=== PATIENT | female | born 1955 | race Caucasian/White ===

== ENCOUNTER → 2017-06-22 | Outpatient (CLI) | payer OTHER | END | disposition home or self-care (01) | LOC: LABPAT 15:42 | PROVIDERS: ATTEND Orthopaedic Surgery | DX: Z01.812 Encounter for preprocedural laboratory examination (principal) | CPT/HCPCS: 87070 ==

== ENCOUNTER 2017-09-09 18:27 | Emergency (ER) | payer OTHER ==
[2017-09-09 18:40] VITALS: BP 143/71; PULSE 84; RESP 18; TEMP 98
--- NOTE | 2017-09-09 19:00 | ED ---
General Adult HPI - General Chief complaint: Extremity Injury, Lower Stated complaint: post op pain and incision problem Time Seen by Provider: 09/09/17 18:44 Source: patient, RN notes reviewed Mode of arrival: wheelchair Limitations: no limitations - History of Present Illness Initial comments: 61-year-old female presents emergency 5 chief complaint of left knee and follow- up. Dr. Riley replace her left knee recently and today she just fell. She states she came down on the knee. She states she's having some pain to the knee. She is able to move the foot and the knee. She starts therapy on Sunday for the knee. They state they were concerned due to the fall. That they should be evaluated. There's been no other symptoms and the patient. She did not hit her head there is no loss of consciousness. Patient denies any recent fever, chills, shortness of breath, chest pain, back pain, abdominal pain , nausea vomiting, numbness or tingling, dysuria or hematuria, constipation or diarrhea, headaches or visual changes, or any other current symptoms. - Related Data Home Medications Medication Instructions Recorded Confirmed Amitriptyline HCl [Elavil] 25 mg PO HS 07/25/17 07/30/17 Benztropine Mesylate [Cogentin] 0.5 mg PO HS 07/25/17 07/30/17 Cholecalciferol [Vitamin D3] 1,000 units PO DAILY 07/25/17 07/30/17 Ibuprofen 800 mg PO TID PRN 07/25/17 07/30/17 Metoprolol Succinate (ER) [Toprol 50 mg PO QAM 07/25/17 07/30/17 XL] Minocycline HCl [Minocin] 100 mg PO DAILY 07/25/17 07/30/17 Multivitamins, Thera [Multivitamin 1 tab PO DAILY 07/25/17 07/30/17 (formulary)] Triazolam [Halcion] 0.5 mg PO HS 07/25/17 07/30/17 Vitamin C/Biotin [Hair, Skin and 1 tab PO DAILY 07/25/17 07/30/17 Nails] clonazePAM [Clonazepam] 2 mg PO BID 07/25/17 07/30/17 fluvoxaMINE MALEATE [Fluvoxamine 100 mg PO QAM 07/25/17 07/30/17 Maleate] fluvoxaMINE MALEATE [Fluvoxamine 200 mg PO HS 07/25/17 07/30/17 Maleate] risperiDONE [RisperDAL] 1 mg PO BID 07/25/17 07/30/17 Previous Rx's Medication Instructions Recorded Apixaban [Eliquis] 2.5 mg PO BID #30 tab 07/30/17 Sennosides-Docusate Sodium 2 each PO HS tab 08/01/17 [Senokot-S] Hydrocodone/Acetaminophen [Plush 1 each PO Q6HR PRN #40 tab 08/06/17 5-325] Allergies Allergy/AdvReac Type Severity Reaction Status Date / Time No Known Allergies Allergy Verified 09/09/17 18:39 Review of Systems ROS Statement: Those systems with pertinent positive or pertinent negative responses have been documented in the HPI. ROS Other: All systems not noted in ROS Statement are negative. Past Medical History Past Medical History: Hypertension, Osteoarthritis (OA) History of Any Multi-Drug Resistant Organisms: None Reported Past Surgical History: Joint Replacement Additional Past Surgical History / Comment(s): left knee replacement, ruptured ovarian cyst repair Past Anesthesia/Blood Transfusion Reactions: No Reported Reaction Additional Past Anesthesia/Blood Transfusion Reaction / Comment(s): no problems with prior blood transfusion Past Psychological History: Anxiety Smoking Status: Never smoker Past Alcohol Use History: None Reported Past Drug Use History: None Reported - Past Family History Mother Family Medical History: No Reported History Father Family Medical History: Cancer Additional Family Medical History / Comment(s): jaw and pancreatic CA General Exam - General Exam Comments Initial Comments: General: The patient is awake and alert, in no distress, and does not appear acutely ill. Neck: The neck is supple, there is no tenderness. Cardiovascular: There is a regular rate and rhythm. No murmur, rub or gallop is appreciated. Respiratory: Lungs are clear to auscultation, respirations are non-labored, breath sounds are equal. No wheezes, stridor, rales, or rhonchi. Musculoskeletal: Sensation intact with 2+ pulses of left lower extremity. Fund motion of left hip left knee and left ankle. Patient does appear to have a well -healed surgical incision site. She does have full range of motion. Some anterior tenderness. No swelling no deformity. Neurological: CN II-XII intact, There are no obvious motor or sensory deficits. Coordination appears grossly intact. Speech is normal. Skin: Skin is warm and dry and no rashes or lesions are noted. Psychiatric: Normal mood and affect. Limitations: no limitations Course Vital Signs 09/09/17 18:37 Temperature 98.0 F Pulse Rate 84 Respiratory 18 Rate Blood Pressure 143/71 O2 Sat by Pulse 100 Oximetry Medical Decision Making - Medical Decision Making 61-year-old female presents for left knee pain after fall. This time imaging was reviewed. We discussed results. We discussed when the knee brace. We discussed follow-up with her surgeon. We discussed return parameters all questions. Patient family stated the Jonny management this plan. All questions have been answered. They will be discharged. - Radiology Data Radiology results: report reviewed, image reviewed Disposition Clinical Impression: Contusion of left knee Disposition: HOME SELF-CARE Condition: Stable Instructions: Knee Pain (ED) Additional Instructions: Please use medication as discussed. Please follow up with family doctor if symptoms have not improved over the next two days. Please return to the emergency room if your symptoms increase or worsen or for any other concerns. Referrals: Lilly Martinez MD [Primary Care Provider] - 1-2 days Time of Disposition: 19:30
--- NOTE | 2017-09-09 19:28 | XR ---
EXAMINATION TYPE: XR knee complete LT DATE OF EXAM: 09/09/2017 CLINICAL HISTORY: Fall injury with pain. Knee replacement surgery 3 weeks ago. TECHNIQUE: Three views of the left knee are obtained. COMPARISON: Left knee x-ray August 03, 2017 FINDINGS: There is no acute fracture/dislocation evident in left knee. Metallic hardware from left k nee arthroplasty remain in satisfactory position. There is persistent mild diffuse subcutaneous edema anteriorly. IMPRESSION: There is no acute fracture or dislocation in the left knee.
== END 2017-09-09 19:46 | disposition home or self-care (01) ==
LOC: EC 18:27
DX: S80.02XA Contusion of left knee, initial encounter (principal); I10 Essential (primary) hypertension; F41.9 Anxiety disorder, unspecified; Z96.652 Presence of left artificial knee joint; Z79.899 Other long term (current) drug therapy; W19.XXXA Unspecified fall, initial encounter
CPT/HCPCS: 99283

== ENCOUNTER 2017-09-13 13:23 | Inpatient (IN) | payer OTHER ==
--- NOTE | 2017-09-12 16:39 | HP ---
HISTORY AND PHYSICAL REASON FOR ADMISSION: Surgery scheduled for 09/13/2017 Vicky Lucio is a 61-year-old patient who had previously undergone left total knee arthroplasty on 07/30/2017. She did have a subsequent fall and repair of a quadriceps tendon tear on 08/04/2017. She fell again at home on 09/05/2017 and was seen in the office and noted to have a clinical complete retinacular tear of the left knee. I recommended repair of the left knee retinaculum/capsule. The procedure, risks, complications, benefits, and recovery were discussed with both Vicky and her . They understood and were agreeable. Consent regarding the procedure was obtained. PAST MEDICAL HISTORY: Depression. PAST SURGICAL HISTORY: Bilateral total knee arthroplasty. MEDICATIONS: Amitriptyline, Clonazepam, fluoxetine, metoprolol. ALLERGIES: None. SOCIAL HISTORY: Patient denies current tobacco use. PHYSICAL EXAMINATION: Evaluation of the left knee she has a well-healed anterior incision. She is unable to extend her knee. There is obvious palpable defect medial retinaculum consistent with a complete tear. The patella is everted laterally. Her collateral ligaments are stable. Homans and Yevgeniy is negative. Distal neurovascular exam is intact. RADIOGRAPHS: Radiographs of the left knee revealed a stable appearing total knee arthroplasty. There was an obvious lateral displacement of the patella. IMPRESSION: 1. Left knee retinacular/capsular tear. 2. History of left total knee arthroplasty. PLAN: Repair left knee retinacular/capsular tear. Surgery scheduled for 09/13/2017. MMODL / IJN: [id number] /
[~2017-09-13 13:23] MED LIST: ACETAMINOPHEN TAB 500 MG TAB PO ONE; DEXAMETHASONE SOD PHOSPHATE 10 MG/ML 1 ML VIAL IV ONE; HYDROmorphone 0.5 MG/0.5 ML SYRINGE IVP PRN; LIDOCAINE 1% 20 ML VIAL (10MG/ML) FOR IV START INTRADERMA PRN; MELOXICAM 7.5 MG TAB PO ONE; MIDAZOLAM 2 MG/2 ML VIAL IV PRN; ONDANSETRON 4 MG/2 ML VIAL IVP ONE; SCOPOLAMINE 1.5MG/72HR PATCH TRANSDERM ONE; TRANEXAMIC ACID 1,000 MG in SODIUM CHLORIDE 0.9% 50 ML IVPB ONE; ceFAZolin IN SWFI 2 GM/20 ML SYRINGE IVP ONE
[2017-09-13] MEDS: LACTATED RINGERS 1,000 ML IV SCH (14:49)
[2017-09-13] MEDS ORDERED: TRANEXAMIC ACID 1,000 MG/10 ML VIAL ONE (16:45)
[2017-09-13] MEDS ORDERED: PROPOFOL 10 MG/ML 20 ML VIAL IV ONE (16:45)
[2017-09-13] MEDS ORDERED: HYDROmorphone (PF) 1 MG/ML ONE (16:45)
[2017-09-13] MEDS ORDERED: METOPROLOL TARTRATE 5 MG/5 ML VIAL IVP ONE (16:45)
[2017-09-13] MEDS ORDERED: SUCCINYLCHOLINE CHLORIDE 100 MG/5 ML SYR IV ONE (16:45)
[2017-09-13] MEDS ORDERED: fentaNYL (PF) 50 MCG/ML 2 ML AMP ONE (16:45)
[2017-09-13] MEDS ORDERED: SODIUM CHLORIDE 0.9% 100 ML BAG ONE (16:45)
[2017-09-13] MEDS ORDERED: MIDAZOLAM 2 MG/2 ML VIAL ONE (16:45)
[2017-09-13] MEDS ORDERED: LIDOCAINE 1% INJ 10MG/ML (20 ML MDV) ONE (16:45)
[2017-09-13] MEDS ORDERED: BUPIVACAINE (PF) 0.5% 30 ML VIAL SQ ONE ×2 (17:11)
[2017-09-13] MEDS ORDERED: ceFAZolin 1,000 MG in SODIUM CHLORIDE 0.9% 1,000 ML IRRIGATION ONE ×4 (17:30)
[2017-09-13] MEDS ORDERED: LACTATED RINGERS 1,000 ML IV ONE (18:11)
[2017-09-13] MEDS ORDERED: HYDROmorphone 2 MG/ML 1 ML SYRINGE IVP PRN ×2 (18:30)
[2017-09-13] MEDS ORDERED: ONDANSETRON 4 MG/2 ML VIAL IVP PRN (18:30)
[2017-09-13] MEDS ORDERED: NALOXONE 0.4 MG/ML 1 ML VIAL IV PRN (18:30)
[2017-09-13] MEDS ORDERED: MAGNESIUM HYDROXIDE 2,400 MG/10 ML CUP PO PRN (18:30)
--- NOTE | 2017-09-13 18:32 | P.OP ---
Date of Procedure: 09/13/17 Preoperative Diagnosis: Left knee quadriceps tendon tear and medial retinacular tear Postoperative Diagnosis: Left knee quadriceps tendon tear and medial retinacular tear Procedure(s) Performed: Left knee open quadriceps tendon repair and medial retinacular repair Anesthesia: SEBLE local Surgeon: Clay Cheney Hot Oiler #1: Contreras Mcadams Estimated Blood Loss (ml): 75 Pathology: none sent Condition: stable Disposition: PACU Indications for Procedure: 59-year-old patient seen with a probable left knee medial retinacular tear and quadriceps tendon tear after having undergone recent fall with history of total knee arthroplasty. I recommended open exploration and repair. I discussed the procedure, risks, complications and recovery in detail with both the patient and her . They were agreeable and consent regarding the procedure was obtained. Operative Findings: see description of procedure Description of Procedure: The patient was taken to the operative suite after having received preoperative IV antibiotics. The patient underwent a general anesthetic by the department of anesthesia. A well-padded tourniquet was placed on proximal left lower extremity. The left lower extremity was then prepped and draped in the normal sterile orthopedic fashion. The tourniquet was insufflated. I made an incision over the previous cicatrix sharply through skin. I merely encountered serosanguineous fluid upon entering the subcu cutaneous aspect. There was an obvious complete retinacular tear. Upon further dissection was also a mid substance lateral sided quadriceps tendon tear. The medial quadriceps tendon was intact. We had to carefully dissect this out to make certain we had good tissue. We also dissected out the medial retinaculum to have a good tissue to repair to. All the residual suture was now removed meticulously. We irrigated the wound out copiously with pulse lavage mechanical irrigation. I now repaired the quadriceps tendon tear utilizing #2 Ethibond. I repaired the medial retinaculum with #2 Ethibond. This is all done with simple interrupted sutures. I now oversew this with multiple interrupted #3 Vicryl sutures. This is meticulously repaired. We now took the knee through range of motion and was able to flex to 90 with a good solid repair noted. We irrigated the subcu soft tissues with pulse lavage mechanical irrigation. We now began closing the subcutaneous soft tissues in layers with 2-0 Vicryl. We now repaired the skin with skin sharyn. The subcu soft tissues were infiltrated with 20 mL half percent plain Marcaine. We applied sterile dressings. The tourniquet was released with immediate capillary refill the extremity noted. We now applied sterile web bone Luis Antonio bandage. The extremity is placed in a knee immobilizer in full extension. The patient was awakened, transferred to a bed and taken recovery stable condition. Kristopher AGUIRRE assisted with the procedure.
[2017-09-13] MEDS ORDERED: TRANEXAMIC ACID 1,000 MG/10 ML VIAL IVPB ONE (19:00)
[2017-09-13 20:02] LABS: Glucose,Whole Blood 146 mg/dL (75-99)
[2017-09-13] MEDS: traMADol 50 MG TAB PO SCH (22:32)
[2017-09-13] MEDS: SENNOSIDES-DOCUSATE SODIUM 1 EACH TAB PO SCH (23:42)
[2017-09-13] MEDS: ceFAZolin IN SWFI 2 GM/20 ML SYRINGE IVP SCH (23:45)
[2017-09-13] MEDS: HYDROcodone/APAP 7.5-325MG 1 EACH TAB PO PRN (23:55)
[2017-09-14] MEDS: ACETAMINOPHEN TAB 325 MG TAB PO PRN ×3 (03:11→22:43)
[2017-09-14 04:35] LABS: Appearance,Urine Clear (Clear); Bilirubin,Urine Negative (Negative); Blood,Urine Negative (Negative); Color,Urine Yellow; Glucose,Urine (UA) Negative (Negative); Ketones,Urine Negative (Negative); Leukocyte Esterase,Urine Negative (Negative); Nitrite,Urine Negative (Negative); Protein,Urine Negative (Negative); Specific Gravity,Urine 1.005 (1.001-1.035); Urobilinogen,Urine <2.0 mg/dL (<2.0)
[2017-09-14 05:13] VITALS: BMI 33.8
[2017-09-14] MEDS: LACTATED RINGERS 1,000 ML IV SCH ×2 (05:13→23:10)
[2017-09-14 07:22] LABS: Glucose,Whole Blood 150 mg/dL (75-99)
[2017-09-14 07:26] LABS: Basophils % (A) 0 %; Eosinophils % (A) 0 %; HCT 35.5 % (34.0-46.0); HGB 10.4 gm/dL (11.4-16.0); Hypochromasia Marked; Lymphocytes % (A) 11 %; MCH 22.7 pg (25.0-35.0); MCHC 29.3 g/dL (31.0-37.0); MCV 77.6 fL (80.0-100.0); Mean Platelet Volume 6.7; Monocytes # (A) 0.7 k/uL (0-1.0); Monocytes % (A) 8 %; Neutrophils # (A) 7.1 k/uL (1.3-7.7); Neutrophils % (A) 79 %; Platelet Count 276 k/uL (150-450); RBC 4.57 m/uL (3.80-5.40); RDW 14.6 % (11.5-15.5); WBC 8.9 k/uL (3.8-10.6)
[2017-09-14] MEDS: HYDROcodone/APAP 7.5-325MG 1 EACH TAB PO PRN ×2 (08:27→16:40)
[2017-09-14] MEDS: traMADol 50 MG TAB PO SCH ×4 (08:28→22:05)
[2017-09-14] MEDS: RIVAROXABAN 10 MG TAB PO SCH (08:28)
[2017-09-14] MEDS: ceFAZolin IN SWFI 2 GM/20 ML SYRINGE IVP SCH (08:29)
--- NOTE | 2017-09-14 12:35 | P.PN ---
Subjective Progress Note Date: 09/14/17 Principal diagnosis: Status post medial retinacular repair, quadriceps tendon repair left knee Patient is visualized today resting in her hospital bed. She appears comfortable. She does admit to discomfort in the knee. She is utilizing a knee immobilizer, postoperative bandage is intact. She denies any headaches, lightheadedness, chest pain or shortness of breath. Objective - Vital Signs Vital signs: Vital Signs Temp 98.7 F 09/14/17 07:00 Pulse 84 09/14/17 07:00 Resp 16 09/14/17 07:00 BP 146/54 09/14/17 07:00 Pulse Ox 93 L 09/14/17 07:00 Intake & Output 09/13/17 09/14/17 09/14/17 18:59 06:59 18:59 Intake Total 1102 950 200 Output Total 75 Balance 1027 950 200 Weight 101 kg Intake: IV 1102 400 Intake, IV Titration 550 Amount Lactated Ringers 1,000 ml 550 @ 50 mls/hr IV .Q20H DK Rx#:[id number] Oral 200 Output: Estimated Blood Loss 75 Other: Voiding Method Diaper - Exam Left lower extremity: Initial postoperative bandage is intact with Luis Antonio wrap. The immobilizer is in good position. Plantar flexion, dorsiflexion, EHL, FHL are intact. Sensory exam light touch is intact, dorsal pedis pulses 2+. - Labs CBC & Chem 7: 09/14/17 06:34 Labs: Abnormal Lab Results - Last 24 Hours (Table) 09/13/17 09/14/17 09/14/17 Range/Units 19:40 06:34 07:07 Hgb 10.4 L (11.4-16.0) gm/dL MCV 77.6 L (80.0-100.0) fL MCH 22.7 L (25.0-35.0) pg MCHC 29.3 L (31.0-37.0) g/dL POC Glucose (mg/dL) 146 H 150 H (75-99) mg/dL Assessment and Plan Plan: Assessment: 1. Postop day #1 status post left knee medial retinacular repair, quadriceps tendon repair Plan: 1. Pain control, continue use of oral medications, avoid IV narcotics if possible 2. Nonweightbearing left lower extremity 3. Utilize knee immobilizer 4. GI and DVT prophylaxis, continue Xarelto 10 mg 5. Ice and elevate 6. Medical recommendations 7. Discharge planning: Plan for patient to be discharged to rehab facility, we will await placement Time with Patient: Less than 30
--- NOTE | 2017-09-14 12:52 | XR ---
EXAMINATION TYPE: XR chest 1V portable DATE OF EXAM: 09/14/2017 COMPARISON: 08/02/2017 HISTORY: ECF placement TECHNIQUE: Single frontal view of the chest is obtained. FINDINGS: Calcified lymph nodes are noted. There is a calcified nodule in the left upper lobe. Near changes are most typical atelectasis. There is some limitation at the left lung base. Arthropathy of the shoulders. IMPRESSION: Subsegmental linear atelectasis noted with no diagnostic evidence of acute infiltrate. C orrelate for chronic granulomatous disease. 7 mm nodule left upper lobe also likely is related to gra nuloma and stable from the previous exam. This could be confirmed with CT scan.
[2017-09-14] MEDS ORDERED: HYDROmorphone 0.5 MG/0.5 ML SYRINGE IVP PRN ×2 (16:09)
[2017-09-14] MEDS ORDERED: clonazePAM 1 MG TAB PO STA (17:21)
[2017-09-14] MEDS: SENNOSIDES-DOCUSATE SODIUM 1 EACH TAB PO SCH (20:06)
[2017-09-14] MEDS: AMITRIPTYLINE HCL 25 MG TAB PO SCH (20:08)
[2017-09-14] MEDS: risperiDONE 1 MG TAB PO SCH (20:08)
[2017-09-14] MEDS: BENZTROPINE MESYLATE 0.5 MG TAB PO SCH (20:08)
[2017-09-14] MEDS: TEMAZEPAM 30 MG CAP PO SCH (20:11)
[2017-09-14] MEDS: clonazePAM 1 MG TAB PO SCH (20:33)
[2017-09-14] MEDS ORDERED: clonazePAM 1 MG TAB PO PRN (20:34)
[2017-09-14] MEDS ORDERED: SENNOSIDES-DOCUSATE SODIUM 1 EACH TAB PO SCH (21:00)
--- NOTE | 2017-09-14 22:02 | CONS ---
CONSULTATION DATE OF CONSULTATION: 09/14/2017 REASON FOR CONSULTATION: Medical management requested by Dr. Cheney. CONSULTATION: This is a 61-year-old patient whom I initially saw in consultation on her last admission on 07/30/2017, when the patient had undergone a left total knee arthroplasty. The patient had some delirium postoperatively, and on that admission patient suffered a hyperreflexic injury to the left knee and patient was taken back for repair of tendon. The patient this time had to be taken back into the OR for repair of the quadriceps, and left leg is in a brace. The patient's chronic stable medical conditions include essential hypertension, osteoarthritis, anxiety. Some pain is present in the operative site. REVIEW OF SYSTEMS: CONSTITUTIONAL: None. HEENT: None. RESPIRATORY: None. CARDIOVASCULAR: None. GASTROINTESTINAL: Chronic constipation. GENITOURINARY: None. MUSCULOSKELETAL: Arthritic pain in the joints, especially in the left knee. DERMATOLOGICAL: None. HEMATOLOGICAL: None. LYMPHATICS: None. PSYCHIATRY: Anxiety. NEUROLOGICAL: None. PAST MEDICAL HISTORY: 1. Hypertension. 2. Osteoarthritis. 3. Chronic constipation. 4. Anxiety. PAST SURGICAL HISTORY: 1. Ruptured ovarian cyst. 2. Left total knee arthroplasty and injury of tendons around the left knee joint. SOCIAL HISTORY: Does not smoke or drink alcohol. Lives with Ko. HOME MEDICATIONS: 1. Senokot-S 2 tablets p.o. at bedtime. 2. Toprol-XL 50 mg a day. 3. Risperdal 1 mg p.o. b.i.d. 4. Ibuprofen 800 mg t.i.d. p.r.n. 5. Aspirin 325 p.o. daily. 6. Fluvoxamine 100 mg p.o. daily and 200 mg at bedtime. 7. Clonazepam 2 mg p.o. b.i.d. 8. Hair/skin/nails 1 tablet p.o. daily. 9. Halcion 0.5 mg at bedtime. 10.Multivitamin. 11.Vitamin D3 1000 units p.o. daily. 12.Cogentin 0.5 mg at bedtime. 13.Elavil 25 mg p.o. at bedtime. ALLERGIES: NORCO. PHYSICAL EXAMINATION: Temperature 97.6, pulse 90, respiration 20, blood pressure 167/77, pulse ox 98% on room air earlier in the day. GENERAL APPEARANCE: Well built; BMI 33.9. Sitting up, slightly anxious. EYES: Pupils equal. Conjunctivae normal. HEENT: Oral cavity normal. NECK: JVD not raised. Mass not palpable. RESPIRATORY: Effort normal. Lungs are clear. CARDIOVASCULAR: First and second sounds normal. No edema. ABDOMEN: Soft, nontender. Liver and spleen not palpable. LYMPHATIC: No lymph node palpable in neck or axillae. PSYCHIATRY: Alert and oriented x3. Mood and affect anxious-appearing. NEUROLOGICAL: Pupils equal. Cranial nerves grossly intact. Power and sensation grossly intact. EXTREMITIES: Left leg is in a brace. INVESTIGATIONS: White count 8.9, hemoglobin 10.4, platelets 276. UA negative. ASSESSMENT: 1. Left knee quadriceps tendon repair and medial retinacular tear repair with her left leg in a brace. 2. Obesity; body mass index of 33.9. 3. Essential hypertension. 4. Primary osteoarthritis. 5. Anxiety not otherwise specified. 6. Chronic constipation, idiopathic. PLAN: Home medications will be resumed. Care was discussed with the patient. I did tell the nurse that once patient gets her evening dose of antipsychotics, patient should be allowed to rest and not be woken up except to keep a close eye on her. Thank you, Dr. Cheney. MMNHANL / IJN: [id number] /
[2017-09-15] MEDS: clonazePAM 1 MG TAB PO SCH ×2 (07:15→20:13)
[2017-09-15] MEDS: risperiDONE 1 MG TAB PO SCH ×2 (07:16→20:09)
[2017-09-15] MEDS: CHOLECALCIFEROL 1,000 UNIT TAB PO SCH (07:16)
[2017-09-15] MEDS: RIVAROXABAN 10 MG TAB PO SCH (07:16)
[2017-09-15] MEDS: MULTIVITAMINS, THERA 1 EACH TAB PO SCH (07:16)
[2017-09-15] MEDS: METOPROLOL SUCCINATE (ER) 50 MG TAB.ER.24H PO SCH (07:16)
[2017-09-15] MEDS: traMADol 50 MG TAB PO SCH ×3 (07:18→19:09)
[2017-09-15] MEDS: LACTATED RINGERS 1,000 ML IV SCH (07:21)
--- NOTE | 2017-09-15 11:23 | P.PN ---
Progress Note - Text Progress Note Date: 09/15/17 Patient seen lying in bed comfortably. She reports some pain along the anterior aspect of the knee. She has no other complaints. The dressing and bandage are removed. The incision is well approximated and healing well. There is no drainage. Homans and Yevgeniy negative. Distal neurovascular exam is intact. Impression: Status post left knee quadriceps tendon and medial retinacular repair History left total knee arthroplasty Plan: Medical management DVT prophylaxis Pain control Await rehab transfer
[2017-09-15] MEDS: IBUPROFEN 800 MG TAB PO PRN ×2 (12:05→19:09)
[2017-09-15] MEDS: CEPHALEXIN 500 MG CAP PO SCH ×3 (12:06→20:10)
[2017-09-15 14:11] VITALS: RESP 16
--- NOTE | 2017-09-15 19:39 | PN ---
PROGRESS NOTE DATE OF SERVICE: 09/15/2017 ATTENDING NOTE: The patient seen and examined by me. I discussed with my nurse practitioner, Ms. Dudley. The patient is status post left knee surgery, doing better. Tolerating a diet. Patient is calm. EXAMINATION: Afebrile, blood pressure 140/66. CARDIOVASCULAR: First and second sounds normal. PSYCH: AO x3. ASSESSMENT: 1. Left knee quadriceps tendon repair. 2. Anxiety and depression, not otherwise specified. PLAN: Continue current medication and treatment plan. Labs are noted. MMODL / IJN: [id number] /
[2017-09-15] MEDS: BENZTROPINE MESYLATE 0.5 MG TAB PO SCH (20:09)
[2017-09-15] MEDS: AMITRIPTYLINE HCL 25 MG TAB PO SCH (20:09)
[2017-09-15] MEDS: TEMAZEPAM 30 MG CAP PO SCH (20:13)
[2017-09-16] MEDS: traMADol 50 MG TAB PO SCH ×5 (04:50→22:59)
[2017-09-16 07:59] LABS: HCT 36.7 % (34.0-46.0); HGB 10.7 gm/dL (11.4-16.0); Hypochromasia Marked; MCH 23.2 pg (25.0-35.0); MCHC 29.1 g/dL (31.0-37.0); MCV 79.8 fL (80.0-100.0); Mean Platelet Volume 6.7; Platelet Count 257 k/uL (150-450); RDW 15.1 % (11.5-15.5); WBC 7.6 k/uL (3.8-10.6)
[2017-09-16] MEDS: clonazePAM 1 MG TAB PO SCH ×2 (08:47→19:58)
[2017-09-16] MEDS: CEPHALEXIN 500 MG CAP PO SCH ×4 (08:48→22:59)
[2017-09-16] MEDS: RIVAROXABAN 10 MG TAB PO SCH (08:48)
[2017-09-16] MEDS: MULTIVITAMINS, THERA 1 EACH TAB PO SCH (08:49)
[2017-09-16] MEDS: CHOLECALCIFEROL 1,000 UNIT TAB PO SCH (08:49)
[2017-09-16] MEDS: METOPROLOL SUCCINATE (ER) 50 MG TAB.ER.24H PO SCH (08:49)
[2017-09-16] MEDS: risperiDONE 1 MG TAB PO SCH ×2 (08:50→19:58)
[2017-09-16] MEDS: LACTATED RINGERS 1,000 ML IV SCH (08:50)
[2017-09-16] MEDS: IBUPROFEN 800 MG TAB PO PRN ×2 (09:09→16:23)
[2017-09-16 10:20] LABS: Eosinophils # (M) 0.15 k/uL (0-0.7); Lymphocytes # (M) 2.89 k/uL (1.0-4.8); Monocytes # (M) 0.91 k/uL (0-1.0); Neutrophils # (M) 3.65 k/uL (1.3-7.7); Neutrophils % (M) 48 %; Nucleated Red Blood Cells 0 /100 WBC (0-0); Poikilocytosis (M) Present; Total Cells Counted 100
--- NOTE | 2017-09-16 11:44 | P.PN ---
Progress Note - Text Progress Note Date: 09/16/17 Patient seen lying in bed. Patient appears comfortable and reports decreased pain today. She has no new complaints. Incision is well approximated. There is no drainage. Homans and Yevgeniy negative. Distal neurovascular exam is intact. Impression: Status post repair left knee quadriceps tendon and retinacular tear History left total knee arthroplasty Plan: Medical management DVT prophylaxis Anticipate transfer to rehab tomorrow
[2017-09-16] MEDS: BENZTROPINE MESYLATE 0.5 MG TAB PO SCH (19:55)
[2017-09-16] MEDS: AMITRIPTYLINE HCL 25 MG TAB PO SCH (19:55)
[2017-09-16] MEDS: TEMAZEPAM 30 MG CAP PO SCH (19:58)
[2017-09-16] MEDS: SENNOSIDES-DOCUSATE SODIUM 1 EACH TAB PO SCH (19:58)
--- NOTE | 2017-09-16 20:49 | PN ---
PROGRESS NOTE DATE OF SERVICE: September 16, 2017. ATTENDING NOTE: Patient seen and examined by me. I discussed with nurse practitioner, Ms. Dudley. The patient tolerating a diet. Pain is controlled. EXAM: Lungs are clear. Cardiovascular 1st and 2nd sounds normal. Psych AO x3. ASSESSMENT: Left knee surgical intervention. Other medical treatment currently stable. PLAN: Care was discussed with the patient. Continue treatment plan. MMODL / IJN: [id number] /
--- NOTE | 2017-09-16 21:52 | P.PN ---
Progress Note - Text Progress Note Date: 09/16/17 DATE OF SERVICE: 09/16/2017 PRESENTING COMPLAINT: Quadriceps repair of the left leg. Medical management HISTORY OF PRESENT ILLNESS: 61-year-old female who is status post left knee open quadriceps tendon repair and medial retinacular repair. . INTERVAL HISTORY: 09/16/2017: Patient lying in bed appears comfortable. Afebrile, vital signs stable, Complaining of gas and some abdominal cramping. Up with assistance tolerating her diet, last BM prior to admission. REVIEW OF SYSTEMS: Done for constitutional ,cardiovascular, GI, pulmonary with relevant findings as above. CURRENT MEDICATIONS Ibuprofen, lidocaine, milk of magnesia, Toprol-XL, Theragran, Zofran, Risperdal , Zofran, Xarelto, Senokot-S, Restoril, Ultram. PHYSICAL EXAM VITAL SIGNS: Temperature 97.4, pulse 91, respiratory rate 16, blood pressure 133/79, oxygen saturation 96% GENERAL APPEARANCE: Lying in bed, not in distress. HEENT: Normocephalic, Pupils equal. Conjunctiva normal. JVD not raised. Mass not palpable.: RESPIRATORY: Respiratory effort normal. Lungs clear to auscultation. CARDIOVASCULAR: First and second sounds normal. No edema. ABDOMEN: Soft. Liver and spleen not palpable. No tenderness. No mass palpable. PSYCHIATRY: Alert and oriented x3. Mood and affect normal. EXTREMITIES: Left leg is in a brace. INVESTIGATIONS: Hemoglobin 10.7, ASSESSMENT: -Left knee quadriceps tendon repair and medial retinacular tear repair with her left knee and leg in a brace. -Obesity body mass index of 33.9. -Essential hypertension. -Primary osteoarthritis. -Anxiety not otherwise specified. -Chronic constipation, idiopathic. PLAN: Continue current medication and treatment plan, mobilization per orthopedics. Plan of care discussed at the bedside with the patient she is in agreement. We will follow closely. 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 Noel
--- NOTE | 2017-09-16 21:55 | P.PN ---
Progress Note - Text Progress Note Date: 09/15/17 DATE OF SERVICE: 09/15/2017 PRESENTING COMPLAINT: Quadriceps repair of the left leg. Medical management HISTORY OF PRESENT ILLNESS: 61-year-old female who is status post left knee open quadriceps tendon repair and medial retinacular repair. . INTERVAL HISTORY: 09/16/2017: Patient lying in bed appears comfortable. Afebrile, vital signs stable, Complaining of gas and some abdominal cramping. Up with assistance tolerating her diet, last BM prior to admission. 09/15/2017: Lying in bed appears somewhat restless. Afebrile, vital signs stable. Has not yet had a bowel movement. Complains of some abdominal cramping. Up with assistance, tolerating her diet, last BM prior to admission. REVIEW OF SYSTEMS: Done for constitutional ,cardiovascular, GI, pulmonary with relevant findings as above. CURRENT MEDICATIONS Ibuprofen, lidocaine, milk of magnesia, Toprol-XL, Theragran, Zofran, Risperdal , Zofran, Xarelto, Senokot-S, Restoril, Ultram. PHYSICAL EXAM VITAL SIGNS: Temperature 97.0, pulse 87, respirations 16, blood pressure 142/66, oxygen saturation 94%. GENERAL APPEARANCE: Lying in bed, not in distress. HEENT: Normocephalic, Pupils equal. Conjunctiva normal. JVD not raised. Mass not palpable.: RESPIRATORY: Respiratory effort normal. Lungs clear to auscultation. CARDIOVASCULAR: First and second sounds normal. No edema. ABDOMEN: Soft. Liver and spleen not palpable. No tenderness. No mass palpable. PSYCHIATRY: Alert and oriented x3. Mood and affect normal. EXTREMITIES: Left leg is in a brace. INVESTIGATIONS: None new ASSESSMENT: -Left knee quadriceps tendon repair and medial retinacular tear repair with her left knee and leg in a brace. -Obesity body mass index of 33.9. -Essential hypertension. -Primary osteoarthritis. -Anxiety not otherwise specified. -Chronic constipation, idiopathic. PLAN: Continue current medication and treatment plan, mobilization per orthopedics. Plan of care discussed at the bedside with the patient she is in agreement. We will follow closely. 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 Noel
[2017-09-17 07:52] LABS: Anion Gap 7 mmol/L; Blood Urea Nitrogen 9 mg/dL (7-17); Calcium 9.1 mg/dL (8.4-10.2); Carbon Dioxide 31 mmol/L (22-30); Chloride 106 mmol/L (98-107); Glucose 92 mg/dL (74-99); Potassium 3.8 mmol/L (3.5-5.1); Sodium 144 mmol/L (137-145)
[2017-09-17] MEDS: clonazePAM 1 MG TAB PO SCH ×2 (08:55→20:49)
[2017-09-17] MEDS: POLYETHYLENE GLYCOL 3350 17 GM POWD.PACK PO SCH (08:55)
[2017-09-17] MEDS: risperiDONE 1 MG TAB PO SCH ×2 (08:56→20:49)
[2017-09-17] MEDS: CEPHALEXIN 500 MG CAP PO SCH ×4 (08:57→20:48)
[2017-09-17] MEDS: METOPROLOL SUCCINATE (ER) 50 MG TAB.ER.24H PO SCH (08:57)
[2017-09-17] MEDS: RIVAROXABAN 10 MG TAB PO SCH (08:58)
[2017-09-17] MEDS: traMADol 50 MG TAB PO SCH ×4 (09:01→20:48)
[2017-09-17] MEDS: MULTIVITAMINS, THERA 1 EACH TAB PO SCH (12:25)
[2017-09-17] MEDS: CHOLECALCIFEROL 1,000 UNIT TAB PO SCH (12:26)
--- NOTE | 2017-09-17 12:42 | P.PN ---
Subjective Progress Note Date: 09/17/17 Principal diagnosis: Status post medial retinacular repair, quadriceps tendon repair left knee Patient is visualized today resting in her hospital bed. She appears comfortable. She is utilizing a knee immobilizer brace. She denies any headaches, lightheadedness, chest pain or shortness of breath. Objective - Vital Signs Vital signs: Vital Signs Temp 98.4 F 09/17/17 07:00 Pulse 87 09/17/17 07:00 Resp 16 09/17/17 07:00 BP 126/78 09/17/17 07:00 Pulse Ox 96 09/17/17 07:00 Intake & Output 09/16/17 09/17/17 09/17/17 18:59 06:59 18:59 Intake Total 400 Balance 400 Intake: Intake, IV Titration 400 Amount Lactated Ringers 1,000 ml 400 @ 50 mls/hr IV .Q20H DK Rx#:[id number] Other: Voiding Method Bedside Commode Diaper # Voids 1 3 - Exam Left lower extremity: Incision is clean, dry and intact. The immobilizer is in good position. Plantar flexion, dorsiflexion, EHL, FHL are intact. Sensory exam light touch is intact, dorsal pedis pulses 2+. - Labs CBC & Chem 7: 09/16/17 07:03 09/17/17 07:00 Labs: Abnormal Lab Results - Last 24 Hours (Table) 09/17/17 Range/Units 07:00 Carbon Dioxide 31 H (22-30) mmol/L Assessment and Plan Plan: Assessment: 1. Postop day #2 status post left knee medial retinacular repair, quadriceps tendon repair Plan: 1. Pain control, continue use of oral medications, avoid IV narcotics if possible 2. Nonweightbearing left lower extremity 3. Utilize knee immobilizer 4. GI and DVT prophylaxis, continue Xarelto 10 mg 5. Ice and elevate 6. Medical recommendations 7. Discharge planning: plan to discharge to rehab today Time with Patient: Less than 30
--- NOTE | 2017-09-17 12:49 | P.DS ---
Providers Date of admission: 09/13/17 14:12 Expected date of discharge: 09/17/17 Attending physician: Clay Cheney Consults: 09/13/17 18:33 Consult Physician Routine Consulting Provider: Kennedy Noel Consult Reason/Comments: Medical Management Do you want consulting provider notified?: Yes Primary care physician: Lilly Martinez Hospital Course: Date of admission: 09/13/2017 Date of discharge: 09/17/2017 Admission diagnosis: status post left knee quadriceps tendon repair and medial retinacular repair Discharge diagnosis: same Attending physician: Dr. Cheney Surgical procedures: Left knee quadriceps tendon repair and medial retinacular repair Brief history: Patient is a 61-year-old female with a history of a previous left total knee arthroplasty. Patient had been doing fairly well with her rehab , she had a fall at home about a week and a half ago. It was determined there was damage to the medial retinacular and possible quadriceps tendon. She was scheduled for elective medial retinacular repair and possible quadriceps tendon repair involving the left knee on 09/13/2017. Hospital course: Details of patient's surgery can be found in operative report. Patient tolerated the procedure well and was subsequently transported to orthopedic floor. Patient's orthopeidc and medical care was provided daily. Patient had daily laboratory tests performed for evaluation of overall blood counts . Patient had daily physical therapy to include strengthening range of motion as well as education with walker ambulation. Patient was treated with Xarelto for their postoperative DVT prophylaxis during their inpatient stay. Patient was noted to have a relatively uneventful postoperative course. Patient reported satisfactory pain control with oral pain medications by postoperative day 0. Patient showed satisfactory progress with physical therapy. Patient moved steadily through the program and had no difficulty meeting the goals by postoperative day 4. Given patient's otherwise satisfactory course and having met physical therapy goals, plan is to discharge patient rehab on postoperative day 4. Discharge condition/disposition: Patient will be discharged to rehab in stable condition. Discharge medications: Instructions are given on resumption of patient's normal daily medications per primary care recommendation, in addition patient will be prescribed Williams 7.5 mg/325 mg, tramadol 50 mg, Xarelto 10 mg. Discharge instructions: 1. Wound care and infection precautions, keep incision dry and covered while showering, no lotions, creams, moisturizers. No soaking, tubs, pools, hottubs. Do not scrub over the incision. 2. Nonweightbearing left lower extremity 3. Ice and elevate when necessary. Do not exceed 20 minutes per hour with ice pack. 4. Utilize compression sleeve until seen at first follow up appointment. 5. Visiting nursing care. 6. Home physical therapy. 7. Pain meds and anticoagulants per prescription. 8. Pain medication has potential to cause constipation. Increase oral fluid and fiber intake. Contact primary care provider if you have not had a bowel movement within 48 hours after discharge 9. No anti-inflammatory medication until discussed at first post operative visit, this including Motrin, Aleve, Mobic, Diclofenac. 10. Follow up in office at 2 weeks postop with Kristopher Mcadams PA-C 11. Follow up with your primary care doctor 7-10 days after discharge. 12. Contact [facility] with any questions, . Procedures: Open quadriceps tendon repair and medial retinacular repair left knee, history of left total knee arthroplasty Patient Condition at Discharge: Good Plan - Discharge Summary Discharge Rx Participant: Yes New Discharge Prescriptions: New HYDROcodone/APAP 7.5-325MG [Williams 7.5] 1 each PO Q8HR PRN #40 tab PRN Reason: Pain Rivaroxaban [Xarelto] 10 mg PO DAILY #28 tab traMADol HCl [Ultram] 50 mg PO Q6H PRN #40 tab PRN Reason: Pain No Action Triazolam [Halcion] 0.5 mg PO HS Multivitamins, Thera [Multivitamin (formulary)] 1 tab PO DAILY fluvoxaMINE MALEATE [Fluvoxamine Maleate] 200 mg PO HS fluvoxaMINE MALEATE [Fluvoxamine Maleate] 100 mg PO QAM Benztropine Mesylate [Cogentin] 0.5 mg PO HS Metoprolol Succinate (ER) [Toprol XL] 50 mg PO QAM clonazePAM [Clonazepam] 2 mg PO BID Amitriptyline HCl [Elavil] 25 mg PO HS risperiDONE [RisperDAL] 1 mg PO BID Ibuprofen 800 mg PO TID PRN PRN Reason: Pain Vitamin C/Biotin [Hair, Skin and Nails] 1 tab PO DAILY Cholecalciferol [Vitamin D3] 1,000 units PO DAILY Aspirin 325 mg PO DAILY Sennosides-Docusate Sodium [Senokot-S] 2 tab PO HS Discharge Medication List Amitriptyline HCl [Elavil] 25 mg PO HS 07/25/17 [History] Benztropine Mesylate [Cogentin] 0.5 mg PO HS 07/25/17 [History] Cholecalciferol [Vitamin D3] 1,000 units PO DAILY 07/25/17 [History] Ibuprofen 800 mg PO TID PRN 07/25/17 [History] Metoprolol Succinate (ER) [Toprol XL] 50 mg PO QAM 07/25/17 [History] Multivitamins, Thera [Multivitamin (formulary)] 1 tab PO DAILY 07/25/17 [History ] Triazolam [Halcion] 0.5 mg PO HS 07/25/17 [History] Vitamin C/Biotin [Hair, Skin and Nails] 1 tab PO DAILY 07/25/17 [History] clonazePAM [Clonazepam] 2 mg PO BID 07/25/17 [History] fluvoxaMINE MALEATE [Fluvoxamine Maleate] 100 mg PO QAM 07/25/17 [History] fluvoxaMINE MALEATE [Fluvoxamine Maleate] 200 mg PO HS 07/25/17 [History] risperiDONE [RisperDAL] 1 mg PO BID 07/25/17 [History] Sennosides-Docusate Sodium [Senokot-S] 2 tab PO HS 09/13/17 [History] HYDROcodone/APAP 7.5-325MG [Williams 7.5] 1 each PO Q8HR PRN #40 tab 09/17/17 [Rx] Rivaroxaban [Xarelto] 10 mg PO DAILY #28 tab 09/17/17 [Rx] traMADol HCl [Ultram] 50 mg PO Q6H PRN #40 tab 09/17/17 [Rx] Follow up Appointment(s)/Referral(s): Delores Hester, [NON-STAFF] - As Needed Contreras Mcadams PAC [PHYSICIAN HEEL SHAPER] - 2 Weeks Activity/Diet/Wound Care/Special Instructions: Orthopedic Discharge Instructions: 1. Wound care and infection precautions, keep incision dry and covered while showering, no lotions, creams, moisturizers. No soaking, pools, hot tubs. Do not scrub over incision. 2. Nonweightbearing left lower extremity. 3. Ice and elevate when necessary. Do not exceed 20 minutes per hour with ice pack. 4. Utilize compression sleeve until seen at first follow up appointment. 5. Visiting nursing care. 6. Home physical therapy. 7. Pain meds and anticoagulants per prescription. 8. Pain medication has potential to cause constipation. Increase oral fluid and fiber intake. Contact primary care provider if you have not had a bowel movement within 48 hours after discharge. 9. No anti-inflammatory medication until discussed at first post operative visit, this including Motrin, Aleve, Mobic, Diclofenac. 10. Follow up in office at 2 weeks postop with Kristopher Mcadams PA-C 11. Follow up with your primary care doctor 7-10 days after discharge. 12. Contact [facility] with any questions, . NON WEIGHTBEARING LEFT LOWER EXTREMITY UTILIZE KNEE IMMOBILIZER AT ALL TIMES Discharge Disposition: TRANSFER TO SNF/ECF
[2017-09-17] MEDS: IBUPROFEN 800 MG TAB PO PRN (13:18)
--- NOTE | 2017-09-17 16:50 | PN ---
PROGRESS NOTE DATE OF SERVICE: 09/17/17 ATTENDING NOTE: Patient seen and examined by me. I discussed with nurse practitioner, Cintiacamelia. The patient in bed. Had some couple of loose stools, has getting laxatives. Otherwise, tolerating a diet. Pain is well controlled. EXAMINATION: Temp 98.4, pulse 87, respirations 16, blood pressure 122/78, pulse ox 96% on room air. Lying in bed comfortable. Lungs are clear. Cardiovascular 1st and second sounds normal. INVESTIGATIONS: White count 7.6, potassium 3.8. ASSESSMENT: 1. Surgery on the left leg. 2. Diarrhea from laxatives to be cut back. PLAN: Care was discussed with the patient. We will DC the Marcella INGRAM / ROBINSON: [id number] /
[2017-09-17] MEDS: ACETAMINOPHEN TAB 325 MG TAB PO PRN (17:09)
--- NOTE | 2017-09-17 20:11 | P.PN ---
Progress Note - Text Progress Note Date: 09/17/17 DATE OF SERVICE: 09/17/2017 PRESENTING COMPLAINT: Quadriceps repair of the left leg. Medical management HISTORY OF PRESENT ILLNESS: 61-year-old female who is status post left knee open quadriceps tendon repair and medial retinacular repair. . INTERVAL HISTORY: 09/17/2017: Patient lying in bed appears comfortable. No acute overnight events, continues to complain of some abdominal cramping and bloating. Asking for more laxatives. Up with assistance, tolerating her diet eating between 50 and 75% of her meals, continue nonweightbearing status of the left lower extremity and use the knee immobilizer. 09/16/2017: Patient lying in bed appears comfortable. Afebrile, vital signs stable, Complaining of gas and some abdominal cramping. Up with assistance tolerating her diet, last BM prior to admission. REVIEW OF SYSTEMS: Done for constitutional ,cardiovascular, GI, pulmonary with relevant findings as above. CURRENT MEDICATIONS Tylenol, [place], Elavil, Cogentin, Keflex, cholecalciferol, clonazepam, Luvox, Dilaudid, ibuprofen, milk of magnesia, Toprol-XL, Theragran vitamins, Narcan, Zofran, MiraLAX, Risperdal, Xarelto Agueda Ultram. PHYSICAL EXAM VITAL SIGNS: Temperature 98.4, pulse 87, respiratory rate 16, blood pressure 126/78, oxygen saturation 96% on room air. GENERAL APPEARANCE: Lying in bed, not in distress. HEENT: Normocephalic, Pupils equal. Conjunctiva normal. JVD not raised. Mass not palpable.: RESPIRATORY: Respiratory effort normal. Lungs clear to auscultation. CARDIOVASCULAR: First and second sounds normal. No edema. ABDOMEN: Soft. Liver and spleen not palpable. No tenderness. No mass palpable. PSYCHIATRY: Alert and oriented x3. Mood and affect normal. EXTREMITIES: Left leg is in a brace. INVESTIGATIONS: Hemoglobin 10.7, ASSESSMENT: -Left knee quadriceps tendon repair and medial retinacular tear repair with her left knee and leg in a brace. -Obesity body mass index of 33.9. -Essential hypertension. -Primary osteoarthritis. -Anxiety not otherwise specified. -Chronic constipation, idiopathic. PLAN: Continue discontinue Senokot S, mobilization per orthopedics. Plan of care discussed at the bedside with the patient she is in agreement. We will follow closely. 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 Noel
[2017-09-17] MEDS: TEMAZEPAM 30 MG CAP PO SCH (20:48)
[2017-09-17] MEDS: BENZTROPINE MESYLATE 0.5 MG TAB PO SCH (20:49)
[2017-09-17] MEDS: AMITRIPTYLINE HCL 25 MG TAB PO SCH (20:49)
[2017-09-18] MEDS: clonazePAM 1 MG TAB PO SCH (08:20)
[2017-09-18] MEDS: traMADol 50 MG TAB PO SCH (08:20)
[2017-09-18] MEDS: CHOLECALCIFEROL 1,000 UNIT TAB PO SCH (08:21)
[2017-09-18] MEDS: CEPHALEXIN 500 MG CAP PO SCH (08:21)
[2017-09-18] MEDS: RIVAROXABAN 10 MG TAB PO SCH (08:21)
[2017-09-18] MEDS: POLYETHYLENE GLYCOL 3350 17 GM POWD.PACK PO SCH (08:21)
[2017-09-18] MEDS: METOPROLOL SUCCINATE (ER) 50 MG TAB.ER.24H PO SCH (08:22)
[2017-09-18] MEDS: MULTIVITAMINS, THERA 1 EACH TAB PO SCH (08:22)
[2017-09-18] MEDS: risperiDONE 1 MG TAB PO SCH (08:22)
[2017-09-18 12:08] LABS: Glucose,Whole Blood 101 mg/dL (75-99)
[2017-09-18 15:24] VITALS: BP 158/80; PULSE 96; TEMP 97.6
--- NOTE | 2017-09-18 20:00 | PN ---
PROGRESS NOTE DATE OF SERVICE: 09/18/2017 ATTENDING NOTE: This patient was seen and examined by me. I discussed the case with the nurse practitioner Ms. Dudley. The patient is lying in bed, comfortable, tolerating a diet. No new issues. On examination, afebrile, pulse 95, respiration 16, blood pressure 158/80, pulse ox 97% on room air. Lungs are clear. CARDIOVASCULAR: First and second sounds normal. PSYCH: Awake. Answering questions. INVESTIGATIONS: No blood work from today. ASSESSMENT: Left knee quadriceps tendon repair. PLAN: Other medication and treatment plan noted, to continue. MMODL / IJN: [id number] /
--- NOTE | 2017-09-18 20:02 | P.PN ---
Progress Note - Text Progress Note Date: 09/18/17 DATE OF SERVICE: 09/18/2017 PRESENTING COMPLAINT: Quadriceps repair of the left leg. Medical management HISTORY OF PRESENT ILLNESS: 61-year-old female who is status post left knee open quadriceps tendon repair and medial retinacular repair. . INTERVAL HISTORY: 09/18/2017: In bed appears comfortable. No acute overnight events slept well. Mild complaints of abdominal cramping and bloating. Up with assistance, tolerating her diet eating between 50 and 75% of her meals, continue nonweightbearing status of the left lower extremity and using a knee immobilizer. 09/17/2017: Patient lying in bed appears comfortable. No acute overnight events, continues to complain of some abdominal cramping and bloating. Asking for more laxatives. Up with assistance, tolerating her diet eating between 50 and 75% of her meals, continue nonweightbearing status of the left lower extremity and use the knee immobilizer. 09/16/2017: Patient lying in bed appears comfortable. Afebrile, vital signs stable, Complaining of gas and some abdominal cramping. Up with assistance tolerating her diet, last BM prior to admission. REVIEW OF SYSTEMS: Done for constitutional ,cardiovascular, GI, pulmonary with relevant findings as above. CURRENT MEDICATIONS Tylenol, [place], Elavil, Cogentin, Keflex, cholecalciferol, clonazepam, Luvox, Dilaudid, ibuprofen, milk of magnesia, Toprol-XL, Theragran vitamins, Narcan, Zofran, MiraLAX, Risperdal, Xarelto Agueda Ultram. PHYSICAL EXAM VITAL SIGNS: Temperature 97.8, pulse 92, respirations 16, blood pressure 160/81, oxygen saturation 97% on room air GENERAL APPEARANCE: Lying in bed, not in distress. HEENT: Normocephalic, Pupils equal. Conjunctiva normal. JVD not raised. Mass not palpable.: RESPIRATORY: Respiratory effort normal. Lungs clear to auscultation. CARDIOVASCULAR: First and second sounds normal. No edema. ABDOMEN: Soft. Liver and spleen not palpable. No tenderness. No mass palpable. PSYCHIATRY: Alert and oriented x3. Mood and affect normal. EXTREMITIES: Left leg is in a brace. INVESTIGATIONS: Accu-Cheks noted ASSESSMENT: -Left knee quadriceps tendon repair and medial retinacular tear repair with her left knee and leg in a brace. -Obesity body mass index of 33.9. -Essential hypertension. -Primary osteoarthritis. -Anxiety not otherwise specified. -Chronic constipation, idiopathic. PLAN: Continue discontinue Senokot S, mobilization per orthopedics. Patient is medically stable for discharge to rehabilitation Center. 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 Noel
== END 2017-09-18 16:26 | DRG 502 ==
LOC: 2ORMAIN 14:12 → 3SUR 19:11
PROVIDERS: ADMIT Orthopaedic Surgery; ATTEND Orthopaedic Surgery
PROC: 0LQM0ZZ Repair Left Upper Leg Tendon, Open Approach (ICD-10-PCS; principal; 2017-09-13 16:45)
DX: S76.112A Strain of left quadriceps muscle, fascia and tendon, initial encounter (principal); E66.9 Obesity, unspecified; F32.9 Major depressive disorder, single episode, unspecified; F41.9 Anxiety disorder, unspecified; I10 Essential (primary) hypertension; K59.09 Other constipation; M19.91 Primary osteoarthritis, unspecified site; Z79.899 Other long term (current) drug therapy; Z96.653 Presence of artificial knee joint, bilateral; Z79.1 Long term (current) use of non-steroidal anti-inflammatories (NSAID); Z79.82 Long term (current) use of aspirin; Z88.5 Allergy status to narcotic agent; R19.7 Diarrhea, unspecified
CPT/HCPCS: 71045; 80048; 81003; 85025; 87086; 94760

== ENCOUNTER 2017-09-21 12:28 | Emergency (ER) | payer OTHER ==
[2017-09-21] MEDS ORDERED: SODIUM CHLORIDE 0.9% 500 ML IV STA (12:55)
[2017-09-21] MEDS ORDERED: SODIUM CHLORIDE 0.9% 1,000 ML IV STA (12:55)
--- NOTE | 2017-09-21 13:27 | ED ---
General Adult HPI - General Source: patient, EMS, RN notes reviewed, old records reviewed Mode of arrival: EMS Limitations: altered mental status <Brigido Quezada - Last Filed: 09/21/17 14:26> <Ar Lindquist - Last Filed: 09/21/17 23:54> <Brigido Dobbs - Last Filed: 09/22/17 06:22> - General Chief complaint: Altered Mental Status Stated complaint: Altered Mental Status Time Seen by Provider: 09/21/17 12:32 - History of Present Illness Initial comments: This is a 61-year-old female to the ER for evaluation regarding altered mental status. Patient is brought in by EMS for evaluation. Patient unable to give history, recent cares prolonged bizarre story about going to nightclub coming back with another man not her and being discharged. Got tired (Brigido Quezada) - Related Data Home Medications Medication Instructions Recorded Confirmed Amitriptyline HCl [Elavil] 25 mg PO HS 07/25/17 09/21/17 Benztropine Mesylate [Cogentin] 0.5 mg PO HS 07/25/17 09/21/17 Cholecalciferol [Vitamin D3] 1,000 units PO DAILY 07/25/17 09/21/17 Ibuprofen 800 mg PO Q8H PRN 07/25/17 09/21/17 Metoprolol Succinate (ER) [Toprol 50 mg PO QAM 07/25/17 09/21/17 XL] Multivitamins, Thera [Multivitamin 1 tab PO DAILY 07/25/17 09/21/17 (formulary)] Triazolam [Halcion] 0.5 mg PO HS 07/25/17 09/21/17 clonazePAM [Clonazepam] 2 mg PO BID 07/25/17 09/21/17 fluvoxaMINE MALEATE [Fluvoxamine 100 mg PO QAM 07/25/17 09/21/17 Maleate] fluvoxaMINE MALEATE [Fluvoxamine 200 mg PO HS 07/25/17 09/21/17 Maleate] risperiDONE [RisperDAL] 1 mg PO BID 07/25/17 09/21/17 Sennosides-Docusate Sodium 2 tab PO HS 09/13/17 09/21/17 [Senokot-S] Ascorbic Acid [Vitamin C] 500 mg PO DAILY 09/21/17 09/21/17 Previous Rx's Medication Instructions Recorded Rivaroxaban [Xarelto] 10 mg PO DAILY #28 tab 09/17/17 traMADol HCl [Ultram] 50 mg PO Q6H PRN #40 tab 09/17/17 Allergies Allergy/AdvReac Type Severity Reaction Status Date / Time acetaminophen [From [place]] Allergy Hallucinati Verified 09/21/17 13:26 ons hydrocodone [From [place]] Allergy Hallucinati Verified 09/21/17 13:26 ons Review of Systems ROS Other: All systems not noted in ROS Statement are negative. <Brigido Quezada - Last Filed: 09/21/17 14:26> ROS Other: All systems not noted in ROS Statement are negative. <Ar Lindquist - Last Filed: 09/21/17 23:54> ROS Other: All systems not noted in ROS Statement are negative. <Brigido Dobbs - Last Filed: 09/22/17 06:22> ROS Statement: Those systems with pertinent positive or pertinent negative responses have been documented in the HPI. Past Medical History Past Medical History: Hypertension, Osteoarthritis (OA) Additional Past Medical History / Comment(s): uses walker, left leg in knee immobilizer. Recent injury to left knee states "knee gave out", narrow esophagus History of Any Multi-Drug Resistant Organisms: None Reported Past Surgical History: Joint Replacement Additional Past Surgical History / Comment(s): left knee replacement, and repair , right knee replacement and revision, ruptured ovarian cyst repair Past Anesthesia/Blood Transfusion Reactions: No Reported Reaction Additional Past Anesthesia/Blood Transfusion Reaction / Comment(s): no problems with prior blood transfusion Past Psychological History: Anxiety Smoking Status: Never smoker Past Alcohol Use History: None Reported Past Drug Use History: None Reported - Past Family History Mother Family Medical History: No Reported History Father Family Medical History: Cancer Additional Family Medical History / Comment(s): jaw and pancreatic CA <Brigido Quezada - Last Filed: 09/21/17 14:26> General Exam Limitations: altered mental status General appearance: alert, in no apparent distress Head exam: Present: atraumatic, normocephalic, normal inspection Eye exam: Present: normal appearance, PERRL, EOMI. Absent: scleral icterus, conjunctival injection, periorbital swelling ENT exam: Present: normal exam, mucous membranes moist Neck exam: Present: normal inspection. Absent: tenderness, meningismus, lymphadenopathy Respiratory exam: Present: normal lung sounds bilaterally. Absent: respiratory distress, wheezes, rales, rhonchi, stridor Cardiovascular Exam: Present: regular rate, normal rhythm, normal heart sounds. Absent: systolic murmur, diastolic murmur, rubs, gallop, clicks GI/Abdominal exam: Present: soft, normal bowel sounds. Absent: distended, tenderness, guarding, rebound, rigid Extremities exam: Present: normal inspection, full ROM, normal capillary refill. Absent: tenderness, pedal edema, joint swelling, calf tenderness Back exam: Present: normal inspection Neurological exam: Present: alert, oriented X3, CN II-XII intact Psychiatric exam: Present: normal affect, normal mood Skin exam: Present: warm, dry, intact, normal color. Absent: rash <Brigido Quezada - Last Filed: 09/21/17 14:26> Course <Brigido Quezada - Last Filed: 09/21/17 14:26> <Ar Lindquist - Last Filed: 09/21/17 23:54> <Brigido Dobbs - Last Filed: 09/22/17 06:22> Vital Signs 09/21/17 09/21/17 09/21/17 12:31 13:44 17:45 Temperature 99.0 F 98.3 F Pulse Rate 104 H 89 81 Respiratory 19 20 20 Rate Blood Pressure 166/88 166/77 158/62 O2 Sat by Pulse 100 99 99 Oximetry 09/21/17 09/22/17 21:00 03:21 Temperature 98.6 F Pulse Rate 75 95 Respiratory 20 16 Rate Blood Pressure 159/86 163/82 O2 Sat by Pulse 99 98 Oximetry - Reevaluation(s) Reevaluation #1: 09/21/17 13:27 Patient unable to give accurate history secondary to delusional thinking ( Brigido Quezada) Reevaluation #2: 09/21/17 14:26 A sugar medically clear for psychiatric evaluation (Brigido Quezada) Reevaluation #3: 09/21/17 23:54 Patient reevaluated after sign out, she was medically cleared awaiting EPS evaluation. Patient is acutely psychotic and paranoid. She has been petitioned , I completed a cert. Currently awaiting final disposition. Patient's care will be signed out to Dr. Dobbs at shift change. (Ar Lindquist) EKG Findings - EKG Comments: EKG Findings:: EKG shows normal sinus rhythm rate of 95, TX 164, QRS 72, QTC 424 <Brigido Quezada - Last Filed: 09/21/17 14:26> Medical Decision Making - Lab Data Result diagrams: 09/21/17 13:31 09/21/17 13:31 <Brigido Quezada - Last Filed: 09/21/17 14:26> - Lab Data Result diagrams: 09/21/17 13:31 09/21/17 13:31 <Ar Lindquist - Last Filed: 09/21/17 23:54> - Lab Data Result diagrams: 09/21/17 13:31 09/21/17 13:31 <Brigido Dobbs - Last Filed: 09/22/17 06:22> - Lab Data Lab Results 09/21/17 09/21/17 09/21/17 Range/Units 13:31 13:31 13:31 WBC 11.5 H (3.8-10.6) k/uL RBC 5.03 (3.80-5.40) m/uL Hgb 11.4 (11.4-16.0) gm/dL Hct 38.6 (34.0-46.0) % MCV 76.9 L (80.0-100.0) fL MCH 22.7 L (25.0-35.0) pg MCHC 29.5 L (31.0-37.0) g/dL RDW 16.7 H (11.5-15.5) % Plt Count 314 (150-450) k/uL Neutrophils % 75 % Lymphocytes % 14 % Monocytes % 7 % Eosinophils % 1 % Basophils % 0 % Neutrophils # 8.6 H (1.3-7.7) k/uL Lymphocytes # 1.7 (1.0-4.8) k/uL Monocytes # 0.8 (0-1.0) k/uL Eosinophils # 0.1 (0-0.7) k/uL Basophils # 0.1 (0-0.2) k/uL Hypochromasia Marked Anisocytosis Slight Microcytosis Slight PT (9.0-12.0) sec INR (<1.2) APTT (22.0-30.0) sec Sodium 143 (137-145) mmol/L Potassium 4.1 (3.5-5.1) mmol/L Chloride 109 H (98-107) mmol/L Carbon Dioxide 24 (22-30) mmol/L Anion Gap 10 mmol/L BUN 4 L (7-17) mg/dL Creatinine 0.73 (0.52-1.04) mg/dL Est GFR (MDRD) Af Amer >60 (>60 ml/min/1.73 sqM) Est GFR (MDRD) Non-Af >60 (>60 ml/min/1.73 sqM) Glucose 99 (74-99) mg/dL Plasma Lactic Acid Eugene (0.7-2.0) mmol/L Calcium 9.7 (8.4-10.2) mg/dL Phosphorus 4.2 (2.5-4.5) mg/dL Magnesium 2.2 (1.6-2.3) mg/dL Total Bilirubin 0.5 (0.2-1.3) mg/dL AST 35 (14-36) U/L ALT 36 (9-52) U/L Alkaline Phosphatase 76 (38-126) U/L Total Creatine Kinase 70 (30-135) U/L CK-MB (CK-2) <0.2 (0.0-2.4) ng/mL CK-MB (CK-2) Rel Index Troponin I <0.012 (0.000-0.034) ng/mL Total Protein 6.7 (6.3-8.2) g/dL Albumin 3.7 (3.5-5.0) g/dL TSH 1.260 (0.465-4.680) mIU/L Urine Color Urine Appearance (Clear) Urine pH (5.0-8.0) Ur Specific [place] (1.001-1.035) Urine Protein (Negative) Urine Glucose (UA) (Negative) Urine Ketones (Negative) Urine Blood (Negative) Urine Nitrite (Negative) Urine Bilirubin (Negative) Urine Urobilinogen (<2.0) mg/dL Ur Leukocyte Esterase (Negative) Urine RBC (0-5) /hpf Urine WBC (0-5) /hpf Urine Mucus (None) /hpf Salicylates <1.0 mg/dL Urine Opiates Screen (NotDetected) Ur Oxycodone Screen (NotDetected) Urine Methadone Screen (NotDetected) Ur Propoxyphene Screen (NotDetected) Acetaminophen <10.0 ug/mL Ur Barbiturates Screen (NotDetected) U Tricyclic Antidepress (NotDetected) Ur Phencyclidine Scrn (NotDetected) Ur Amphetamines Screen (NotDetected) U Methamphetamines Scrn (NotDetected) U Benzodiazepines Scrn (NotDetected) Urine Cocaine Screen (NotDetected) U Marijuana (THC) Screen (NotDetected) Serum Alcohol <10 mg/dL 09/21/17 09/21/17 09/21/17 Range/Units 13:31 13:31 13:40 WBC (3.8-10.6) k/uL RBC (3.80-5.40) m/uL Hgb (11.4-16.0) gm/dL Hct (34.0-46.0) % MCV (80.0-100.0) fL MCH (25.0-35.0) pg MCHC (31.0-37.0) g/dL RDW (11.5-15.5) % Plt Count (150-450) k/uL Neutrophils % % Lymphocytes % % Monocytes % % Eosinophils % % Basophils % % Neutrophils # (1.3-7.7) k/uL Lymphocytes # (1.0-4.8) k/uL Monocytes # (0-1.0) k/uL Eosinophils # (0-0.7) k/uL Basophils # (0-0.2) k/uL Hypochromasia Anisocytosis Microcytosis PT 11.6 (9.0-12.0) sec INR 1.2 H (<1.2) APTT 23.9 (22.0-30.0) sec Sodium (137-145) mmol/L Potassium (3.5-5.1) mmol/L Chloride (98-107) mmol/L Carbon Dioxide (22-30) mmol/L Anion Gap mmol/L BUN (7-17) mg/dL Creatinine (0.52-1.04) mg/dL Est GFR (MDRD) Af Amer (>60 ml/min/1.73 sqM) Est GFR (MDRD) Non-Af (>60 ml/min/1.73 sqM) Glucose (74-99) mg/dL Plasma Lactic Acid Eugene 1.1 (0.7-2.0) mmol/L Calcium (8.4-10.2) mg/dL Phosphorus (2.5-4.5) mg/dL Magnesium (1.6-2.3) mg/dL Total Bilirubin (0.2-1.3) mg/dL AST (14-36) U/L ALT (9-52) U/L Alkaline Phosphatase (38-126) U/L Total Creatine Kinase (30-135) U/L CK-MB (CK-2) (0.0-2.4) ng/mL CK-MB (CK-2) Rel Index Troponin I (0.000-0.034) ng/mL Total Protein (6.3-8.2) g/dL Albumin (3.5-5.0) g/dL TSH (0.465-4.680) mIU/L Urine Color Yellow Urine Appearance Cloudy H (Clear) Urine pH 6.5 (5.0-8.0) Ur Specific [place] 1.013 (1.001-1.035) Urine Protein Trace H (Negative) Urine Glucose (UA) Negative (Negative) Urine Ketones 1+ H (Negative) Urine Blood Negative (Negative) Urine Nitrite Negative (Negative) Urine Bilirubin Negative (Negative) Urine Urobilinogen <2.0 (<2.0) mg/dL Ur Leukocyte Esterase Negative (Negative) Urine RBC 2 (0-5) /hpf Urine WBC 1 (0-5) /hpf Urine Mucus Many H (None) /hpf Salicylates mg/dL Urine Opiates Screen Not Detected (NotDetected) Ur Oxycodone Screen Not Detected (NotDetected) Urine Methadone Screen Not Detected (NotDetected) Ur Propoxyphene Screen Not Detected (NotDetected) Acetaminophen ug/mL Ur Barbiturates Screen Not Detected (NotDetected) U Tricyclic Antidepress Detected H (NotDetected) Ur Phencyclidine Scrn Not Detected (NotDetected) Ur Amphetamines Screen Not Detected (NotDetected) U Methamphetamines Scrn Not Detected (NotDetected) U Benzodiazepines Scrn Detected H (NotDetected) Urine Cocaine Screen Not Detected (NotDetected) U Marijuana (THC) Screen Not Detected (NotDetected) Serum Alcohol mg/dL Disposition <Brigido Queazda - Last Filed: 09/21/17 14:26> <Ar Lindquist - Last Filed: 09/21/17 23:54> Time of Disposition: 06:22 <Brigido Dobbs - Last Filed: 09/22/17 06:22> Clinical Impression: Acute psychosis Disposition: TRANSFER TO PSYCH HOSP/UNIT Referrals: Jose Enrique Ordaz MD [Primary Care Provider] - 1-2 days
[2017-09-21 13:51] LABS: Anisocytosis Slight; Basophils # (A) 0.1 k/uL (0-0.2); Basophils % (A) 0 %; Eosinophils # (A) 0.1 k/uL (0-0.7); Eosinophils % (A) 1 %; HCT 38.6 % (34.0-46.0); HGB 11.4 gm/dL (11.4-16.0); Hypochromasia Marked; Lymphocytes # (A) 1.7 k/uL (1.0-4.8); Lymphocytes % (A) 14 %; MCH 22.7 pg (25.0-35.0); MCHC 29.5 g/dL (31.0-37.0); MCV 76.9 fL (80.0-100.0); Mean Platelet Volume 7.4; Microcytosis Slight; Monocytes # (A) 0.8 k/uL (0-1.0); Monocytes % (A) 7 %; Neutrophils # (A) 8.6 k/uL (1.3-7.7); Neutrophils % (A) 75 %; Platelet Count 314 k/uL (150-450); RBC 5.03 m/uL (3.80-5.40); RDW 16.7 % (11.5-15.5); WBC 11.5 k/uL (3.8-10.6)
[2017-09-21 14:09] LABS: Appearance,Urine Cloudy (Clear); Bilirubin,Urine Negative (Negative); Blood,Urine Negative (Negative); Color,Urine Yellow; Glucose,Urine (UA) Negative (Negative); Ketones,Urine 1+ (Negative); Leukocyte Esterase,Urine Negative (Negative); Mucus,Urine Many /hpf; Nitrite,Urine Negative (Negative); PH, Urine 6.5 (5.0-8.0); Protein,Urine Trace (Negative); RBC,Urine 2 /hpf (0-5); Specific Gravity,Urine 1.013 (1.001-1.035); Urobilinogen,Urine <2.0 mg/dL (<2.0); WBC,Urine 1 /hpf (0-5)
[2017-09-21 14:10] LABS: INR 1.2 (<1.2); Partial Thromboplastin Time 23.9 sec (22.0-30.0); Prothrombin Time 11.6 sec (9.0-12.0)
[2017-09-21 14:13] LABS: ALT 36 U/L (9-52); AST 35 U/L (14-36); Acetaminophen <10.0 ug/mL; Albumin 3.7 g/dL (3.5-5.0); Alcohol <10 mg/dL; Alkaline Phosphatase 76 U/L (38-126); Anion Gap 10 mmol/L; Blood Urea Nitrogen 4 mg/dL (7-17); Calcium 9.7 mg/dL (8.4-10.2); Carbon Dioxide 24 mmol/L (22-30); Chloride 109 mmol/L (98-107); Glucose 99 mg/dL (74-99); Magnesium 2.2 mg/dL (1.6-2.3); Phosphorous 4.2 mg/dL (2.5-4.5); Potassium 4.1 mmol/L (3.5-5.1); Salicylate <1.0 mg/dL; Sodium 143 mmol/L (137-145); Total Bilirubin 0.5 mg/dL (0.2-1.3); Total Protein 6.7 g/dL (6.3-8.2)
--- NOTE | 2017-09-21 14:15 | CT ---
EXAMINATION TYPE: CT brain wo con DATE OF EXAM: 09/21/2017 COMPARISON: NONE HISTORY: 61-year-old female with weakness, confusion, altered mental status TECHNIQUE: Examination was done in axial plane without intravenous contrast. Coronal and sagittal r econstructions performed. CT DLP: 1090.4 mGycm Automated exposure control for dose reduction was used. FINDINGS: There is no evidence of acute intracranial hemorrhage, acute ischemic changes, mass, mass-effect, or extra-axial fluid collection. There is no effacement of cerebral sulci or basal subarachnoid cister ns. There is no hydrocephalus. There is no midline shift. Robles-white matter distinction is preserv ed. Mild generalized cerebral cortical atrophy. Minimal patchy deep white matter hypodensities suggest mi ld burden of chronic small vessel ischemic disease. There is frothy opacification of the left sphenoid sinus. Mastoid air cells well pneumatized. Orbits and globes are intact. IMPRESSION: 1. Mild cerebral atrophy. No acute intracranial abnormality seen. 2. Frothy opacification left sphenoid sinus can be seen with acute sinusitis. Clinically correlate.
[2017-09-21 14:20] LABS: Creatine Kinase 70 U/L (30-135)
[2017-09-21 14:27] LABS: Amphetamine Screen,Urine Not Detected (NotDetected); Barbiturate Screen,Urine Not Detected (NotDetected); Benzodiazepines Screen,Urine Detected (NotDetected); Cocaine Screen,Urine Not Detected (NotDetected); Methadone Screen, Urine Not Detected (NotDetected); Opiate Screen,Urine Not Detected (NotDetected); Oxycodone Screen, Urine Not Detected (NotDetected); Phencyclidine Screen,Urine Not Detected (NotDetected); Tricyclic Antidepressant,Urine Detected (NotDetected); Urn Cannabinoid Scrn Not Detected (NotDetected)
[2017-09-21 14:31] LABS: Creatine Kinase MB <0.2 ng/mL (0.0-2.4); Troponin I <0.012 ng/mL (0.000-0.034)
[2017-09-22 03:22] VITALS: TEMP 98.6
[2017-09-22 08:47] VITALS: BP 155/94; PULSE 112; RESP 18
== END 2017-09-22 09:14 ==
LOC: EC 12:28
DX: F23 Brief psychotic disorder (principal); I10 Essential (primary) hypertension; F41.9 Anxiety disorder, unspecified; Z88.6 Allergy status to analgesic agent; Z88.5 Allergy status to narcotic agent; Z79.899 Other long term (current) drug therapy
CPT/HCPCS: 36415; 70450; 80053; 80306; 80320; 81001; 82550; 82553; 83520; 83605; 83735; 84100; 84443; 84484; 85025; 85610; 85730; 87086; 93005; 96360; 99285

== ENCOUNTER 2017-10-22 13:11 | Inpatient (IN) | payer OTHER ==
[2017-10-19 11:24] VITALS: BMI 29.3
--- NOTE | 2017-10-21 13:01 | HP ---
HISTORY AND PHYSICAL REASON FOR ADMISSION: Surgery scheduled for 10/22/2017 Vicky Murray is a 61-year-old patient who had previously undergone a total knee arthroplasty on the left side in July 30, 2017. She subsequently had a retinacular tear that was repaired and re-tore that and was subsequently repaired again. She was seen in the office recently and was noted to have a re-rupture or re- tearing of the retinaculum/capsule of the left knee. I recommended repair of this recurrent tear. I discussed the procedure, risks, complications, and recovery in simple layman's terms with the patient including the possibility of encountering an irreparable tear. Given the multiple times that has occurred. She understands this and wished to proceed. Consent was obtained for the recommended proposed procedure. PAST MEDICAL HISTORY: Depression, hypertension. PAST SURGICAL HISTORY: Right total knee arthroplasty with revision, left total knee arthroplasty with retinacular capsular and quadriceps repair. MEDICATIONS: Amitriptyline, clonazepam, Benzamine, fluoxetine, Halcion, metoprolol, , tramadol. ALLERGIES: None reported. SOCIAL HISTORY: Patient denies current tobacco use. PHYSICAL EXAMINATION: Evaluation of left knee, there is evidence of well-healed anterior incision. Range of motion is -35 to 100. Significant quadriceps weakness. There is obvious defect with medial retinaculum extending all the way up into the area of the quadriceps tendon. The hamstrings are stable. The collateral ligaments appear stable. RADIOGRAPHS: Radiographs of the left knee revealed stable appearing total knee arthroplasty as well as a lateralization abnormally of the patellar area. IMPRESSION: 1. Left knee recurrent medial retinacular/capsular tear. 2. History of left total knee arthroplasty. 3. Depression. 4. Hypertension. PLAN: Left knee medial retinacular/capsular repair. Surgery scheduled for 10/22/17. MMODL / IJN: [id number] /
[~2017-10-22 13:11] MED LIST changes: -HYDROmorphone 0.5 MG/0.5 ML SYRINGE IVP PRN; -LIDOCAINE 1% 20 ML VIAL (10MG/ML) FOR IV START INTRADERMA PRN; +MORPHINE SULFATE 4 MG/ML SYRINGE IV PRN
[2017-10-22] MEDS: LACTATED RINGERS 1,000 ML IV SCH (13:42)
[2017-10-22] MEDS ORDERED: SUCCINYLCHOLINE CHLORIDE 100 MG/5 ML SYR IV ONE (15:24)
[2017-10-22] MEDS ORDERED: LIDOCAINE 1% INJ 10MG/ML (20 ML MDV) ONE (15:24)
[2017-10-22] MEDS ORDERED: PROPOFOL 10 MG/ML 20 ML VIAL IV ONE (15:24)
[2017-10-22] MEDS ORDERED: ePHEDrine SULFATE/0.9% NACL/PF 50 MG/5 ML SYRINGE IV ONE (15:24)
[2017-10-22] MEDS ORDERED: WATER FOR INJECTION, STERILE 10 ML VIAL IV ONE (15:24)
[2017-10-22] MEDS ORDERED: fentaNYL (PF) 50 MCG/ML 2 ML AMP ONE (15:24)
[2017-10-22] MEDS ORDERED: MIDAZOLAM 2 MG/2 ML VIAL ONE (15:24)
[2017-10-22] MEDS ORDERED: ceFAZolin 1,000 MG in SODIUM CHLORIDE 0.9% 1,000 ML IRRIGATION ONE (15:51)
[2017-10-22] MEDS ORDERED: LACTATED RINGERS 1,000 ML IV ONE (16:18)
[2017-10-22] MEDS ORDERED: BACITRACIN 500 UNIT/GM OINT 28.4 GM TUBE TOPICAL ONE (16:35)
[2017-10-22] MEDS ORDERED: NALOXONE 0.4 MG/ML 1 ML VIAL IV PRN (17:13)
[2017-10-22] MEDS ORDERED: ONDANSETRON 4 MG/2 ML VIAL IVP PRN (17:13)
--- NOTE | 2017-10-22 17:17 | P.OP ---
Date of Procedure: 10/22/17 Preoperative Diagnosis: Left knee medial retinacular/capsular tear Postoperative Diagnosis: Left knee medial retinacular/capsular tear Procedure(s) Performed: Left knee arthrotomy with repair medial capsular tear Implants: None Anesthesia: SEBLE Surgeon: Clay Cheney Ip Attorney #1: Contreras Mcadams Estimated Blood Loss (ml): 25 Pathology: none sent Condition: stable Disposition: PACU Indications for Procedure: 61-year-old patient who was seen with a recurrent left knee medial capsular tear with history of previous total knee arthroplasty history of previous repairs 2. I reviewed the complexly of the situation with her and her family. I recommended repair. I discussed the procedure, risks, complications and recovery. They were agreeable and consent was obtained. Operative Findings: see description of procedure Description of Procedure: The patient was taken to the operative suite. The patient underwent a general anesthetic by the primary anesthesia. She received preoperative IV antibiotics. A well-padded tourniquet was placed proximal left lower extremity. The left lower extremity was now prepped and draped in the normal sterile orthopedic fashion. The extremity was elevated and tourniquet insufflated to 350. I now made an incision over the previous cicatrix sharply through skin. Once I would dissected subcutaneously we immediately a tear of the medial capsule. We meticulously moved all residual sutures that were present. The wound was irrigated with pulse lavage mechanical irrigation. We debrided some nonviable tissue. The total knee arthroplasty appeared stable. There was evidence for any infective process clinically. We now meticulously began preparing that medial capsule utilizing combination of Ethibond and #3 Vicryl. Once that was completed I took the knee to about 90 of flexion with good stability of the repair site. No meticulously began repairing the subcutaneous tissues utilizing 2-0 Vicryl. I now repaired the skin with skin sharyn. We applied an about ointment and sterile dressings. Sterile web roll was applied. Tourniquet was released and immediate capillary refill the entire extremity noted. Given the noncompliance of the patient I placed her in a long leg cast with the knee fully extended and the ankle in neutral position. I created a window to check an incision anteriorly. This was secured with Luis Antonio bandage. The patient was awakened, transferred to bed and recovery stable condition. Kristopher AGUIRRE assisted with the procedure.
[2017-10-22] MEDS ORDERED: clonazePAM 1 MG TAB PO SCH (21:30)
[2017-10-22] MEDS: TEMAZEPAM 30 MG CAP PO SCH (22:11)
[2017-10-22] MEDS: SENNOSIDES-DOCUSATE SODIUM 1 EACH TAB PO SCH (22:16)
[2017-10-22] MEDS: traMADol 50 MG TAB PO PRN (22:18)
[2017-10-22] MEDS: risperiDONE 1 MG TAB PO SCH (23:01)
[2017-10-22] MEDS: BENZTROPINE MESYLATE 0.5 MG TAB PO SCH (23:01)
[2017-10-22] MEDS: AMITRIPTYLINE HCL 25 MG TAB PO SCH (23:01)
--- NOTE | 2017-10-22 23:53 | CONS ---
CONSULTATION REASON FOR CONSULTATION: Advice regarding hypertension and other medical issues, requested by Dr. Cheney. HISTORY OF PRESENT ILLNESS: This 61-year-old woman with past medical history of hypertension, DJD, history of anxiety, being followed by Dr. Lilly Martinez in the outpatient setting, was admitted for left knee arthrotomy with repair of medial capsular tear by Dr. Cheney. There is no history of any chest pain, no history of palpitations, no history of headache, loss of consciousness, seizures. Patient complains of some burning of the left leg. PAST MEDICAL HISTORY: 1. Hypertension. 2. DJD. 3. History of anxiety. MEDICATIONS: 1. Ultram 50 mg q.6 p.r.n. 2. Clonazepam 2 mg p.o. b.i.d. 3. Risperdal 1 mg p.o. b.i.d. 4. Fluvoxamine maleate 100 mg each morning and 200 mg at bedtime. 5. Halcion 0.5 mg at bedtime. 6. Multivitamin 1 p.o. daily. 7. Toprol XL 50 mg each morning. 8. Vitamin D3 1000 daily. 9. Cogentin 0.5 mg at bedtime. 10.Elavil 25 mg at bedtime. ALLERGIES: NORCO, CODEINE. FAMILY HISTORY: History of jaw and pancreatic cancer. SOCIAL HISTORY: No history of smoking. No history of alcohol intake. REVIEW OF SYSTEMS: ENT: No diminished hearing. No diminished vision. CARDIOVASCULAR SYSTEM: As mentioned earlier. RESPIRATORY SYSTEM: As mentioned earlier. GI: No nausea, vomiting. : No dysuria or retention. NERVOUS SYSTEM: No numbness, weakness. ALLERGY/IMMUNOLOGY: No asthma, hayfever. MUSCULOSKELETAL: As mentioned earlier. HEMATOLOGY/ONCOLOGY: No history of anemia. ENDOCRINE: No history of diabetes, hypothyroidism. CONSTITUTIONAL: As mentioned earlier. DERMATOLOGY: Negative. RHEUMATOLOGY: Negative. PSYCHIATRY: As mentioned earlier. PHYSICAL EXAMINATION: Patient alert and oriented x3. Pulse is 85, blood pressure 125/67, respiration 16, temperature 98.7, pulse ox 94% on 2 L. HEENT: Conjunctivae normal. Oral mucosa moist. NECK: No jugular venous distention. No carotid bruit. No lymph node enlargement. CARDIOVASCULAR SYSTEM: S1, S2 muffled. No S3. No S4. RESPIRATORY SYSTEM: Breath sounds diminished at the bases. A few scattered rhonchi. No crackles. ABDOMEN: Soft, nontender. No mass palpable. LEGS: Status post surgery on the left knee. NERVOUS SYSTEM: Higher functions as mentioned earlier. Moves all 4 limbs. No focal motor or sensory deficit. LYMPHATICS: No lymph node palpable in neck, axillae or groin. SKIN: No ulcer, rash, bleeding. ASSESSMENT: 1. Status post left knee arthrotomy with repair of medial capsular tear. 2. Hypertension. 3. History of degenerative joint disease. 4. History of anxiety. RECOMMENDATIONS AND DISCUSSION: In this 61-year-old woman who presented with multiple complex medical issues, we will monitor the patient closely, continue the current medications, continue with symptomatic treatment. I recommend resuming the home medications and DVT prophylaxis. Otherwise, incentive spirometry. Pain management. The patient is getting too confused. The narcotic may be adjusted. Otherwise we will follow the patient closely with you. Thank you, Dr. Cheney, for letting us participate in the care of this patient. MMODL / IJN: [id number] /
[2017-10-23] MEDS: LACTATED RINGERS 1,000 ML IV SCH ×2 (01:57→22:01)
[2017-10-23] MEDS: ceFAZolin IN SWFI 2 GM/20 ML SYRINGE IVP SCH ×2 (01:57→09:51)
[2017-10-23] MEDS: clonazePAM 1 MG TAB PO SCH ×2 (05:32→20:12)
[2017-10-23 07:37] LABS: Basophils % (A) 0 %; Eosinophils % (A) 0 %; HCT 31.7 % (34.0-46.0); Hypochromasia Marked; Lymphocytes % (A) 12 %; MCH 21.4 pg (25.0-35.0); MCHC 28.3 g/dL (31.0-37.0); MCV 75.7 fL (80.0-100.0); Mean Platelet Volume 6.4; Microcytosis Slight; Monocytes # (A) 0.7 k/uL (0-1.0); Monocytes % (A) 9 %; Neutrophils % (A) 76 %; Platelet Count 293 k/uL (150-450); RBC 4.19 m/uL (3.80-5.40); RDW 14.2 % (11.5-15.5); WBC 7.8 k/uL (3.8-10.6)
[2017-10-23] MEDS: traMADol 50 MG TAB PO PRN ×3 (08:53→23:06)
[2017-10-23] MEDS: RIVAROXABAN 10 MG TAB PO SCH (08:54)
[2017-10-23] MEDS: MULTIVITAMINS, THERA 1 EACH TAB PO SCH (08:54)
[2017-10-23] MEDS: CHOLECALCIFEROL 1,000 UNIT TAB PO SCH (08:54)
[2017-10-23] MEDS: METOPROLOL SUCCINATE (ER) 50 MG TAB.ER.24H PO SCH (08:54)
[2017-10-23] MEDS: risperiDONE 1 MG TAB PO SCH ×2 (08:54→20:12)
--- NOTE | 2017-10-23 14:49 | P.PN ---
Subjective Progress Note Date: 10/23/17 Principal diagnosis: Status post medial retinacular repair left knee Patient seen today resting in her hospital bed, she sleeping upon arrival. She is easily arousable. Her pain is controlled. She denies any headaches, lightheadedness, chest pain or shortness of breath. Objective - Vital Signs Vital signs: Vital Signs Temp 98.0 F 10/23/17 14:20 Pulse 84 10/23/17 14:20 Resp 14 10/23/17 14:20 BP 138/75 10/23/17 14:20 Pulse Ox 95 10/23/17 14:20 Intake & Output 10/22/17 10/23/17 10/23/17 18:59 06:59 18:59 Intake Total 1351 360 Output Total 425 1350 200 Balance 926 -1350 160 Weight 87.54 kg Intake: IV 1351 Oral 360 Output: Urine 400 1350 200 Uretheral ([place]) 200 Estimated Blood Loss 25 Other: Voiding Method Indwelling Catheter Indwelling Catheter - Exam Left lower extremity: Long-leg cast is in good position and condition. Her toes are warm to touch, she is able to wiggle toes no difficulty. Sensory exam to light touch at the toes is intact. - Labs CBC & Chem 7: 10/23/17 06:56 Labs: Abnormal Lab Results - Last 24 Hours (Table) 10/23/17 Range/Units 06:56 Hgb 9.0 L D (11.4-16.0) gm/dL Hct 31.7 L (34.0-46.0) % MCV 75.7 L (80.0-100.0) fL MCH 21.4 L (25.0-35.0) pg MCHC 28.3 L (31.0-37.0) g/dL Assessment and Plan Plan: Assessment: 1. Postop day 1 status post medial retinacular left knee Plan: 1. Pain control, low-dose oral medication 2. Nonweightbearing left lower extremity, walker which transferring to adhesive chair 3. GI and DVT prophylaxis, Xarelto 10 mg daily 4. Encourage incentive spirometer 5. Medical recommendations 6. Discharge planning: Await placement for subacute rehab Time with Patient: Less than 30
--- NOTE | 2017-10-23 15:11 | XR ---
EXAMINATION TYPE: XR chest 1V portable DATE OF EXAM: 10/23/2017 COMPARISON: Prior chest x-ray 09/14/2017 HISTORY: Rehabilitation placement TECHNIQUE: Single frontal view of the chest is obtained. FINDINGS: Strand-like densities in the lower lungs are stable and likely reflects scarring rather th an atelectasis. Cardiac mediastinal silhouette, pulmonary vascularity and christina are stable. No focal p neumonia, pneumothorax, or pleural effusion. There is evidence of old granulomatous disease. IMPRESSION: No acute process.
--- NOTE | 2017-10-23 15:54 | PN ---
PROGRESS NOTE DATE OF SERVICE: 10/23/2017 This 61-year-old woman who was admitted after left knee arthrotomy and repair of the medial capsular tear also had hypertension. Patient had also had extensive psychiatric history on multiple medications also. The patient appears to have very poor home support as the patient is complaining of significant pain and difficulty as well as significant weight on the left leg also. No chest pain. No palpitations. No shortness of breath. PHYSICAL EXAM: Alert and oriented times three. Pulse 82, blood pressure 130/66, respirations 16, temperature 97.1, pulse ox 98% on room air. HEENT is conjunctivae normal. Neck: No jugular venous distention. Cardiovascular: S1, S2 muffled. Respiratory: Breath sounds diminished in the bases. No rhonchi and no crackles. ABDOMEN: Soft, nontender. No mass palpable. Legs status post left knee surgery. Nervous system: Higher functions as mentioned earlier, moves all 4 limbs, no focal motor or sensory deficits. Lymphatics: No lymph nodes palpable in the neck, axillae or groin. Skin no ulcer, no rash. No bleeding. LABS: WBC 7.2, hemoglobin is 9. ASSESSMENT: 1. Status post left knee arthrotomy with repair of the medial capsular tear. 2. Gait dysfunction. 3. Severe left knee pain. 4. Hypertension. 5. Extensive psychiatric illness. 6. History of degenerative joint disease. 7. Poor social support. 8. History of anxiety. RECOMMENDATIONS AND DISCUSSION: In this 61-year-old woman who presented with multiple complex medical issues, at this time I recommend to continue current management and symptomatic treatment. This patient would qualify for inpatient hospitalization for more than 2 nights because of multiple complex medical issues as stated above. We will follow the patient closely with Orthopedic surgery. We will resume the multiple psych medications and continue to monitor pain management. DVT prophylaxis. Guarded prognosis. Further recommendations to follow. Patient on Xarelto. MMODL / IJN: [id number] /
[2017-10-23] MEDS: BENZTROPINE MESYLATE 0.5 MG TAB PO SCH (20:13)
[2017-10-23] MEDS: SENNOSIDES-DOCUSATE SODIUM 1 EACH TAB PO SCH (20:13)
[2017-10-23] MEDS: TEMAZEPAM 30 MG CAP PO SCH (20:13)
[2017-10-23] MEDS: AMITRIPTYLINE HCL 25 MG TAB PO SCH (20:13)
[2017-10-24] MEDS: clonazePAM 1 MG TAB PO SCH ×2 (05:36→17:38)
[2017-10-24] MEDS: traMADol 50 MG TAB PO PRN ×4 (05:46→23:44)
[2017-10-24] MEDS: risperiDONE 1 MG TAB PO SCH ×2 (08:43→20:40)
[2017-10-24] MEDS: CHOLECALCIFEROL 1,000 UNIT TAB PO SCH (08:43)
[2017-10-24] MEDS: RIVAROXABAN 10 MG TAB PO SCH (08:43)
[2017-10-24] MEDS: METOPROLOL SUCCINATE (ER) 50 MG TAB.ER.24H PO SCH (08:43)
[2017-10-24] MEDS: MULTIVITAMINS, THERA 1 EACH TAB PO SCH (08:43)
--- NOTE | 2017-10-24 11:59 | P.PN ---
Subjective Progress Note Date: 10/24/17 Principal diagnosis: Status post medial retinacular repair left knee Patient seen today resting in her hospital bed. Her pain is controlled. She denies any headaches, lightheadedness, chest pain or shortness of breath. Objective - Vital Signs Vital signs: Vital Signs Temp 97.4 F L 10/24/17 07:00 Pulse 89 10/24/17 07:00 Resp 16 10/24/17 07:00 BP 125/73 10/24/17 07:00 Pulse Ox 94 L 10/24/17 07:00 Intake & Output 10/23/17 10/24/17 10/24/17 18:59 06:59 18:59 Intake Total 560 1000 Output Total 200 Balance 360 1000 Intake: Intake, IV Titration 200 400 Amount Lactated Ringers 1,000 ml 200 400 @ 50 mls/hr IV .Q20H DK Rx#:[id number] Oral 360 Other 600 Output: Urine 200 Uretheral (Cantu) 200 Other: Voiding Method Indwelling Catheter Indwelling Catheter Indwelling Catheter # Voids 3 - Exam Left lower extremity: Long-leg cast is in good position and condition. Her toes are warm to touch, she is able to wiggle toes no difficulty. Sensory exam to light touch at the toes is intact. - Labs CBC & Chem 7: 10/23/17 06:56 Assessment and Plan Plan: Assessment: 1. Postop day #2 status post medial retinacular left knee Plan: 1. Pain control, low-dose oral medication 2. Nonweightbearing left lower extremity, walker which transferring 3. GI and DVT prophylaxis, Xarelto 10 mg daily 4. Encourage incentive spirometer 5. Medical recommendations 6. Discharge planning: Await placement for subacute rehab Time with Patient: Less than 30
[2017-10-24] MEDS: TEMAZEPAM 30 MG CAP PO SCH (20:39)
[2017-10-24] MEDS: AMITRIPTYLINE HCL 25 MG TAB PO SCH (20:40)
[2017-10-24] MEDS: SENNOSIDES-DOCUSATE SODIUM 1 EACH TAB PO SCH (20:40)
[2017-10-24] MEDS: BENZTROPINE MESYLATE 0.5 MG TAB PO SCH (20:40)
[2017-10-24] MEDS: MAGNESIUM HYDROXIDE 2,400 MG/10 ML CUP PO PRN (20:47)
--- NOTE | 2017-10-24 22:52 | PN ---
PROGRESS NOTE DATE OF SERVICE: 10/24/2017. This 61-year-old woman was admitted after left total knee arthroplasty with repair of the medial capsular tear, is being closely monitored. The patient will need ECF rehab. The patient is complaining of pain. The patient has poor social support, also. No chest pain. No palpitations. No fever. EXAM: Alert and oriented x3. Pulse 89, blood pressure 125/70, respirations 16, temperature 97.4, pulse ox 94% on room air. HEENT: Conjunctivae normal. NECK: No jugular venous distention. CARDIOVASCULAR: S1, S2 muffled. RESPIRATORY: Breath sounds diminished in the bases. No rhonchi. No crackles. ABDOMEN: Soft, nontender. LEGS: Status post surgery. NERVOUS SYSTEM: No focal deficits. LABS: WBC 7, hemoglobin is 9. ASSESSMENT: 1. Status post left total arthrotomy and repair of the medial capsular tear. 2. Gait dysfunction. 3. Severe left knee pain. 4. Hypertension. 5. Extensive psychiatric illness. 6. History of degenerative joint disease. 7. Poor social support. 8. History of anxiety. RECOMMENDATIONS AND DISCUSSION: I recommend to continue current medical management and symptomatic treatment. Otherwise at this time, monitor the patient closely. Closely follow with Orthopedic Surgery. Further recommendations to follow. MMODL / IJN: [id number] /
[2017-10-25] MEDS: clonazePAM 1 MG TAB PO SCH ×2 (05:12→18:40)
[2017-10-25 07:08] LABS: Basophils % (A) 0 %; Eosinophils # (A) 0.1 k/uL (0-0.7); Eosinophils % (A) 2 %; HCT 32.5 % (34.0-46.0); Hypochromasia Marked; Lymphocytes # (A) 1.5 k/uL (1.0-4.8); Lymphocytes % (A) 27 %; MCH 21.1 pg (25.0-35.0); MCHC 27.8 g/dL (31.0-37.0); Mean Platelet Volume 6.7; Microcytosis Slight; Monocytes # (A) 0.6 k/uL (0-1.0); Monocytes % (A) 10 %; Neutrophils # (A) 3.2 k/uL (1.3-7.7); Neutrophils % (A) 57 %; Platelet Count 287 k/uL (150-450); RBC 4.28 m/uL (3.80-5.40); WBC 5.7 k/uL (3.8-10.6)
[2017-10-25] MEDS: traMADol 50 MG TAB PO PRN ×3 (09:25→23:56)
[2017-10-25] MEDS: RIVAROXABAN 10 MG TAB PO SCH (09:26)
[2017-10-25] MEDS: METOPROLOL SUCCINATE (ER) 50 MG TAB.ER.24H PO SCH (09:26)
[2017-10-25] MEDS: MULTIVITAMINS, THERA 1 EACH TAB PO SCH (09:26)
[2017-10-25] MEDS: CHOLECALCIFEROL 1,000 UNIT TAB PO SCH (09:27)
[2017-10-25] MEDS: risperiDONE 1 MG TAB PO SCH ×2 (09:27→22:09)
--- NOTE | 2017-10-25 12:04 | P.PN ---
Subjective Progress Note Date: 10/25/17 Principal diagnosis: Status post medial retinacular repair left knee Patient seen today resting in her hospital bed. Her pain is controlled. She denies any headaches, lightheadedness, chest pain or shortness of breath. Objective - Vital Signs Vital signs: Vital Signs Temp 98.2 F 10/25/17 07:00 Pulse 88 10/25/17 07:00 Resp 14 10/25/17 07:00 BP 143/77 10/25/17 07:00 Pulse Ox 97 10/25/17 07:00 Intake & Output 10/24/17 10/25/17 10/25/17 18:59 06:59 18:59 Intake Total 200 360 Balance 200 360 Intake: Oral 360 Other 200 Other: Voiding Method Indwelling Catheter Incontinent Incontinent # Voids 2 3 - Exam Left lower extremity: Long-leg cast is in good position and condition. We were able to inspect the wound today through the window that was cut doing surgery, the sharyn are in good position. Her toes are warm to touch, she is able to wiggle toes no difficulty. Sensory exam to light touch at the toes is intact. - Labs CBC & Chem 7: 10/25/17 06:55 Labs: Abnormal Lab Results - Last 24 Hours (Table) 10/25/17 Range/Units 06:55 Hgb 9.0 L (11.4-16.0) gm/dL Hct 32.5 L (34.0-46.0) % MCV 76.0 L (80.0-100.0) fL MCH 21.1 L (25.0-35.0) pg MCHC 27.8 L (31.0-37.0) g/dL Assessment and Plan Plan: Assessment: 1. Postop day #3 status post medial retinacular left knee Plan: 1. Pain control, low-dose oral medication 2. Nonweightbearing left lower extremity, walker which transferring 3. GI and DVT prophylaxis, Xarelto 10 mg daily 4. Encourage incentive spirometer 5. Medical recommendations 6. Discharge planning: Await placement for subacute rehab Time with Patient: Less than 30
--- NOTE | 2017-10-25 12:09 | P.DS ---
Providers Date of admission: 10/23/17 10:08 Expected date of discharge: 10/25/17 Attending physician: Clay Cheney Consults: 10/22/17 17:15 Consult Physician Routine Consulting Provider: Kennedy Noel Consult Reason/Comments: Medical Management Do you want consulting provider notified?: Yes 10/22/17 17:52 Consult Physician Routine Consulting Provider: Khoi Palomino Consult Reason/Comments: medical management Do you want consulting provider notified?: Yes Primary care physician: Lilly Martinez Hospital Course: Date of admission: 10/22/2017 Date of discharge: 10/25/2017 Admission diagnosis: Status post repair left knee medial retinacular tear Discharge diagnosis: Same Attending physician: Dr. Cheney Surgical procedures: Open repair left knee medial retinacular Brief history: Patient is a 61-year-old female with a history of a previous left total knee arthroplasty in July 2017. Since the surgery, the patient has had multiple falls and has resulted in tearing of the medial retinaculum. Patient has had 2 previous repairs of the medial retinaculum and quad tendon, this being the third. Patient was evaluated in the outpatient setting by Dr. Cheney, she was scanned for surgery on 10/22/2017. Hospital course: Details of patient's surgery can be found in operative report. Patient tolerated the procedure well and was subsequently transported to orthopedic floor. Patient's orthopeidc and medical care was provided daily. Patient had daily laboratory tests performed for evaluation of overall blood counts. Patient was treated with Xarelto for their postoperative DVT prophylaxis during their inpatient stay. Patient was noted to have a relatively uneventful postoperative course. Patient reported satisfactory pain control with oral pain medications by postoperative day 0. Patient showed satisfactory progress with physical therapy. Patient moved steadily through the program and had no difficulty meeting the goals by postoperative day 3. Given patient's otherwise satisfactory course and having met physical therapy goals, plan is to discharge patient rehab on postoperative day 3. Discharge condition/disposition: Patient will be discharged rehab in stable condition. Discharge medications: Instructions are given on resumption of patient's normal daily medications per primary care recommendation, in addition patient will be prescribed Xarelto 10 mg. Discharge instructions: 1. Wound care and infection precautions, keep incision dry and covered while showering, no lotions, creams, moisturizers. No soaking, tubs, pools, hottubs. Do not scrub over the incision. 2. Nonweightbearing left lower extremity, utilize walker when transferring. Do not remove cast. 3. Ice and elevate when necessary. Do not exceed 20 minutes per hour with ice pack. 4. Utilize compression sleeve until seen at first follow up appointment. 5. Pain meds and anticoagulants per prescription. 6. Pain medication has potential to cause constipation. Increase oral fluid and fiber intake. Contact primary care provider if you have not had a bowel movement within 48 hours after discharge 7. No anti-inflammatory medication until discussed at first post operative visit, this including Motrin, Aleve, Mobic, Diclofenac. 8. Follow up in office at 2 weeks postop with Kristopher Mcadams PA-C 9. Follow up with your primary care doctor 7-10 days after discharge. 10. Contact [facility] with any questions, . Procedures: Left knee medial retinacular repair Patient Condition at Discharge: Good Plan - Discharge Summary Discharge Rx Participant: Yes New Discharge Prescriptions: New traMADol HCl [Ultram] 50 mg PO Q6H PRN #40 tab PRN Reason: Pain Rivaroxaban [Xarelto] 10 mg PO DAILY #28 tab No Action Triazolam [Halcion] 0.5 mg PO HS Multivitamins, Thera [Multivitamin (formulary)] 1 tab PO DAILY fluvoxaMINE MALEATE [Fluvoxamine Maleate] 200 mg PO HS fluvoxaMINE MALEATE [Fluvoxamine Maleate] 100 mg PO QAM Benztropine Mesylate [Cogentin] 0.5 mg PO HS Metoprolol Succinate (ER) [Toprol XL] 50 mg PO QAM clonazePAM [Clonazepam] 2 mg PO BID Amitriptyline HCl [Elavil] 25 mg PO HS risperiDONE [RisperDAL] 1 mg PO BID Cholecalciferol [Vitamin D3] 1,000 units PO DAILY Discharge Medication List Amitriptyline HCl [Elavil] 25 mg PO HS 07/25/17 [History] Benztropine Mesylate [Cogentin] 0.5 mg PO HS 07/25/17 [History] Cholecalciferol [Vitamin D3] 1,000 units PO DAILY 07/25/17 [History] Metoprolol Succinate (ER) [Toprol XL] 50 mg PO QAM 07/25/17 [History] Multivitamins, Thera [Multivitamin (formulary)] 1 tab PO DAILY 07/25/17 [History ] Triazolam [Halcion] 0.5 mg PO HS 07/25/17 [History] clonazePAM [Clonazepam] 2 mg PO BID 07/25/17 [History] fluvoxaMINE MALEATE [Fluvoxamine Maleate] 100 mg PO QAM 07/25/17 [History] fluvoxaMINE MALEATE [Fluvoxamine Maleate] 200 mg PO HS 07/25/17 [History] risperiDONE [RisperDAL] 1 mg PO BID 07/25/17 [History] Rivaroxaban [Xarelto] 10 mg PO DAILY #28 tab 10/25/17 [Rx] traMADol HCl [Ultram] 50 mg PO Q6H PRN #40 tab 10/25/17 [Rx] Follow up Appointment(s)/Referral(s): Clay Cheney DO [Doctor of Osteopathic Medicine] - 11/07/17 3:10 pm Activity/Diet/Wound Care/Special Instructions: Orthopedic discharge instructions: 1. Nonweightbearing left lower extremity, utilize walker when transferring from the bathroom to bed or chair 2. Do not remove the cast 3. Patient does have sharyn over the incision, these will be removed at her postoperative appointment at [facility] 4. Xarelto 10 mg once a day for DVT prophylaxis 5. Plan for follow-up at [facility] in 2 weeks 6. Please contact [phone] with any questions Discharge Disposition: TRANSFER TO SNF/ECF
--- NOTE | 2017-10-25 14:02 | PN ---
PROGRESS NOTE DATE OF SERVICE: 10/25/2017. INTERVAL HISTORY: This 61-year-old woman was admitted after left total knee arthrotomy as well as repair of medial capsular tear is being closely monitored. No chest pain. No palpitations. No fever. EXAM: On exam, alert, oriented x3. Pulse 79, blood pressure 141/79, respirations 16, temperature 97 degrees, pulse ox 97% on room air. HEENT: Conjunctivae normal. NECK: No jugular venous distention. CARDIOVASCULAR: S1, S2. No S3, no S4. RESPIRATORY: Breath sounds diminished in the bases. No rhonchi, no crackles. ABDOMEN: Soft. LEGS: Status post left knee arthroplasty. NERVOUS SYSTEM: No focal deficits. LABS: WBC 5.2, hemoglobin is 9. ASSESSMENT: 1. Status post left total knee arthrotomy as well as repair of the medial capsular tear. 2. Gait dysfunction. 3. Severe left knee pain. 4. Hypertension. 5. Extensive psychiatric illness. 6. History of degenerative joint disease. 7. Poor social support. 8. History of anxiety. RECOMMENDATIONS AND DISCUSSION: I recommend to continue current management and symptomatic treatment. Otherwise PT, OT evaluation. Continue the rest of medications for possible ECF rehab. Further recommendations to follow. MMODL / IJN: [id number] /
[2017-10-25] MEDS: HYDROmorphone 0.5 MG/0.5 ML SYRINGE IVP PRN (20:39)
[2017-10-25] MEDS: BENZTROPINE MESYLATE 0.5 MG TAB PO SCH (22:09)
[2017-10-25] MEDS: AMITRIPTYLINE HCL 25 MG TAB PO SCH (22:09)
[2017-10-25] MEDS: SENNOSIDES-DOCUSATE SODIUM 1 EACH TAB PO SCH (22:11)
[2017-10-25] MEDS: TEMAZEPAM 30 MG CAP PO SCH (22:13)
[2017-10-25] MEDS: MAGNESIUM HYDROXIDE 2,400 MG/10 ML CUP PO PRN (22:15)
[2017-10-26] MEDS: HYDROmorphone 0.5 MG/0.5 ML SYRINGE IVP PRN ×2 (01:13→23:13)
[2017-10-26] MEDS: clonazePAM 1 MG TAB PO SCH ×2 (05:09→17:51)
[2017-10-26] MEDS: MULTIVITAMINS, THERA 1 EACH TAB PO SCH (09:47)
[2017-10-26] MEDS: risperiDONE 1 MG TAB PO SCH ×2 (09:48→21:02)
[2017-10-26] MEDS: traMADol 50 MG TAB PO PRN ×3 (09:48→20:59)
[2017-10-26] MEDS: RIVAROXABAN 10 MG TAB PO SCH (09:48)
[2017-10-26] MEDS: METOPROLOL SUCCINATE (ER) 50 MG TAB.ER.24H PO SCH (09:49)
[2017-10-26] MEDS: CHOLECALCIFEROL 1,000 UNIT TAB PO SCH (12:24)
--- NOTE | 2017-10-26 16:21 | PN ---
PROGRESS NOTE DATE OF SERVICE: 10/26/2017. INTERVAL HISTORY: This 61-year-old woman who was admitted with left total knee and as well as repair is being closely monitored. No chest pain. No palpitations. No fever. EXAM: Alert and oriented times three. Pulse 91, blood pressure 150/92, respiration 20 , temperature 98 degrees, pulse ox 99% on room air. HEENT: Conjunctivae normal. NECK: No jugular venous distention. CARDIOVASCULAR : S1, S2 Muffled. RESPIRATORY: Breath sounds diminished in the bases. No rhonchi and no crackles. Abdomen is soft, nontender. No mass palpable. Legs status post surgery. Nervous system: No focal deficits. LABORATORY DATA: WBC 5.7, hemoglobin is 9. ASSESSMENT: 1. Status post left total knee as well as repair of the medial capsular tear. 2. Gait dysfunction. 3. Severe left knee pain. 4. Hypertension. 5. Extensive psychiatric illnesses. 6. History of degenerative joint disease. 7. Poor social support. 8. History of anxiety. RECOMMENDATIONS AND DISCUSSION: Recommend to continue current medications, symptomatic treatment. Otherwise at this time I recommend PT/OT evaluation, possible ECF rehab. Resume the current medications. Further recommendations to follow. MMODL / IJN: [id number] / ROBIN
[2017-10-26] MEDS: AMITRIPTYLINE HCL 25 MG TAB PO SCH (20:59)
[2017-10-26] MEDS: BENZTROPINE MESYLATE 0.5 MG TAB PO SCH (20:59)
[2017-10-26] MEDS: TEMAZEPAM 30 MG CAP PO SCH (20:59)
[2017-10-26] MEDS: SENNOSIDES-DOCUSATE SODIUM 1 EACH TAB PO SCH (21:01)
[2017-10-27] MEDS: traMADol 50 MG TAB PO PRN ×3 (02:07→17:06)
[2017-10-27] MEDS: HYDROmorphone 0.5 MG/0.5 ML SYRINGE IVP PRN (03:22)
[2017-10-27] MEDS: METOPROLOL SUCCINATE (ER) 50 MG TAB.ER.24H PO SCH (08:40)
[2017-10-27] MEDS: RIVAROXABAN 10 MG TAB PO SCH (08:40)
[2017-10-27] MEDS: clonazePAM 1 MG TAB PO SCH ×3 (08:40→19:45)
[2017-10-27] MEDS: risperiDONE 1 MG TAB PO SCH ×2 (08:41→19:46)
[2017-10-27] MEDS: MULTIVITAMINS, THERA 1 EACH TAB PO SCH (08:41)
[2017-10-27] MEDS: CHOLECALCIFEROL 1,000 UNIT TAB PO SCH (12:23)
[2017-10-27] MEDS: HYDROcodone/APAP 5-325MG 1 EACH TAB PO PRN ×2 (12:25→19:45)
--- NOTE | 2017-10-27 12:51 | P.PN ---
Progress Note - Text Progress Note Date: 10/27/17 Patient seen sitting up in chair. She reports some mild discomfort but overall tolerable. She reports doing some transfers otherwise basically she's been sedentary. She is wiggling her toes as tolerated. She denies any new complaints. Long leg cast is in good repair and appears in good position. The incision is visualized and the anterior window and appears stable - well approximated and no drainage. Patient is able to move her toes with no pain. There is good perfusion and sensation to the toes. Impression: Status post left knee medial capsular/retinacular repair History left total knee arthroplasty Medical comorbidities Plan: Continue with long leg cast/nonweightbearing left lower extremity Pain management DVT prophylaxis Medical management Await rehab placement/discharge planning
[2017-10-27] MEDS: SENNOSIDES-DOCUSATE SODIUM 1 EACH TAB PO SCH (19:44)
[2017-10-27] MEDS: AMITRIPTYLINE HCL 25 MG TAB PO SCH (19:46)
[2017-10-27] MEDS: BENZTROPINE MESYLATE 0.5 MG TAB PO SCH (19:46)
[2017-10-27] MEDS: TEMAZEPAM 30 MG CAP PO SCH (19:46)
[2017-10-27 21:16] LABS: Glucose,Whole Blood 107 mg/dL (75-99)
[2017-10-28] MEDS: traMADol 50 MG TAB PO PRN ×3 (05:27→18:57)
[2017-10-28] MEDS: clonazePAM 1 MG TAB PO SCH ×2 (05:27→17:16)
[2017-10-28 07:03] LABS: Glucose,Whole Blood 109 mg/dL (75-99)
[2017-10-28] MEDS: HYDROcodone/APAP 5-325MG 1 EACH TAB PO PRN ×3 (08:14→22:35)
[2017-10-28] MEDS: MULTIVITAMINS, THERA 1 EACH TAB PO SCH (08:15)
[2017-10-28] MEDS: risperiDONE 1 MG TAB PO SCH ×2 (08:16→19:49)
[2017-10-28] MEDS: RIVAROXABAN 10 MG TAB PO SCH (08:16)
[2017-10-28] MEDS: METOPROLOL SUCCINATE (ER) 50 MG TAB.ER.24H PO SCH (08:16)
--- NOTE | 2017-10-28 10:21 | PN ---
PROGRESS NOTE DATE OF SERVICE: October 27, 2017. PRESENT COMPLAINT: Knee surgery. INTERVAL HISTORY: This patient was seen by me yesterday on October 27, 2017. The patient is status post left knee surgery. Pain is controlled. Tolerating a diet. No chest pain or shortness of breath. Lying in bed. REVIEW OF SYSTEMS: Done for constitutional, cardiovascular, GI, pulmonary, musculoskeletal; relevant findings as above. CURRENT MEDICATIONS: Reviewed. EXAMINATION: Temperature 97.8, pulse 80, respiratory 20, blood pressure 138/82, pulse ox 94% on room air. General appearance: Lying in bed, comfortable. Eyes pupils equal. Conjunctivae normal. HEENT: External appearance of nose, ears normal. Oral cavity normal. Neck: JVD not raised. Mass not palpable. Respiratory effort normal. Lungs are clear. Cardiovascular: 1st and 2nd sounds normal. No edema. ABDOMEN: Soft, nontender. Liver and spleen not palpable. No mass palpable. Psychiatry: Alert and orient x3. Mood and affect normal. Extremities: Left knee in a support. INVESTIGATIONS: White count 5.7, hemoglobin 9.0. ASSESSMENT: 1. Essential hypertension. 2. Obesity; BMI greater than 30. 3. Primary osteoarthritis. 4. Anxiety, not otherwise specified. 5. Chronic constipation, idiopathic. 6. Acute blood loss anemia as expected from surgery. Patient's hemoglobin was 11.4 on September 21, 2017. Now 9.0. 7. Status post left knee arthrotomy with repair of medial capsular tear. PLAN: Continue current medication and treatment plan. Care was discussed with the patient. Care was also discussed with the nurse. Primary team is looking into discharge planning. MMODL / IJN: [id number] /
[2017-10-28 11:34] LABS: Glucose,Whole Blood 124 mg/dL (75-99)
[2017-10-28] MEDS: CHOLECALCIFEROL 1,000 UNIT TAB PO SCH (14:56)
--- NOTE | 2017-10-28 16:01 | P.PN ---
Progress Note - Text Progress Note Date: 10/28/17 Patient Seen sitting up in chair. Appears comfortable. No new complaints. Cast stable. Incision stable. Distal neurovasclar intact. Imression: S/P repair medial caspular tear left knee Left TKA Plan: Continue cast/ NWB LLE DVT prophylaxis Medical management D/C Planning
[2017-10-28 17:13] LABS: Glucose,Whole Blood 89 mg/dL (75-99)
[2017-10-28] MEDS: TEMAZEPAM 30 MG CAP PO SCH (19:48)
[2017-10-28] MEDS: BENZTROPINE MESYLATE 0.5 MG TAB PO SCH (19:48)
[2017-10-28] MEDS: AMITRIPTYLINE HCL 25 MG TAB PO SCH (19:48)
[2017-10-28] MEDS: HYDROmorphone 2 MG TAB PO PRN (19:48)
[2017-10-28] MEDS: SENNOSIDES-DOCUSATE SODIUM 1 EACH TAB PO SCH (19:49)
[2017-10-28 20:07] LABS: Glucose,Whole Blood 119 mg/dL (75-99)
--- NOTE | 2017-10-28 22:15 | PN ---
PROGRESS NOTE DATE OF SERVICE: 10/28/2017. PRESENTING COMPLAINT: Left knee surgery. INTERVAL HISTORY: Patient is status post left knee surgery, having some pain. Tolerating a diet. Had a bowel movement. Had a good sleep. Comfortable, watching television. REVIEW OF SYSTEMS: Done for constitutional, cardiovascular, GI, pulmonary, musculoskeletal; relevant findings as above. CURRENT MEDICATIONS: Reviewed. EXAMINATION: On examination, afebrile, pulse 87, respirations 18, blood pressure 146/77, pulse ox 98% on room air. GENERAL APPEARANCE: Lying in bed comfortable, awake. EYES: Pupils equal. Conjunctivae normal. HEENT: External appearance of nose and ears normal. Oral cavity normal. NECK: JVD not raised. Mass not palpable. Respiratory effort normal. LUNGS: Clear. CARDIOVASCULAR: 1st and 2nd sounds normal. No edema. ABDOMEN: Soft, nontender. Liver and spleen not palpable. No mass palpable. PSYCHIATRY: Alert, oriented x3. Mood normal. EXTREMITIES: Left knee in a cast. INVESTIGATIONS: Accu-Cheks noted. ASSESSMENT: 1. Essential hypertension. 2. Obesity, body mass index greater than 30. 3. Primary osteoarthritis. 4. Anxiety, not otherwise specified. 5. Chronic constipation, idiopathic. 6. Acute blood-loss anemia as expected from surgery. 7. Status post left knee arthrotomy with repair of the medial capsule tear, left leg in a cast. PLAN: Continue current medication and treatment plan. Care was discussed with the patient. MMNHANL / IJN: [id number] /
[2017-10-29] MEDS: traMADol 50 MG TAB PO PRN ×4 (02:44→20:57)
[2017-10-29] MEDS: clonazePAM 1 MG TAB PO SCH ×2 (05:50→17:49)
[2017-10-29] MEDS: HYDROcodone/APAP 5-325MG 1 EACH TAB PO PRN ×4 (05:51→23:05)
[2017-10-29 07:01] LABS: Glucose,Whole Blood 207 mg/dL (75-99)
[2017-10-29] MEDS: risperiDONE 1 MG TAB PO SCH ×2 (08:56→20:56)
[2017-10-29] MEDS: METOPROLOL SUCCINATE (ER) 50 MG TAB.ER.24H PO SCH (08:56)
[2017-10-29] MEDS: MULTIVITAMINS, THERA 1 EACH TAB PO SCH (08:56)
[2017-10-29] MEDS: RIVAROXABAN 10 MG TAB PO SCH (08:57)
[2017-10-29 11:46] LABS: Glucose,Whole Blood 100 mg/dL (75-99)
[2017-10-29] MEDS: CHOLECALCIFEROL 1,000 UNIT TAB PO SCH (12:04)
[2017-10-29 16:56] LABS: Glucose,Whole Blood 102 mg/dL (75-99)
[2017-10-29] MEDS: AMITRIPTYLINE HCL 25 MG TAB PO SCH (20:56)
[2017-10-29] MEDS: BENZTROPINE MESYLATE 0.5 MG TAB PO SCH (20:56)
[2017-10-29] MEDS: TEMAZEPAM 30 MG CAP PO SCH (20:56)
[2017-10-29 20:58] LABS: Glucose,Whole Blood 107 mg/dL (75-99)
[2017-10-29] MEDS: SENNOSIDES-DOCUSATE SODIUM 1 EACH TAB PO SCH (20:58)
--- NOTE | 2017-10-30 01:03 | PN ---
PROGRESS NOTE DATE OF SERVICE: October 29, 2017. PRESENTING COMPLAINT: Left knee surgery. INTERVAL HISTORY: Patient is status post left knee surgery, left leg in a cast. Tolerating a diet. Mother is present at the bedside. No new issues. REVIEW OF SYSTEMS: Done for constitutional, cardiovascular, GI, pulmonary, musculoskeletal and relevant findings as above. CURRENT MEDICATIONS: Reviewed. EXAMINATION: Temperature 97.9, pulse 52, respiratory rate 18, blood pressure 146/80, pulse ox 97% on room air. General appearance: Lying in bed, comfortable, awake. Eyes: Pupils are equal. Conjunctivae normal. HEENT external appearance of nose and ears normal. Oral cavity normal. Neck JVD not raised. Mass not palpable. Respiratory effort lungs fair entry. Cardiovascular: 1st and 2nd sounds normal. No edema. ABDOMEN: Soft, nontender. Liver and spleen not palpable. Psychiatry: Alert and oriented times three. Mood and affect is normal. Extremities: Left knee in a cast. INVESTIGATIONS: Accu-Cheks are noted. ASSESSMENT: 1. Essential hypertension. 2. Obesity; BMI greater than 30. 3. Primary osteoarthritis. 4. Anxiety, not otherwise specified. 5. Chronic constipation, idiopathic. 6. Acute blood loss anemia expected from surgery. 7. Status post left knee arthrotomy with repair of the medial capsule tear, left leg in a cast. PLAN: Continue current medication and treatment plan. Care was discussed with the patient and mother at the bedside. Discharge planning per Orthopedics. MMODL / ELLIOTTN: [id number] /
[2017-10-30] MEDS: traMADol 50 MG TAB PO PRN ×4 (02:56→20:53)
[2017-10-30] MEDS: HYDROcodone/APAP 5-325MG 1 EACH TAB PO PRN ×3 (06:22→19:55)
[2017-10-30] MEDS: clonazePAM 1 MG TAB PO SCH ×2 (06:22→17:17)
[2017-10-30 07:02] LABS: Glucose,Whole Blood 113 mg/dL (75-99)
[2017-10-30] MEDS: METOPROLOL SUCCINATE (ER) 50 MG TAB.ER.24H PO SCH (09:00)
[2017-10-30] MEDS: MULTIVITAMINS, THERA 1 EACH TAB PO SCH (09:01)
[2017-10-30] MEDS: RIVAROXABAN 10 MG TAB PO SCH (09:01)
[2017-10-30] MEDS: risperiDONE 1 MG TAB PO SCH ×2 (09:01→20:53)
[2017-10-30 11:37] LABS: Glucose,Whole Blood 99 mg/dL (75-99)
[2017-10-30] MEDS: CHOLECALCIFEROL 1,000 UNIT TAB PO SCH (12:42)
[2017-10-30 16:42] LABS: Glucose,Whole Blood 220 mg/dL (75-99)
[2017-10-30 19:48] LABS: Glucose,Whole Blood 121 mg/dL (75-99)
[2017-10-30 19:51] VITALS: BP 173/78; PULSE 78; RESP 20; TEMP 98.3
[2017-10-30] MEDS: TEMAZEPAM 30 MG CAP PO SCH (20:53)
[2017-10-30] MEDS: AMITRIPTYLINE HCL 25 MG TAB PO SCH (20:53)
[2017-10-30] MEDS: BENZTROPINE MESYLATE 0.5 MG TAB PO SCH (20:53)
[2017-10-30] MEDS: SENNOSIDES-DOCUSATE SODIUM 1 EACH TAB PO SCH (20:59)
--- NOTE | 2017-10-30 21:14 | PN ---
PROGRESS NOTE DATE OF SERVICE: 10/30/2017 PRESENTING COMPLAINT: Left knee surgery. INTERVAL HISTORY: The patient is lying in bed, comfortable, did tolerate his meals. Pending placement. Breathing is stable. REVIEW OF SYSTEMS: Done for constitutional, cardiovascular, GI, pulmonary, musculoskeletal; relevant findings as above. CURRENT MEDICATIONS: Reviewed. EXAMINATION: Temperature 98, pulse 89, respirations 16, blood pressure 130/78, pulse ox 96% on room air. GENERAL APPEARANCE: Lying in bed, comfortable. EYES: Pupils equal. Conjunctivae normal. HEENT: External nose and ears normal. Oral cavity normal. NECK: JVD not raised. Mass not palpable. RESPIRATORY: Effort normal. LUNGS: Fair entry. CARDIOVASCULAR: First and second sounds normal. No edema. ABDOMEN: Soft, nontender. Liver and spleen not palpable. PSYCHIATRIC: Alert and oriented x3. Mood and affect were normal. EXTREMITIES: Left knee in a cast. INVESTIGATIONS: Accu-Cheks are noted. ASSESSMENT: 1. Essential hypertension. 2. Obesity, BMI greater than 30. 3. Primary osteoarthritis. 4. Anxiety, not otherwise specified. 5. Chronic constipation, idiopathic. 6. Acute blood-loss anemia as expected from surgery. 7. Status post left knee arthrotomy with repair of the medial capsule tear and the left leg is in a cast. PLAN: Continue medication and treatment plan. Awaiting discharge. MMODL / IJN: [id number] /
[2017-10-30] MEDS: HYDROmorphone 2 MG TAB PO PRN (23:17)
[2017-10-31] MEDS: HYDROcodone/APAP 5-325MG 1 EACH TAB PO PRN ×2 (06:00→13:06)
[2017-10-31] MEDS: clonazePAM 1 MG TAB PO SCH (06:00)
[2017-10-31 07:14] LABS: Glucose,Whole Blood 105 mg/dL (75-99)
[2017-10-31] MEDS: MULTIVITAMINS, THERA 1 EACH TAB PO SCH (09:26)
[2017-10-31] MEDS: risperiDONE 1 MG TAB PO SCH (09:26)
[2017-10-31] MEDS: RIVAROXABAN 10 MG TAB PO SCH (09:26)
[2017-10-31] MEDS: METOPROLOL SUCCINATE (ER) 50 MG TAB.ER.24H PO SCH (09:26)
[2017-10-31] MEDS: CHOLECALCIFEROL 1,000 UNIT TAB PO SCH (09:26)
[2017-10-31] MEDS: traMADol 50 MG TAB PO PRN (09:31)
[2017-10-31 11:38] LABS: Glucose,Whole Blood 128 mg/dL (75-99)
--- NOTE | 2017-10-31 12:16 | P.PN ---
Subjective Progress Note Date: 10/31/17 Principal diagnosis: Status post medial retinacular repair left knee Patient seen today resting in her hospital bed. Her pain is controlled. She denies any headaches, lightheadedness, chest pain or shortness of breath. Objective - Vital Signs Vital signs: Vital Signs Temp 98.3 F 10/30/17 19:49 Pulse 78 10/30/17 19:49 Resp 20 10/30/17 19:49 BP 173/78 10/30/17 19:49 Pulse Ox 97 10/30/17 19:49 Intake & Output 10/30/17 10/31/17 10/31/17 18:59 06:59 18:59 Intake Total 60 Balance 60 Weight 87.54 kg Intake: Oral 60 Other: # Voids 3 1 - Exam Left lower extremity: Long-leg cast is in good position and condition. [place] are in good position Her toes are warm to touch, she is able to wiggle toes no difficulty. Sensory exam to light touch at the toes is intact. - Labs CBC & Chem 7: 10/25/17 06:55 Labs: Abnormal Lab Results - Last 24 Hours (Table) 10/30/17 10/30/17 10/31/17 Range/Units 16:39 19:46 07:05 POC Glucose (mg/dL) 220 H 121 H 105 H (75-99) mg/dL 10/31/17 Range/Units 11:35 POC Glucose (mg/dL) 128 H (75-99) mg/dL Assessment and Plan Plan: Assessment: 1. Postop day #9 status post medial retinacular left knee Plan: 1. Pain control, low-dose oral medication 2. Nonweightbearing left lower extremity, walker which transferring 3. GI and DVT prophylaxis, Xarelto 10 mg daily 4. Encourage incentive spirometer 5. Medical recommendations 6. Discharge planning: There are multiple attempts at rehab placement for this patient, ensuring syndrome denying her claim for subacute rehab. Patient will not be discharged to home today. Time with Patient: Less than 30
--- NOTE | 2017-10-31 20:33 | PN ---
PROGRESS NOTE DATE OF SERVICE: 10/31/2017 PRESENTING COMPLAINT: Left knee surgery. INTERVAL HISTORY: Patient is comfortable. Awaiting placement. Tolerating a diet. Had a bowel movement. No new issues. REVIEW OF SYSTEMS: Done for constitutional, cardiovascular, GI, pulmonary; relevant findings as above. CURRENT MEDICATIONS: Reviewed. PHYSICAL EXAMINATION: Temperature 98.3, pulse 78, respiration 20, blood pressure 148/84, pulse ox 97% on room air. GENERAL APPEARANCE: Lying in bed, comfortable. EYES: Pupils equal. Conjunctivae normal. HEENT: External appearance of nose and ears normal. Oral cavity normal. NECK: JVD not raised. Mass not palpable. RESPIRATORY: Effort normal. Lungs are clear. CARDIOVASCULAR: First and second sounds normal. No edema. ABDOMEN: Soft, nontender. Liver and spleen not palpable. PSYCHIATRY: Alert and oriented x3. Mood and affect normal. EXTREMITIES: Left knee in a cast. ASSESSMENT: 1. Essential hypertension. 2. Obesity; body mass index greater than 30. 3. Primary osteoarthritis. 4. Anxiety not otherwise specified. 5. Chronic constipation, idiopathic. 6. Acute blood loss anemia, expected from surgery. 7. Status post left knee surgery. PLAN: Stable. Continue current medication. Follow up as arranged. MMODL / IJN: [id number] /
== END 2017-10-31 14:28 | disposition home or self-care (01) | DRG 488 ==
LOC: OR 13:11 → 3SUR 16:51 → OR 10-23 10:08
PROVIDERS: ADMIT Orthopaedic Surgery; ATTEND Orthopaedic Surgery
PROC: 0MQP0ZZ Repair Left Knee Bursa and Ligament, Open Approach (ICD-10-PCS; principal; 2017-10-23)
DX: S83.412A Sprain of medial collateral ligament of left knee, initial encounter (principal); D62 Acute posthemorrhagic anemia; E66.9 Obesity, unspecified; F32.9 Major depressive disorder, single episode, unspecified; F41.9 Anxiety disorder, unspecified; I10 Essential (primary) hypertension; K59.09 Other constipation; M19.91 Primary osteoarthritis, unspecified site; Z80.0 Family history of malignant neoplasm of digestive organs; Z96.653 Presence of artificial knee joint, bilateral; Z91.19 Patient's noncompliance with other medical treatment and regimen
CPT/HCPCS: 71045; 83036; 85025

== ENCOUNTER → 2022-02-23 | Outpatient (CLI) | payer MEDICARE ==
[2022-02-23 13:51] VITALS: BP 144/84; PULSE 66; RESP 18; TEMP 98.2
--- NOTE | 2022-02-23 14:14 | P.GSHP ---
History of Present Illness H&P Date: 02/23/22 Chief Complaint: problems with breast implants Vicky is a 66 year old white female seen in consultation for Dr. Ardon regarding a possible ruptured right breast implant. She states the implants were placed over 20 years ago and the right implant changed contour about 5 years ago. She does not have any pain. The left side is not bothering her. She does not know if hte implants are saline or silicone. Does not complain of any lumps masses or nodules of concern in either breast. She does not complain of any nipple discharge or skin changes. She has had bilateral implants at 18 and posed in [employer]. She had them done again in 1979 and these are the ones she has now. caffiene: none nicotine: none chocolate: occasional hormones: none BCP: less than 5 years Family History: brother: of rhabdomyosarcoma maternal aunt: breast cancer metastatic Hormal history: Menarche: 12 G0 menopause: 50s hormones: none BCP:none Surgical history: Breast implants placed twice the last was in approximately 1979 multiple knee left side 6 times, right knee 2 times; knee replacements Medical History: panic attacks Social History: nicotine: none alcohol: none drugs: in the past - Constitutional Constitutional: Denies chills, Denies fever - EENT Eyes: denies blurred vision, denies pain Ears: bilateral: decreased hearing, deny: tinnitus Ears, nose, mouth and throat: Denies headache, Denies sore throat - Breasts Breasts: bilateral: as per HPI - Cardiovascular Cardiovascular: Denies chest pain, Denies shortness of breath - Respiratory Respiratory: Denies cough, Denies 7 - Gastrointestinal Gastrointestinal: Denies abdominal pain, Denies diarrhea, Denies nausea, Denies vomiting - Genitourinary (Female) Genitourinary: Denies dysuria, Denies hematuria - Menstruation Menstruation: Reports postmenopausal - Musculoskeletal Musculoskeletal: Reports as per HPI - Integumentary Integumentary: Denies pruritus, Denies rash - Neurological Neurological: Denies numbness, Denies weakness - Psychiatric Psychiatric: Reports anxiety - Endocrine Endocrine: Reports weight change, Denies fatigue - Hematologic/Lymphatic Comment: none - Allergic/Immunologic Allergic/Immunologic: Reports as per HPI Past Medical History Past Medical History: Hypertension, Osteoarthritis (OA) Additional Past Medical History / Comment(s): uses walker, left leg in knee immobilizer. Recent injury to left knee states "knee gave out", narrow esophagus History of Any Multi-Drug Resistant Organisms: None Reported Past Surgical History: Joint Replacement Additional Past Surgical History / Comment(s): left knee replacement, and repair, right knee replacement and revision, ruptured ovarian cyst repair Past Anesthesia/Blood Transfusion Reactions: No Reported Reaction Additional Past Anesthesia/Blood Transfusion Reaction / Comment(s): no problems with prior blood transfusion Past Psychological History: Anxiety Additional Psychological History / Comment(s): Sees Dr Moreland. 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,states "saw people that were not there, but with meds no further problems." Smoking Status: Never smoker Past Alcohol Use History: None Reported Past Drug Use History: None Reported - Past Family History Mother Family Medical History: No Reported History Father Family Medical History: Cancer Additional Family Medical History / Comment(s): jaw and pancreatic CA Medications and Allergies Home Medications Medication Instructions Recorded Confirmed Type risperiDONE [RisperDAL] 1 mg PO BID 07/25/17 01/19/20 History ALPRAZolam [ALPRAZolam XR] 2 mg PO BID 02/23/22 02/23/22 History Citalopram Hydrobromide 20 mg PO BID 02/23/22 02/23/22 History [Citalopram HBr] Donepezil [Aricept] 5 mg PO HS 02/23/22 02/23/22 History Memantine HCl 10 mg PO BID 02/23/22 02/23/22 History Propranolol HCl [Propranolol HCl 120 mg PO DAILY 02/23/22 02/23/22 History ER] Trihexyphenidyl HCl 5 mg PO BID 02/23/22 02/23/22 History traZODone HCL 150 mg PO HS 02/23/22 02/23/22 History Allergies Allergy/AdvReac Type Severity Reaction Status Date / Time acetaminophen [From [place]] Allergy Hallucinati Verified 02/23/22 13:52 ons codeine Allergy Hallucinati Verified 02/23/22 13:52 ons hydrocodone [From [place]] Allergy Hallucinati Verified 02/23/22 13:52 ons Surgical - Exam Vital Signs Temp Pulse Resp BP Pulse Ox 98.2 F 66 18 144/84 100 02/23/22 13:48 02/23/22 13:48 02/23/22 13:48 02/23/22 13:48 02/23/22 13:48 BMI: 28 - General no distress - Eyes normal ocular movement - Neck trachea midline - Respiratory normal respiratory effort, clear to auscultation - Cardiovascular Rhythm: regular Heart Sounds: normal: S1, S2 - Abdomen Abdomen: soft, non tender, no guarding, no rigid, no rebound - Integumentary normal turgor, dark nevis right breast - Neurologic no disoriented, no combative - Musculoskeletal slow gait - Psychiatric oriented to time, oriented to person, oriented to place, speech is normal, memory intact Breast Exam: BRA: 36D inspection: Symmetrical related to probable ruptured implant, bilateral grade 3 ptosis Palpation: Right breast: Probable ruptured implant implant appears to be high on the chest wall and is asymmetric to the contralateral side examination of the breast itself does not reveal any dominant masses or nodules of concern Right axilla: No adenopathy of concern Left breast: Appears to have displaced implant, no dominant masses or nodules of concern and the breast tissue itself Left axilla: No adenopathy of concern Results no mammograms recently for at least 5 years Assessment and Plan Assessment: Impression: Probable ruptured implant on the right side questionably on the left, asymmetry causing distress for the patient Dark nevus right breast panic attacks Plan: Breast MRI to evaluate for rupture/ follow up after MRI or mammogram CC: DR. Ardon
== END ==
LOC: WWCWWP 13:32
PROVIDERS: ATTEND Surgery
DX: N64.89 Other specified disorders of breast (principal); D22.5 Melanocytic nevi of trunk; F41.0 Panic disorder [episodic paroxysmal anxiety]; I10 Essential (primary) hypertension; M19.90 Unspecified osteoarthritis, unspecified site; Z79.899 Other long term (current) drug therapy; Z88.6 Allergy status to analgesic agent; Z88.5 Allergy status to narcotic agent

== ENCOUNTER → 2022-03-24 | Outpatient (CLI) | payer MEDICARE ==
--- NOTE | 2022-03-30 10:51 | BMR ---
EXAMINATION TYPE: MR breast BILAT wo con DATE OF EXAM: 03/24/2022 COMPARISON: Also a 3-D mammogram March 16, 2022 and older outside mammograms thru 2017. HISTORY: Rt side breast implant rupture TECHNIQUE: A series of fat and water weighted images in the long and short axis views of both breasts are obtained in conjunction with dynamic contrast MRI with subtraction technique. FINDINGS: Exam suboptimal due to poor quality of images obtained. Heterogeneously dense fibroglandula r tissue bilaterally is present. Implant findings are symmetric and show linear areas of low signal b ilaterally. No extracapsular silicone involvement is identified bilaterally. No abnormal skin thicken ing is seen. No suspicious axillary adenopathy. Small focus of susceptibility artifact superior to th e posterior aspect right breast implant noted axial image 141 series 401. IMPRESSION: MRI findings suggest long-standing intracapsular rupture bilaterally. No MRI evidence for extracapsular rupture bilaterally.
== END | disposition home or self-care (01) ==
LOC: RADMRIMAIN 14:07
PROVIDERS: ATTEND Surgery
DX: T85.49XA Other mechanical complication of breast prosthesis and implant, initial encounter (principal)
CPT/HCPCS: 77047

== ENCOUNTER → 2022-03-31 | Outpatient (CLI) | payer MEDICARE ==
[2022-03-31 12:14] VITALS: BP 150/78; PULSE 56; RESP 16; TEMP 98.4
--- NOTE | 2022-03-31 12:46 | P.PN ---
Progress Note - Text Progress Note Date: 03/31/22 Vicky presents today for results of the breast MRI. The MRI findings suggest long-standing intracapsular rupture bilaterally. At this point the patient is not driving any cosmetic benefit from the implants. She is concerned because she is uncertain if these are saline or silicone. She would like to have these removed. The patient also has a dark nevus on the right breast and resection of this is recommended in the office. Plan: Resection of bilateral ruptured implants Resection of nevus of the right breast in the office CC: DR. Martinez
== END ==
LOC: WWCWWP 11:36
PROVIDERS: ATTEND Surgery
DX: T85.49XA Other mechanical complication of breast prosthesis and implant, initial encounter (principal); Z88.6 Allergy status to analgesic agent; Z88.5 Allergy status to narcotic agent

== ENCOUNTER → 2022-06-02 | Outpatient (CLI) | payer MEDICARE ==
[2022-06-02 13:58] VITALS: BP 127/73; PULSE 69; RESP 17; TEMP 98.9
--- NOTE | 2022-06-02 14:08 | P.PN ---
Subjective Progress Note Date: 06/02/22 Principal diagnosis: bilateral breast ruptured implants Vicky is a 66 year old white female seen in consultation for Dr. Martinez regarding a possible ruptured right breast implant. She states the implants were placed over 20 years ago and the right implant changed contour about 5 years ago. She does not have any pain. The left side is not bothering her. She does not know if the implants are saline or silicone. Does not complain of any lumps masses or nodules of concern in either breast. She does not complain of any nipple discharge or skin changes. She has had bilateral implants at 18 and posed in [employer]. She had them done again in 1979 and these are the ones she has now. Bilateral MRI on 03-16-22, findings suggest long-standing intracapsular ruptures bilaterally. caffiene: none nicotine: none chocolate: occasional hormones: none BCP: less than 5 years Family History: brother: of rhabdomyosarcoma maternal aunt: breast cancer metastatic Hormal history: Menarche: 12 G0 menopause: 50s hormones: none BCP:none Surgical history: Breast implants placed twice the last was in approximately 1979 multiple knee left side 6 times, right knee 2 times; knee replacements Medical History: panic attacks Social History: nicotine: none alcohol: none drugs: in the past - Constitutional Constitutional: Denies chills, Denies fever - EENT Eyes: denies blurred vision, denies pain Ears: bilateral: decreased hearing, deny: tinnitus Ears, nose, mouth and throat: Denies headache, Denies sore throat - Breasts Breasts: bilateral: as per HPI - Cardiovascular Cardiovascular: Denies chest pain, Denies shortness of breath - Respiratory Respiratory: Denies cough - Gastrointestinal Gastrointestinal: Denies abdominal pain, Denies diarrhea, Denies nausea, Denies vomiting - Genitourinary (Female) Genitourinary: Denies dysuria, Denies hematuria - Menstruation Menstruation: Reports postmenopausal - Musculoskeletal Musculoskeletal: Reports as per HPI - Integumentary Integumentary: Denies pruritus, Denies rash - Neurological Neurological: Denies numbness, Denies weakness - Psychiatric Psychiatric: Reports anxiety - Endocrine Endocrine: Reports weight change, Denies fatigue - Hematologic/Lymphatic Comment: none - Allergic/Immunologic Allergic/Immunologic: Reports as per HPI Past Medical History Past Medical History: Hypertension, Osteoarthritis (OA) Additional Past Medical History / Comment(s): uses walker, left leg in knee immobilizer. Recent injury to left knee states "knee gave out", narrow esophagus History of Any Multi-Drug Resistant Organisms: None Reported Past Surgical History: Joint Replacement Additional Past Surgical History / Comment(s): left knee replacement, and repair, right knee replacement and revision, ruptured ovarian cyst repair Past Anesthesia/Blood Transfusion Reactions: No Reported Reaction Additional Past Anesthesia/Blood Transfusion Reaction / Comment(s): no problems with prior blood transfusion Past Psychological History: Anxiety Additional Psychological History / Comment(s): Sees Dr Moreland. 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,states "saw people that were not there, but with meds no further problems." Smoking Status: Never smoker Past Alcohol Use History: None Reported Past Drug Use History: None Reported - Past Family History Mother Family Medical History: No Reported History Father Family Medical History: Cancer Additional Family Medical History / Comment(s): jaw and pancreatic CA Medications and Allergies Home Medications Medication Instructions Recorded Confirmed Type risperiDONE [RisperDAL] 1 mg PO BID 07/25/17 01/19/20 History ALPRAZolam [ALPRAZolam XR] 2 mg PO BID 02/23/22 02/23/22 History Citalopram Hydrobromide 20 mg PO BID 02/23/22 02/23/22 History [Citalopram HBr] Donepezil [Aricept] 5 mg PO HS 02/23/22 02/23/22 History Memantine HCl 10 mg PO BID 02/23/22 02/23/22 History Propranolol HCl [Propranolol HCl 120 mg PO DAILY 02/23/22 02/23/22 History ER] Trihexyphenidyl HCl 5 mg PO BID 02/23/22 02/23/22 History traZODone HCL 150 mg PO HS 02/23/22 02/23/22 History Allergies Allergy/AdvReac Type Severity Reaction Status Date / Time acetaminophen [From [place]] Allergy Hallucinati Verified 02/23/22 13:52 ons codeine Allergy Hallucinati Verified 02/23/22 13:52 ons hydrocodone [From [place]] Allergy Hallucinati Verified 02/23/22 13:52 ons Objective - Exam BMI: 28.1 - Constitutional General appearance: Present: cooperative - EENT Eyes: Present: EOMI - Neck Neck: Present: normal ROM - Respiratory Respiratory: bilateral: CTA - Cardiovascular Rhythm: regular Heart sounds: normal: S1, S2 - Gastrointestinal General gastrointestinal: Present: soft - Integumentary Integumentary: Present: normal turgor - Musculoskeletal Musculoskeletal: Present: gait normal - Psychiatric Psychiatric: Present: A&O x's 3, appropriate affect, intact judgment & insight - Additional findings Additional findings: Breast Exam: BRA: 36D inspection: asymmetrical related to probable ruptured implant, bilateral grade 3 ptosis Palpation: Right breast: Probable ruptured implant implant appears to be high on the chest wall and is asymmetric to the contralateral side examination of the breast itself does not reveal any dominant masses or nodules of concern Right axilla: No adenopathy of concern Left breast: Appears to have displaced implant, no dominant masses or nodules of concern and the breast tissue itself Left axilla: No adenopathy of concern Assessment and Plan Assessment: Impression: Bilateral intracapsular rupture of implants Bilateral asymmetry of the breast secondary to displaced implants Fibrocystic breast changes Dark nevus right breast panic attacks Plan: Removal bilateral breast implants Removal bilateral capsules from breast implants Removal of dark nevus right breast in the office following the breast implant removal clearance Dr. Martinez CC: DR. Martinez
== END | disposition home or self-care (01) ==
LOC: WWCWWP 13:44
PROVIDERS: ATTEND Surgery
DX: Z53.9 Procedure and treatment not carried out, unspecified reason (principal)

== ENCOUNTER 2022-06-20 10:29 | Day surgery (SDC) | payer MEDICARE ==
[2022-06-19 09:59] VITALS: BMI 27.3
[~2022-06-20 10:29] MED LIST changes: -ACETAMINOPHEN TAB 500 MG TAB PO ONE; -DEXAMETHASONE SOD PHOSPHATE 10 MG/ML 1 ML VIAL IV ONE; +DEXAMETHASONE SOD PHOSPHATE 4 MG/ML 1 ML VIAL IV ONE; +HEPARIN SODIUM,PORCINE/PF 5,000 UNIT/0.5 ML SYRINGE SQ PRN; +HYDROmorphone 0.5 MG/0.5 ML SYRINGE IVP PRN; +LACTATED RINGERS 1,000 ML IV SCH; -MELOXICAM 7.5 MG TAB PO ONE; -MIDAZOLAM 2 MG/2 ML VIAL IV PRN; -MORPHINE SULFATE 4 MG/ML SYRINGE IV PRN; +Pre Op ABX Message 1 EACH MISC MISCELLANE ONE; -SCOPOLAMINE 1.5MG/72HR PATCH TRANSDERM ONE; -TRANEXAMIC ACID 1,000 MG in SODIUM CHLORIDE 0.9% 50 ML IVPB ONE; -ceFAZolin IN SWFI 2 GM/20 ML SYRINGE IVP ONE
[2022-06-20 11:51] LABS: Basophils % (A) 0 %; Eosinophils # (A) 0.1 k/uL (0-0.7); Eosinophils % (A) 1 %; HCT 45.1 % (34.0-46.0); Lymphocytes # (A) 1.4 k/uL (1.0-4.8); Lymphocytes % (A) 17 %; MCH 29.5 pg (25.0-35.0); MCHC 33.3 g/dL (31.0-37.0); MCV 88.7 fL (80.0-100.0); Mean Platelet Volume 8.1; Monocytes # (A) 0.6 k/uL (0-1.0); Monocytes % (A) 7 %; Neutrophils % (A) 73 %; Platelet Count 161 k/uL (150-450); RBC 5.08 m/uL (3.80-5.40); RDW 13.4 % (11.5-15.5); WBC 8.2 k/uL (3.8-10.6)
[2022-06-20] MEDS ORDERED: MIDAZOLAM 2 MG/2 ML VIAL IVP ONE (11:58)
[2022-06-20] MEDS ORDERED: HYDROmorphone (PF) 1 MG/ML ONE (12:38)
[2022-06-20] MEDS ORDERED: PROPOFOL 10 MG/ML 20 ML VIAL IV ONE (12:38)
[2022-06-20] MEDS ORDERED: fentaNYL (PF) 50 MCG/ML 2 ML AMP ONE (12:38)
[2022-06-20] MEDS ORDERED: SUCCINYLCHOLINE CHLORIDE 200 MG/10 ML VIAL IV ONE (12:38)
[2022-06-20] MEDS ORDERED: GLYCOPYRROLATE 0.2 MG/ML 2 ML VIAL ONE (12:38)
[2022-06-20] MEDS ORDERED: LIDOCAINE 2% INJ 20 MG/ML (2 ML VIAL) ONE (12:38)
[2022-06-20] MEDS ORDERED: SODIUM CHLORIDE 0.9% 50 ML with ceFAZolin 2,000 MG IV ONE ×2 (12:42)
[2022-06-20] MEDS ORDERED: LACTATED RINGERS 1,000 ML IV ONE (13:42)
--- NOTE | 2022-06-20 15:10 | P.OP ---
Date of Procedure: 06/20/22 Preoperative Diagnosis: Bilateral intracapsular rupture of breast implants Postoperative Diagnosis: Same Procedure(s) Performed: Bilateral implant removal with bilateral removal of implant capsules Anesthesia: SEBLE Surgeon: Chioma Whitlock Estimated Blood Loss (ml): 20 IV fluids (ml): 800 Pathology: other (Bilateral breast implants/bilateral capsules of breast implants) Condition: stable Disposition: same day Indications for Procedure: Bilateral intracapsular rupture of breast implants Operative Findings: Fibrofatty breast tissue Description of Procedure: The patient is a 66-year-old white female with MRI findings suspicious for a long-standing intracapsular breast implant rupture bilaterally. The implants are asymmetric and the patient wishes them to be removed. The patient has r ecently been taking Motrin and I discussed this with her and herself as to increased risk of bleeding. Additionally I have contacted hematology as well as pharmacy and they felt that it would be okay to proceed with the removal of the implants. The patient and her wish to proceed. The patient was brought to the operative suite and following induction of anesthesia both breasts were prepped and draped in a sterile fashion. The right breast was approached initially. An incision was made in the inferior aspect of the breast 7 cm from the inframammary area area and proximally 7 cm from the inferior areolar border. It extended 5 cm medially and 6 cm laterally. The area of the breast parenchyma was entered. The pectoralis muscle was identified and there were thrombosed vessels apparent on the muscle. The muscle was dissected off the capsule of the implant. Dissection was performed along the capsule of the implant superior inferior medial and laterally. The capsule was entered and the implant extruded during the process. Posterior dissection was onto the area of the chest wall. The entire capsule was removed. The wound was irrigated. After assured that hemostasis was attained a SOHAN drain was placed and secured using a nylon suture. Surgicel in powder form was placed. The deep tissues were closed using 3-0 Vicryl suture. The skin was closed using a 3-0 Vicryl running suture as well as a 4-0 Monocryl. The left side was approached.An incision was made in the inferior aspect of the breast 7 cm from the inframammary area area and proximally 7 cm from the inferior areolar border. It extended 5 cm medially and 6 cm laterally. The area of the breast parenchyma was entered. The pectoralis muscle was identified and there were thrombosed vessels apparent on the muscle. The muscle on the capsule the implant was identified. Dissection was performed along the capsule of the implant superior inferior medial and laterally. The capsule on this side was able to be kept intact and the implant was removed with the capsule. Posterior dissection was onto the area of the chest wall. The entire capsule was removed. The wound was irrigated. Surgicel in powder form was placed. After w kristenere assured that hemostasis was attained a SOHAN drain was placed and secured using a nylon suture. The deep tissues were closed using 3-0 Vicryl suture. The skin was closed using a 3-0 Vicryl running suture as well as a 4-0 Monocryl. Steri-Strips were applied. All instrument and sponge counts were correct at the end of the case. The patient tolerated the procedure in stable condition.
--- NOTE | 2022-06-20 15:12 | P.DS ---
Providers Attending physician: Chioma Whitlock Primary care physician: Lilly Martinez Plan - Discharge Summary Discharge Rx Participant: Yes New Discharge Prescriptions: No Action risperiDONE [RisperDAL] 1 mg PO BID Citalopram Hydrobromide [Citalopram HBr] 20 mg PO BID ALPRAZolam [ALPRAZolam XR] 2 mg PO BID Ibuprofen [Motrin] 800 mg PO DAILY Trihexyphenidyl HCl 5 mg PO BID Propranolol HCl [Propranolol HCl ER] 120 mg PO PC-LUNCH Memantine HCl 10 mg PO BID Donepezil [Aricept] 5 mg PO HS traZODone HCL 150 mg PO HS Discharge Medication List risperiDONE [RisperDAL] 1 mg PO BID 07/25/17 [History] ALPRAZolam [ALPRAZolam XR] 2 mg PO BID 02/23/22 [History] Citalopram Hydrobromide [Citalopram HBr] 20 mg PO BID 02/23/22 [History] Donepezil [Aricept] 5 mg PO HS 02/23/22 [History] Memantine HCl 10 mg PO BID 02/23/22 [History] Propranolol HCl [Propranolol HCl ER] 120 mg PO PC-LUNCH 02/23/22 [History] Trihexyphenidyl HCl 5 mg PO BID 02/23/22 [History] traZODone HCL 150 mg PO HS 02/23/22 [History] Ibuprofen [Motrin] 800 mg PO DAILY 06/20/22 [History] Follow up Appointment(s)/Referral(s): Chioma Whitlock MD [STAFF PHYSICIAN] - 06/23/22 3:20 pm Activity/Diet/Wound Care/Special Instructions: NO MOTRIN UNTIL SEEN BY DR. VEGA BUTTERFIELD IN THE OFFICE. We will bra at all times Teach to drain and record SOHAN output, drain and recorded twice a day and as needed Do not drive until seen by Dr. Vega Restrepo shower after 48 hours Discharge Disposition: HOME SELF-CARE
[2022-06-20 15:36] VITALS: TEMP 98.6
[2022-06-20 16:45] VITALS: RESP 18
[2022-06-20 17:15] VITALS: BP 115/78; PULSE 78
== END 2022-06-20 17:16 | disposition home or self-care (01) ==
LOC: OR 10:29
PROVIDERS: ATTEND Surgery
DX: T85.49XA Other mechanical complication of breast prosthesis and implant, initial encounter (principal); I10 Essential (primary) hypertension; M19.90 Unspecified osteoarthritis, unspecified site; K21.9 Gastro-esophageal reflux disease without esophagitis; F31.9 Bipolar disorder, unspecified; Z96.659 Presence of unspecified artificial knee joint; F41.9 Anxiety disorder, unspecified; Z80.8 Family history of malignant neoplasm of other organs or systems; Z79.899 Other long term (current) drug therapy
CPT/HCPCS: 85025; 19371; J2250; J0330; J1100; J2405; J0690; J3010; J1170; J2704; J1644; J2001

== ENCOUNTER 2022-06-21 09:15 | Observation (INO) | payer MEDICARE ==
--- NOTE | 2022-06-21 11:51 | XR ---
EXAMINATION TYPE: XR chest 2V DATE OF EXAM: 06/21/2022 COMPARISON: 10/23/2017 HISTORY: 66-year-old female with nausea, vomiting TECHNIQUE: PA and lateral views FINDINGS: Bilateral breast tissue expanders or wound VAC's are noted. Large calcified granulomas AP window and left hilum relating to prior granulomatous disease. Heart normal size. Strandy atelectasis in the low er lungs. No consolidation or pleural effusion seen. IMPRESSION: Evidence of prior granulomatous disease. Either bilateral wound vacs or breast tissue expanders. No a cute process seen.
--- NOTE | 2022-06-21 11:53 | XR ---
EXAMINATION TYPE: XR KUB DATE OF EXAM: 06/21/2022 Comparison: None Clinical History: 66-year-old female with nausea, vomiting Findings: No evidence for free intraperitoneal air. No dilated small bowel or air-fluid levels. Scattered air and stool is present in the colon extending distally to the rectum. Mild overall stool burden. Suspect calcified granuloma within the lower pole of the spleen. Possible calcifications in the regio n of the pancreas or upper abdominal lymph nodes. Impression: 1. No evidence for free air or bowel obstruction. Mild stool burden. 2. Some calcifications along the midline upper abdomen may be pancreatic calcifications. Query any hi story of chronic pancreatitis.
[2022-06-21 12:08] LABS: Basophils % (A) 0 %; Eosinophils # (A) 0.1 k/uL (0-0.7); Eosinophils % (A) 0 %; HCT 39.2 % (34.0-46.0); Lymphocytes # (A) 1.2 k/uL (1.0-4.8); Lymphocytes % (A) 7 %; MCH 29.3 pg (25.0-35.0); MCHC 33.2 g/dL (31.0-37.0); Mean Platelet Volume 7.8; Monocytes % (A) 11 %; Neutrophils % (A) 79 %; Platelet Count 163 k/uL (150-450); RBC 4.46 m/uL (3.80-5.40); RDW 13.4 % (11.5-15.5); WBC 17.7 k/uL (3.8-10.6)
[2022-06-21] MEDS ORDERED: ONDANSETRON 4 MG/2 ML VIAL IVP STA (12:08)
[2022-06-21] MEDS ORDERED: SODIUM CHLORIDE 0.9% 500 ML 500 ML IV STA (12:08)
[2022-06-21 12:27] LABS: Calcium 9.2 mg/dL (8.4-10.2); Magnesium 1.8 mg/dL (1.6-2.3); Total Protein 6.6 g/dL (6.3-8.2)
[2022-06-21 12:34] LABS: Appearance,Urine Clear (Clear); Bilirubin,Urine Negative (Negative); Blood,Urine Negative (Negative); Color,Urine Yellow; Glucose,Urine (UA) Negative (Negative); Ketones,Urine 1+ (Negative); Leukocyte Esterase,Urine Trace (Negative); Mucus,Urine Many /hpf; Nitrite,Urine Negative (Negative); Protein,Urine Trace (Negative); RBC,Urine <1 /hpf (0-5); Specific Gravity,Urine 1.024 (1.001-1.035); Squamous Epithelial Cell,Urine 2 /hpf (0-4); Urobilinogen,Urine <2.0 mg/dL (<2.0); WBC,Urine 2 /hpf (0-5)
[2022-06-21] MEDS ORDERED: PROCHLORPERAZINE INJ 10 MG/2 ML VIAL IVP STA (12:54)
[2022-06-21] MEDS ORDERED: SODIUM CHLORIDE 0.9% 1,000 ML IV STA (12:54)
--- NOTE | 2022-06-21 14:25 | ED ---
Recheck HPI - General Chief Complaint: Recheck/Abnormal Lab/Rx Stated Complaint: post op Time Seen by Provider: 06/21/22 09:26 Source: patient, RN notes reviewed Mode of arrival: wheelchair Limitations: no limitations - History of Present Illness Initial Comments: 66-year-old female who had breast implants removed yesterday who presents with complaints of nausea vomiting some bleeding from the right incision site decrease her own take no fevers chills sweats or other symptoms. - Related Data Home Medications Medication Instructions Recorded Confirmed risperiDONE [RisperDAL] 1 mg PO BID 07/25/17 06/20/22 ALPRAZolam [ALPRAZolam XR] 2 mg PO BID 02/23/22 06/20/22 Citalopram Hydrobromide 20 mg PO BID 02/23/22 06/20/22 [Citalopram HBr] Donepezil [Aricept] 5 mg PO HS 02/23/22 06/20/22 Memantine HCl 10 mg PO BID 02/23/22 06/20/22 Propranolol HCl [Propranolol HCl 120 mg PO PC-LUNCH 02/23/22 06/20/22 ER] Trihexyphenidyl HCl 5 mg PO BID 02/23/22 06/20/22 traZODone HCL 150 mg PO HS 02/23/22 06/20/22 Ibuprofen [Motrin] 800 mg PO DAILY 06/20/22 06/20/22 Allergies Allergy/AdvReac Type Severity Reaction Status Date / Time No Known Allergies Allergy Verified 06/21/22 10:10 Review of Systems ROS Statement: Those systems with pertinent positive or pertinent negative responses have been documented in the HPI. ROS Other: All systems not noted in ROS Statement are negative. Past Medical History Past Medical History: Hypertension, Osteoarthritis (OA) Additional Past Medical History / Comment(s): uses walker, left leg in knee immobilizer. Recent injury to left knee states "knee gave out", narrow esophagus History of Any Multi-Drug Resistant Organisms: None Reported Past Surgical History: Joint Replacement Additional Past Surgical History / Comment(s): left knee replacement, and repair, right knee replacement and revision, ruptured ovarian cyst repair Past Anesthesia/Blood Transfusion Reactions: No Reported Reaction Additional Past Anesthesia/Blood Transfusion Reaction / Comment(s): no problems with prior blood transfusion Past Psychological History: Anxiety Smoking Status: Never smoker Past Alcohol Use History: None Reported Past Drug Use History: None Reported - Past Family History Mother Family Medical History: No Reported History Father Family Medical History: Cancer Additional Family Medical History / Comment(s): Jaw and pancreatic cancer. General Exam - General Exam Comments Initial Comments: This is a well-developed well-nourished awake alert oriented 4 female Limitations: no limitations General appearance: alert, anxious Head exam: Present: atraumatic, normocephalic, normal inspection Eye exam: Present: normal appearance, PERRL, EOMI. Absent: scleral icterus, conjunctival injection, periorbital swelling ENT exam: Present: mucous membranes dry Neck exam: Present: normal inspection, full ROM. Absent: tenderness, meningismus, lymphadenopathy Respiratory exam: Present: normal lung sounds bilaterally, other (Examination of the incision site C left one appears be intact with drainage and the bulb the right one appears to be nonfunctional at this time there is some evidence of hematoma with drainage. No localized evidence of infectious process.). Absent: respiratory distress, wheezes, rales, rhonchi, stridor Cardiovascular Exam: Present: regular rate, normal rhythm, normal heart sounds. Absent: systolic murmur, diastolic murmur, rubs, gallop, clicks GI/Abdominal exam: Present: soft, normal bowel sounds. Absent: distended, tenderness, guarding, rebound, rigid Extremities exam: Present: normal inspection, full ROM, normal capillary refill. Absent: tenderness, pedal edema, joint swelling, calf tenderness Back exam: Present: normal inspection Neurological exam: Present: alert, oriented X3, CN II-XII intact Psychiatric exam: Present: normal affect, normal mood Skin exam: Present: warm, dry, intact, normal color. Absent: rash Course Vital Signs 06/21/22 10:07 Temperature 98 F Pulse Rate 96 Respiratory 18 Rate Blood Pressure 130/68 O2 Sat by Pulse 100 Oximetry Medical Decision Making - Medical Decision Making The patient was seen by Dr. Vega Brewer emergency department due to the persistent nausea vomiting patient will be admitted some hematoma was removed patient tolerated this well she still nauseated. Dr. Noel will be consulted - Lab Data Result diagrams: 06/21/22 11:50 06/21/22 11:50 Lab Results 06/21/22 06/21/22 06/21/22 Range/Units 11:50 11:50 11:50 WBC 17.7 H (3.8-10.6) k/uL RBC 4.46 (3.80-5.40) m/uL Hgb 13.0 (11.4-16.0) gm/dL Hct 39.2 (34.0-46.0) % MCV 88.0 (80.0-100.0) fL MCH 29.3 (25.0-35.0) pg MCHC 33.2 (31.0-37.0) g/dL RDW 13.4 (11.5-15.5) % Plt Count 163 (150-450) k/uL MPV 7.8 Neutrophils % 79 % Lymphocytes % 7 % Monocytes % 11 % Eosinophils % 0 % Basophils % 0 % Neutrophils # 14.0 H (1.3-7.7) k/uL Lymphocytes # 1.2 (1.0-4.8) k/uL Monocytes # 2.0 H (0-1.0) k/uL Eosinophils # 0.1 (0-0.7) k/uL Basophils # 0.0 (0-0.2) k/uL Sodium 137 (137-145) mmol/L Potassium 4.0 (3.5-5.1) mmol/L Chloride 102 (98-107) mmol/L Carbon Dioxide 22 (22-30) mmol/L Anion Gap 13 mmol/L BUN 20 H (7-17) mg/dL Creatinine 0.80 (0.52-1.04) mg/dL Est GFR (CKD-EPI)AfAm 88 (>60 ml/min/1.73 sqM) Est GFR (CKD-EPI)NonAf 77 (>60 ml/min/1.73 sqM) Glucose 125 H (74-99) mg/dL Calcium 9.2 (8.4-10.2) mg/dL Magnesium 1.8 (1.6-2.3) mg/dL Total Bilirubin 1.0 (0.2-1.3) mg/dL AST 24 (14-36) U/L ALT 17 (4-34) U/L Alkaline Phosphatase 86 (38-126) U/L Creatine Kinase 171 H (30-135) U/L Troponin I (0.000-0.034) ng/mL Total Protein 6.6 (6.3-8.2) g/dL Albumin 4.0 (3.5-5.0) g/dL Lipase 27 (23-300) U/L Urine Color Yellow Urine Appearance Clear (Clear) Urine pH 6.0 (5.0-8.0) Ur Specific [place] 1.024 (1.001-1.035) Urine Protein Trace H (Negative) Urine Glucose (UA) Negative (Negative) Urine Ketones 1+ H (Negative) Urine Blood Negative (Negative) Urine Nitrite Negative (Negative) Urine Bilirubin Negative (Negative) Urine Urobilinogen <2.0 (<2.0) mg/dL Ur Leukocyte Esterase Trace H (Negative) Urine RBC <1 (0-5) /hpf Urine WBC 2 (0-5) /hpf Ur Squamous Epith Cells 2 (0-4) /hpf Urine Mucus Many H (None) /hpf 06/21/22 Range/Units 11:50 WBC (3.8-10.6) k/uL RBC (3.80-5.40) m/uL Hgb (11.4-16.0) gm/dL Hct (34.0-46.0) % MCV (80.0-100.0) fL MCH (25.0-35.0) pg MCHC (31.0-37.0) g/dL RDW (11.5-15.5) % Plt Count (150-450) k/uL MPV Neutrophils % % Lymphocytes % % Monocytes % % Eosinophils % % Basophils % % Neutrophils # (1.3-7.7) k/uL Lymphocytes # (1.0-4.8) k/uL Monocytes # (0-1.0) k/uL Eosinophils # (0-0.7) k/uL Basophils # (0-0.2) k/uL Sodium (137-145) mmol/L Potassium (3.5-5.1) mmol/L Chloride (98-107) mmol/L Carbon Dioxide (22-30) mmol/L Anion Gap mmol/L BUN (7-17) mg/dL Creatinine (0.52-1.04) mg/dL Est GFR (CKD-EPI)AfAm (>60 ml/min/1.73 sqM) Est GFR (CKD-EPI)NonAf (>60 ml/min/1.73 sqM) Glucose (74-99) mg/dL Calcium (8.4-10.2) mg/dL Magnesium (1.6-2.3) mg/dL Total Bilirubin (0.2-1.3) mg/dL AST (14-36) U/L ALT (4-34) U/L Alkaline Phosphatase (38-126) U/L Creatine Kinase (30-135) U/L Troponin I <0.012 (0.000-0.034) ng/mL Total Protein (6.3-8.2) g/dL Albumin (3.5-5.0) g/dL Lipase (23-300) U/L Urine Color Urine Appearance (Clear) Urine pH (5.0-8.0) Ur Specific [place] (1.001-1.035) Urine Protein (Negative) Urine Glucose (UA) (Negative) Urine Ketones (Negative) Urine Blood (Negative) Urine Nitrite (Negative) Urine Bilirubin (Negative) Urine Urobilinogen (<2.0) mg/dL Ur Leukocyte Esterase (Negative) Urine RBC (0-5) /hpf Urine WBC (0-5) /hpf Ur Squamous Epith Cells (0-4) /hpf Urine Mucus (None) /hpf - EKG Data -: EKG Interpreted by Nd EKG shows normal: sinus rhythm EKG Comments: EKG shows sinus rhythm of 84. Interval 154 QRS duration 74 QT since QTC 339/380 related changes artifact present Disposition Clinical Impression: Intractable nausea and vomiting, Postoperative hematoma Disposition: ADMITTED IP TO THIS [facility] Condition: Stable Referrals: Lilly Martinez MD [Primary Care Provider] - 1-2 days Decision Date: 06/21/22 Decision Time: 14:00
[2022-06-21] MEDS ORDERED: ONDANSETRON 4 MG/2 ML VIAL IVP PRN (14:27)
[2022-06-21] MEDS ORDERED: HYDROmorphone 1 MG/ML 1 ML SYRINGE IVP PRN (14:27)
[2022-06-21] MEDS ORDERED: NALOXONE 0.4 MG/ML 1 ML VIAL IV PRN (14:27)
[2022-06-21] MEDS ORDERED: METOCLOPRAMIDE 5 MG/ML 2 ML VIAL IVP STA (14:30)
[2022-06-21] MEDS ORDERED: HYDROcodone/APAP 5-325MG 1 EACH TAB PO PRN (14:34)
--- NOTE | 2022-06-21 14:34 | P.GSHP ---
History of Present Illness H&P Date: 06/21/22 Chief Complaint: nause and vominting post op Vicky is a 66 postop day #1 bilateral breast implant removal. She was discharged home yesterday postprocedure but has had nausea and vomiting since her discharge. Additionally she has noticed some drainage in the inferior as pect of the right wound which is not draining from the SOHAN drain. Her pain control is reasonable. She was seen in the emergency department and approximately 200 mL of dark fluid was expressed from the area of the incision of the right implant removal site. Her SOHAN drain was stripped and is working at this time. She has serous dark drainage from the left implant SOHAN drain. - Constitutional Constitutional: Denies chills, Denies fever - EENT Eyes: denies blurred vision, denies pain Ears: bilateral: decreased hearing, deny: tinnitus Ears, nose, mouth and throat: Denies headache, Denies sore throat - Breasts Breasts: bilateral: as per HPI - Cardiovascular Cardiovascular: Denies chest pain, Denies shortness of breath - Respiratory Respiratory: Denies cough, Denies 7 - Gastrointestinal Gastrointestinal: Denies abdominal pain, Denies diarrhea, Denies nausea, Denies vomiting - Genitourinary (Female) Genitourinary: Denies dysuria, Denies hematuria - Menstruation Menstruation: Reports postmenopausal - Musculoskeletal Comment: Multiple knee surgeries - Integumentary Integumentary: Denies pruritus, Denies rash - Neurological Neurological: Denies numbness, Denies weakness - Psychiatric Psychiatric: Reports anxiety - Endocrine Endocrine: Denies fatigue, Denies weight change - Hematologic/Lymphatic Comment: Patient has used Motrin - Allergic/Immunologic Comment: pcn Past Medical History Past Medical History: Hypertension, Osteoarthritis (OA) Additional Past Medical History / Comment(s): uses walker, left leg in knee immobilizer. Recent injury to left knee states "knee gave out", narrow esophagus History of Any Multi-Drug Resistant Organisms: None Reported Past Surgical History: Joint Replacement Additional Past Surgical History / Comment(s): left knee replacement, and repair, right knee replacement and revision, ruptured ovarian cyst repair Past Anesthesia/Blood Transfusion Reactions: No Reported Reaction Additional Past Anesthesia/Blood Transfusion Reaction / Comment(s): no problems with prior blood transfusion Past Psychological History: Anxiety Smoking Status: Never smoker Past Alcohol Use History: None Reported Past Drug Use History: None Reported - Past Family History Mother Family Medical History: No Reported History Father Family Medical History: Cancer Additional Family Medical History / Comment(s): Jaw and pancreatic cancer. Medications and Allergies Home Medications Medication Instructions Recorded Confirmed Type risperiDONE [RisperDAL] 1 mg PO BID 07/25/17 06/20/22 History ALPRAZolam [ALPRAZolam XR] 2 mg PO BID 02/23/22 06/20/22 History Citalopram Hydrobromide 20 mg PO BID 02/23/22 06/20/22 History [Citalopram HBr] Donepezil [Aricept] 5 mg PO HS 02/23/22 06/20/22 History Memantine HCl 10 mg PO BID 02/23/22 06/20/22 History Propranolol HCl [Propranolol HCl 120 mg PO PC-LUNCH 02/23/22 06/20/22 History ER] Trihexyphenidyl HCl 5 mg PO BID 02/23/22 06/20/22 History traZODone HCL 150 mg PO HS 02/23/22 06/20/22 History Ibuprofen [Motrin] 800 mg PO DAILY 06/20/22 06/20/22 History Allergies Allergy/AdvReac Type Severity Reaction Status Date / Time No Known Allergies Allergy Verified 06/21/22 10:10 Surgical - Exam Vital Signs Temp Pulse Resp BP Pulse Ox 98 F 96 18 130/68 100 06/21/22 10:07 06/21/22 10:07 06/21/22 10:07 06/21/22 10:07 06/21/22 10:07 BMI: 26.6 - General nausea - Eyes normal ocular movement - Neck trachea midline - Respiratory normal respiratory effort, clear to auscultation - Cardiovascular Rhythm: regular Heart Sounds: normal: S1, S2 - Integumentary normal turgor - Neurologic no disoriented, no combative - Musculoskeletal normal gait, normal posture - Psychiatric oriented to time, oriented to person, oriented to place, speech is normal, memory intact Bilateral breast examination: Incision right breast SOHAN drain is not functioning there is some drainage of some serous dark fluid from the inferior aspect of the incision approximately 200 mL was expressed and the SOHAN drain was stripped and is working well at this time The incision appears to be clean and no Steri-Strips were applied Left breast: Incision clean and dry SOHAN functioning well dark serous drainage; approximately 20 mL at this time Results - Labs 06/21/22 11:50 06/21/22 11:50 Abnormal Lab Results - Last 24 Hours (Table) 06/21/22 06/21/22 06/21/22 Range/Units 11:50 11:50 11:50 WBC 17.7 H (3.8-10.6) k/uL Neutrophils # 14.0 H (1.3-7.7) k/uL Monocytes # 2.0 H (0-1.0) k/uL BUN 20 H (7-17) mg/dL Glucose 125 H (74-99) mg/dL Creatine Kinase 171 H (30-135) U/L Urine Protein Trace H (Negative) Urine Ketones 1+ H (Negative) Ur Leukocyte Esterase Trace H (Negative) Urine Mucus Many H (None) /hpf Diabetes panel 06/21/22 Range/Units 11:50 Sodium 137 (137-145) mmol/L Potassium 4.0 (3.5-5.1) mmol/L Chloride 102 (98-107) mmol/L Carbon Dioxide 22 (22-30) mmol/L BUN 20 H (7-17) mg/dL Creatinine 0.80 (0.52-1.04) mg/dL Glucose 125 H (74-99) mg/dL Calcium 9.2 (8.4-10.2) mg/dL AST 24 (14-36) U/L ALT 17 (4-34) U/L Alkaline Phosphatase 86 (38-126) U/L Total Protein 6.6 (6.3-8.2) g/dL Albumin 4.0 (3.5-5.0) g/dL Calcium panel 06/21/22 Range/Units 11:50 Calcium 9.2 (8.4-10.2) mg/dL Albumin 4.0 (3.5-5.0) g/dL Pituitary panel 06/21/22 Range/Units 11:50 Sodium 137 (137-145) mmol/L Potassium 4.0 (3.5-5.1) mmol/L Chloride 102 (98-107) mmol/L Carbon Dioxide 22 (22-30) mmol/L BUN 20 H (7-17) mg/dL Creatinine 0.80 (0.52-1.04) mg/dL Glucose 125 H (74-99) mg/dL Calcium 9.2 (8.4-10.2) mg/dL Adrenal panel 06/21/22 Range/Units 11:50 Sodium 137 (137-145) mmol/L Potassium 4.0 (3.5-5.1) mmol/L Chloride 102 (98-107) mmol/L Carbon Dioxide 22 (22-30) mmol/L BUN 20 H (7-17) mg/dL Creatinine 0.80 (0.52-1.04) mg/dL Glucose 125 H (74-99) mg/dL Calcium 9.2 (8.4-10.2) mg/dL Total Bilirubin 1.0 (0.2-1.3) mg/dL AST 24 (14-36) U/L ALT 17 (4-34) U/L Alkaline Phosphatase 86 (38-126) U/L Total Protein 6.6 (6.3-8.2) g/dL Albumin 4.0 (3.5-5.0) g/dL Assessment and Plan Assessment: Impression: Patient postop day #1 bilateral implant removal/nausea and vomiting Hematoma expressed right surgical site Plan: Admit patient for IV hydration, nausea medication Dressing changed and SOHAN drain stripped will follow this CBC in a.m. Consult Dr. Noel medical managment
[2022-06-21] MEDS: SODIUM CHLORIDE 0.9% 1,000 ML IV SCH ×2 (15:31→23:36)
[2022-06-21] MEDS: DEXTROSE 5%-0.45% NACL 1,000 ML IV SCH (15:37)
[2022-06-21] MEDS: LORazepam 0.5 MG TAB PO STA ×2 (17:44→17:49)
[2022-06-21] MEDS ORDERED: LORazepam 0.5 MG TAB PO STA (17:48)
[2022-06-21] MEDS ORDERED: LORazepam 0.5 MG TAB PO SCH (21:00)
[2022-06-21] MEDS: PROCHLORPERAZINE INJ 10 MG/2 ML VIAL IVP PRN (23:04)
[2022-06-21] MEDS: traZODone HCL 50 MG TAB PO SCH (23:35)
[2022-06-21] MEDS: DONEPEZIL 5 MG TAB PO SCH (23:36)
[2022-06-22] MEDS: DEXTROSE 5%-0.45% NACL 1,000 ML IV SCH ×3 (00:47→18:06)
[2022-06-22] MEDS: MEMANTINE 10 MG TAB PO SCH ×3 (00:48→19:08)
[2022-06-22] MEDS: CITALOPRAM HYDROBROMIDE 20 MG TAB PO SCH ×3 (00:48→22:50)
[2022-06-22] MEDS: risperiDONE 1 MG TAB PO SCH ×3 (00:49→19:09)
[2022-06-22] MEDS: HEPARIN SODIUM,PORCINE/PF 5,000 UNIT/0.5 ML SYRINGE SQ SCH ×3 (01:51→22:51)
[2022-06-22] MEDS: ALPRAZolam 1 MG TAB PO SCH ×5 (01:51→22:50)
[2022-06-22] MEDS: TRIHEXYPHENIDYL 2 MG TAB PO SCH ×3 (01:51→19:10)
[2022-06-22] MEDS: PROCHLORPERAZINE INJ 10 MG/2 ML VIAL IVP PRN (04:57)
[2022-06-22] MEDS: SODIUM CHLORIDE 0.9% 1,000 ML IV SCH ×3 (08:10→16:31)
[2022-06-22] MEDS: NON FORMULARY DRUG (Mirabegron [Myrbetriq] 50 MG Tab.Er.24h) PO SCH (08:11)
[2022-06-22 09:10] LABS: HCT 31.9 % (37.2-46.3); HGB 10.6 g/dL (12.0-15.0); MCH 28.7 pg (27.0-32.0); MCHC 33.2 g/dL (32.0-37.0); MCV 86.4 fL (80.0-97.0); Mean Platelet Volume 10.1 fL (9.5-12.2); NRBC Per 100 WBC 0 /100 WBCS (0.0-0.0); Platelet Count 170 X 10*3/uL (140-440); RBC 3.69 X 10*6/uL (4.10-5.20); RDW 13.8 % (11.5-14.5)
[2022-06-22 11:41] LABS: Basophils # (A) 0.01 X 10*3/uL (0.00-0.10); Basophils % (A) 0.1 %; Eosinophils # (A) 0.01 X 10*3/uL (0.04-0.35); Eosinophils % (A) 0.1 %; Immature Grans, Automated 0.4 %; Lymphocytes # (A) 1.41 X 10*3/uL (0.90-5.00); Lymphocytes % (A) 11.8 %; Monocytes # (A) 1.94 X 10*3/uL (0.20-1.00); Monocytes % (A) 16.2 %; Neutrophils # (A) 8.58 X 10*3/uL (1.80-7.70); Neutrophils % (A) 71.4 %
--- NOTE | 2022-06-22 12:50 | P.CONS ---
History of Present Illness - Reason for Consult Consult date: 06/21/22 Medical management Requesting physician: Chioma Whitlock - Chief Complaint Bruising at surgical site - History of Present Illness This is a pleasant 66-year-old patient who follows with Dr. Lilly Martinez. Chronic stable medical conditions include hypertension, osteoporosis, anxiety, depression, some cognitive impairment, urinary incontinence. Patient on 06/20/2022 underwent bilateral implant removal with removal of implant capsules. This was result of rupture of the same. Patient was sent over the bilateral SOHAN drains. Patient came back to the ER as patient was having some nausea and vomiting. She also noticed some drainage from the inferior side of the right wound. The SOHAN drain was nondraining. She was seen by Dr. Lamar brewer in the ER and about 200 mL of hematoma/dark blood was expressed from the area of incision on the right implant removal site. Left breast site also draining some having some drainage. Patient was very anxious in the ER. Home medications ordered. Appetite is okay. No fever no chills. Has a dressing on the chest. Review of systems: GEN.: Tired EYES: None HEENT: None NECK: None RESPIRATORY: None CARDIOVASCULAR: None GASTROINTESTINAL: None GENITOURINARY: None MUSCULOSKELETAL: Some joint pains LYMPHATICS: None HEMATOLOGICAL: None PSYCHIATRY: Very anxious] NEUROLOGICAL: None Past medical history to include: Hypertension, osteoarthritis, anxiety, depression, cognitive impairment, urinary incontinence. Uses a walker because of recent knee immobilizer. Social history: No smoking or alcohol. . Physical examination: VITAL SIGNS: 98, 97, 22, 169 with 79, 98% room air GENERAL: BMI 26.6, declining in bed, very anxious. EYES: Pupils equal. Conjunctiva normal. HEENT: External appearance of nose and ears normal, oral cavity grossly normal. NECK: JVD not raised; masses not palpable. HEART: First and second heart sounds are normal; no edema. LUNGS: Respiratory rate normal; clear to auscultation. CHEST wall: Dressing across the chest. SOHAN drain. ABDOMEN: Soft, nontender, liver spleen not palpable, no masses palpable. PSYCH: Alert and oriented x3; mood and affect very anxiousl. MUSCULOSKELETAL:No Clubbing/cyanosis;muscles-grossly intact, 7 evidence of OA NEUROLOGICAL: Cranial nerves grossly intact; no facial asymmetry, power and sensation grossly intact. LYMPHATICS: No lymph nodes palpable in the axilla and neck INVESTIGATIONS, reviewed in the clinical context: June 21: White count 7.7 hemoglobin 13 platelets 163 potassium 4 BUN 20 creatinine 0.8 Previous labs: Hemoglobin 15 on June 20 Assessment and plan: -Right breast hematoma, removed in the ER. By her surgeon Follow H&H. Dressing to continue -bilateral implant removal with removal of implant capsules. For rupture of the capsules on 06/20/2022 -Anxiety not otherwise specified, other psychiatry disorder Xanax, Celexa, trazodone -Mild cognitive impairment Aricept, Namenda -Urinary stress incontinence Myrbetriq -Essential hypertension Propranolol ER 120 mg Patient was reassured. Home medications resumed. SOHAN drains in place. Activity as tolerated. Follow H&H Thank you Dr. Alejandra Brewer. Past Medical History Past Medical History: Hypertension, Osteoarthritis (OA) Additional Past Medical History / Comment(s): uses walker, left leg in knee immobilizer. Recent injury to left knee states "knee gave out", narrow esophagus History of Any Multi-Drug Resistant Organisms: None Reported Past Surgical History: Joint Replacement Additional Past Surgical History / Comment(s): left knee replacement, and repair, right knee replacement and revision, ruptured ovarian cyst repair Past Anesthesia/Blood Transfusion Reactions: No Reported Reaction Additional Past Anesthesia/Blood Transfusion Reaction / Comm: no problems with prior blood transfusion Past Psychological History: Anxiety Smoking Status: Never smoker Past Alcohol Use History: None Reported Past Drug Use History: None Reported - Past Family History Mother Family Medical History: No Reported History Father Family Medical History: Cancer Additional Family Medical History / Comment(s): Jaw and pancreatic cancer. Brother(s) Family Medical History: Cancer Additional Family Medical History / Comment(s): cancer Medications and Allergies Home Medications Medication Instructions Recorded Confirmed Type risperiDONE [RisperDAL] 1 mg PO BID 07/25/17 06/21/22 History ALPRAZolam [ALPRAZolam XR] 2 mg PO BID 02/23/22 06/21/22 History Citalopram Hydrobromide 20 mg PO BID 02/23/22 06/21/22 History [Citalopram HBr] Donepezil [Aricept] 5 mg PO HS 02/23/22 06/21/22 History Memantine HCl 10 mg PO BID 02/23/22 06/21/22 History Propranolol HCl [Propranolol HCl 120 mg PO PC-LUNCH 02/23/22 06/21/22 History ER] Trihexyphenidyl HCl 5 mg PO BID 02/23/22 06/21/22 History traZODone HCL 150 mg PO HS 02/23/22 06/21/22 History HYDROcodone/APAP 5-325MG [[place] 1 tab PO Q6HR PRN 06/21/22 06/21/22 History 5-325] Minocycline HCl [Minocin] 100 mg PO DAILY 06/21/22 06/21/22 History Mirabegron [Myrbetriq] 50 mg PO DAILY 06/21/22 06/21/22 History Allergies Allergy/AdvReac Type Severity Reaction Status Date / Time No Known Allergies Allergy Verified 06/21/22 15:01 Physical Exam Vitals: Vital Signs Temp Pulse Resp BP Pulse Ox 06/21/22 15:50 101 H 19 178/80 99 06/21/22 10:07 98 F 96 18 130/68 100 Intake and Output 06/21/22 06/21/22 06/21/22 06:59 14:59 22:59 Other: Weight 81.647 kg Results CBC & Chem 7: 06/22/22 06:34 06/21/22 11:50 Labs: Abnormal Lab Results - Last 24 Hours (Table) 06/21/22 06/21/22 06/21/22 Range/Units 11:50 11:50 11:50 WBC 17.7 H (3.8-10.6) k/uL Neutrophils # 14.0 H (1.3-7.7) k/uL Monocytes # 2.0 H (0-1.0) k/uL BUN 20 H (7-17) mg/dL Glucose 125 H (74-99) mg/dL Creatine Kinase 171 H (30-135) U/L Urine Protein Trace H (Negative) Urine Ketones 1+ H (Negative) Ur Leukocyte Esterase Trace H (Negative) Urine Mucus Many H (None) /hpf
--- NOTE | 2022-06-22 13:03 | P.PN ---
Progress Note - Text Progress Note Date: 06/22/22 - Chief Complaint Bruising at surgical site Hospital course This is a pleasant 66-year-old patient who follows with Dr. Lilly Martinez. Chronic stable medical conditions include hypertension, osteoporosis, anxiety, depression, some cognitive impairment, urinary incontinence. Patient on 06/20/2022 underwent bilateral implant removal with removal of implant capsules. This was result of rupture of the same. Patient was sent over the bilateral SOHAN drains. Patient came back to the ER as patient was having some nausea and vomiting. She also noticed some drainage from the inferior side of the right wound. The SOHAN drain was nondraining. She was seen by Dr. Lamar brewer in the ER and about 200 mL of hematoma/dark blood was expressed from the area of incision on the right implant removal site. Left breast site also draining some having some drainage. Patient was very anxious in the ER. Home medications ordered. Appetite is okay. No fever no chills. Has a dressing on the chest. 06/30/2022: Decreased appetite. Anxiety better. Some drop in hemoglobin. We'll add ferrous sulfate. Continue IV fluids. Encourage oral intake. Have the patient sit up in a chair. Active Medications Hydrocodone Bitart/Acetaminophen (Hydrocodone/Apap 5-325mg 1 Each Tab) 1 each PO Q4HR PRN PRN Reason: Moderate Pain (Scale 4 to 6) Alprazolam (Alprazolam 1 Mg Tab) 1 mg PO QID [facility] Last Admin: 06/22/22 12:16 Dose: 1 mg Citalopram Hydrobromide (Citalopram Hydrobromide 20 Mg Tab) 20 mg PO BID [facility] Last Admin: 06/22/22 08:02 Dose: 20 mg Donepezil HCl (Donepezil 5 Mg Tab) 5 mg PO HS [facility] Last Admin: 06/21/22 23:36 Dose: 5 mg Heparin Sodium (Porcine) (Heparin Sodium,Porcine/Pf 5,000 Unit/0.5 Ml Syringe) 5,000 unit SQ Q12HR [facility] Last Admin: 06/22/22 08:03 Dose: 5,000 unit Hydromorphone HCl (Hydromorphone 1 Mg/Ml 1 Ml Syringe) 1 mg IVP Q3HR PRN PRN Reason: Severe Pain (Scale 7 to 10) Last Admin: 06/21/22 15:39 Dose: 1 mg Sodium Chloride (Saline 0.9%) 1,000 mls @ 100 mls/hr IV .Q10H [facility] Last Admin: 06/22/22 12:03 Dose: Not Given Dextrose/Sodium Chloride (Dextrose 5%-1/2ns Iv Soln) 1,000 mls @ 100 mls/hr IV .Q10H [facility] Last Admin: 06/22/22 08:09 Dose: 100 mls/hr Memantine (Memantine 10 Mg Tab) 10 mg PO BID [facility] Last Admin: 06/22/22 08:02 Dose: 10 mg Naloxone HCl (Naloxone 0.4 Mg/Ml 1 Ml Vial) 0.2 mg IV Q2M PRN PRN Reason: Opioid Reversal Non-Formulary Medication (Mirabegron [Myrbetriq]) 50 mg PO DAILY [facility] Last Admin: 06/22/22 08:11 Dose: Not Given Prochlorperazine Edisylate (Prochlorperazine Inj 10 Mg/2 Ml Vial) 5 mg IVP Q6HR PRN PRN Reason: Nausea And Vomiting Last Admin: 06/22/22 04:57 Dose: 5 mg Risperidone (Risperidone 1 Mg Tab) 1 mg PO BID [facility] Last Admin: 06/22/22 08:03 Dose: 1 mg Trazodone HCl (Trazodone Hcl 50 Mg Tab) 150 mg PO HS [facility] Last Admin: 06/21/22 23:35 Dose: 150 mg Trihexyphenidyl HCl (Trihexyphenidyl 2 Mg Tab) 5 mg PO BID [facility] Last Admin: 06/22/22 08:03 Dose: 5 mg Past medical history to include: Hypertension, osteoarthritis, anxiety, depression, cognitive impairment, urinary incontinence. Uses a walker because of recent knee immobilizer. Social history: No smoking or alcohol. . Physical examination: VITAL SIGNS: 97.5, 109, 17, 164/82, 98% room air GENERAL: BMI 26.6, reclining in bed, less anxious. EYES: Pupils equal. Conjunctiva normal. HEENT: External appearance of nose and ears normal, oral cavity grossly normal. NECK: JVD not raised; masses not palpable. HEART: First and second heart sounds are normal; no edema. LUNGS: Respiratory rate normal; clear to auscultation. CHEST wall: Dressing across the chest. SOHAN drain. ABDOMEN: Soft, nontender, liver spleen not palpable, no masses palpable. PSYCH: Alert and oriented x3; mood and affect less anxiousl. MUSCULOSKELETAL:No Clubbing/cyanosis;muscles-grossly intact, evidence of OA INVESTIGATIONS, reviewed in the clinical context: June 22: WBC 12 hemoglobin 10.6 platelets 170 June 21: White count 7.7 hemoglobin 13 platelets 163 potassium 4 BUN 20 creatinine 0.8 Previous labs: Hemoglobin 15 on June 20 Assessment and plan: -Right breast hematoma, removed in the ER. By her surgeon Follow H&H. Dressing to continue -bilateral implant removal with removal of implant capsules. For rupture of the capsules on 06/20/2022 -Anxiety not otherwise specified, other psychiatry disorder Xanax, Celexa, trazodone -Acute postprocedure blood loss anemia Ferrous sulfate. -Mild cognitive impairment Aricept, Namenda -Urinary stress incontinence Myrbetriq -Essential hypertension Propranolol ER 120 mg Encourage to sit up in a chair. Add ferrous sulfate. Other medications to continue. Thank you Dr. Alejandra Brewer.
[2022-06-22] MEDS: PROPRANOLOL LA 60 MG CAP.SA.24H PO SCH (13:53)
--- NOTE | 2022-06-22 16:05 | P.PN ---
Subjective Progress Note Date: 06/22/22 Principal diagnosis: Postoperative nausea vomiting/right breast hematoma Vicky is a 66-year-old white female status post bilateral ruptured implant removal with capsulotomy on . The patient experienced nausea and vomiting on the first postoperative day and reported to the emergency department. She was also noted to have the drain on the right side nonfunctioning and a hematoma was identified and expressed. At this time she is doing better her nausea and vomiting have decreased and she was able to tolerate some lunch. She was seen on the floor in her dressing was removed and changed. The SOHAN drain on the left was no longer present and she did have some drainage from that site. Her most recent hemoglobin 10.6, white blood cell count 12. She has had approximately 30 mL of serous drainage from the drain on the right. The drain on the left is no longer present. She is uncertain as to when it became dislodged. Objective - Vital Signs Vital signs: Vital Signs Temp 98.5 F 06/22/22 14:00 Pulse 108 H 06/22/22 14:00 Resp 18 06/22/22 14:00 BP 137/82 06/22/22 14:00 Pulse Ox 97 06/22/22 14:00 FiO2 Intake & Output 06/21/22 06/22/22 06/22/22 18:59 06:59 18:59 Output Total 80 60 Balance -80 -60 Weight 81.647 kg 81.647 kg Output: Drainage 80 60 Right Breast 80 60 Other: Voiding Method Toilet # Voids 2 3 - Constitutional General appearance: Present: cooperative - EENT Eyes: Present: EOMI ENT: Present: hearing grossly normal - Neck Neck: Present: normal ROM - Respiratory Respiratory: bilateral: CTA - Cardiovascular Heart sounds: normal: S1, S2 - Integumentary Integumentary Comment(s): Incision bilateral clean and dry Hematoma expressed from the left drain site this is dark and serous in nature SOHAN drainage on the right is more red than yesterday and slightly thicker - Labs CBC & Chem 7: 06/22/22 06:34 06/21/22 11:50 Labs: Abnormal Lab Results - Last 24 Hours (Table) 06/22/22 Range/Units 06:34 WBC 12.00 H (4.50-10.00) X 10*3/uL RBC 3.69 L (4.10-5.20) X 10*6/uL Hgb 10.6 L (12.0-15.0) g/dL Hct 31.9 L (37.2-46.3) % Immature Gran # 0.05 H (0.00-0.04) X 10*3/uL Neutrophils # 8.58 H (1.80-7.70) X 10*3/uL Monocytes # 1.94 H (0.20-1.00) X 10*3/uL Eosinophils # 0.01 L (0.04-0.35) X 10*3/uL Assessment and Plan Assessment: Impression: Patient postop day #2 bilateral implant removal/nausea and vomiting improved Hematoma expressed right surgical site; at this time SOHAN drain is working but the output is slightly more red and thicker Plan: Dressing changed CBC in a.m. Be sure patient is tolerating diet Appreciate medicine note
[2022-06-22] MEDS: FERROUS SULFATE 325 MG TAB PO SCH (17:09)
[2022-06-22] MEDS: traZODone HCL 50 MG TAB PO SCH (22:50)
[2022-06-22] MEDS: DONEPEZIL 5 MG TAB PO SCH (22:50)
[2022-06-23 04:25] LABS: Basophils % (A) 0 %; Eosinophils # (A) 0.1 k/uL (0-0.7); Eosinophils % (A) 1 %; HCT 31.2 % (34.0-46.0); HGB 10.2 gm/dL (11.4-16.0); Hypochromasia Slight; Lymphocytes % (A) 29 %; MCH 29.4 pg (25.0-35.0); MCHC 32.8 g/dL (31.0-37.0); MCV 89.6 fL (80.0-100.0); Mean Platelet Volume 7.9; Monocytes # (A) 0.7 k/uL (0-1.0); Monocytes % (A) 10 %; Neutrophils # (A) 3.9 k/uL (1.3-7.7); Neutrophils % (A) 56 %; Platelet Count 129 k/uL (150-450); RBC 3.48 m/uL (3.80-5.40); RDW 13.5 % (11.5-15.5)
[2022-06-23] MEDS: SODIUM CHLORIDE 0.9% 1,000 ML IV SCH ×2 (04:26→12:02)
[2022-06-23] MEDS: MEMANTINE 10 MG TAB PO SCH (09:04)
[2022-06-23] MEDS: ALPRAZolam 1 MG TAB PO SCH ×2 (09:04→15:10)
[2022-06-23] MEDS: FERROUS SULFATE 325 MG TAB PO SCH (09:04)
[2022-06-23] MEDS: CITALOPRAM HYDROBROMIDE 20 MG TAB PO SCH (09:04)
[2022-06-23] MEDS: HEPARIN SODIUM,PORCINE/PF 5,000 UNIT/0.5 ML SYRINGE SQ SCH (09:04)
[2022-06-23] MEDS: TRIHEXYPHENIDYL 2 MG TAB PO SCH (09:05)
[2022-06-23] MEDS: NON FORMULARY DRUG (Mirabegron [Myrbetriq] 50 MG Tab.Er.24h) PO SCH (09:06)
[2022-06-23] MEDS: risperiDONE 1 MG TAB PO SCH (09:06)
[2022-06-23] MEDS ORDERED: LACTULOSE 20 GM/30 ML CUP PO ONE (10:30)
[2022-06-23] MEDS: DEXTROSE 5%-0.45% NACL 1,000 ML IV SCH (12:03)
[2022-06-23 13:49] VITALS: BP 152/80; PULSE 70; RESP 18; TEMP 98.2
[2022-06-23] MEDS ORDERED: PSYLLIUM HUSK 100% 6 GM PACKET PO SCH (14:29)
--- NOTE | 2022-06-23 15:07 | P.PN ---
Subjective Progress Note Date: 06/23/22 Principal diagnosis: Postoperative nausea vomiting/right breast hematoma Vicky is a 66-year-old white female status post bilateral ruptured implant removal with capsulotomy on . The patient experienced nausea and vomiting on the first postoperative day and reported to the emergency department. She was also noted to have the drain on the right side nonfunctioning and a hematoma was identified and expressed. The patient was noted to have the left SOHAN drain dislodged and a hematoma had developed on that side which was expressed yesterday. Today the patient is doing well. She has serous drainage from the right SOHAN drain which throughout the day has been approximately 20 mL. Her pain is under control. The nausea and vomiting has subsided. Hemoglobin 10.2. White count 7. Objective - Vital Signs Vital signs: Vital Signs Temp 98.2 F 06/23/22 13:48 Pulse 70 06/23/22 13:48 Resp 18 06/23/22 13:48 BP 152/80 06/23/22 13:48 Pulse Ox 98 06/23/22 13:48 FiO2 Intake & Output 06/22/22 06/23/22 06/23/22 18:59 06:59 18:59 Output Total 75 20 Balance -75 -20 Output: Drainage 75 20 Right Breast 75 20 Other: Voiding Method Toilet Toilet # Voids 3 0 - Constitutional General appearance: Present: cooperative - EENT Eyes: Present: EOMI ENT: Present: hearing grossly normal - Respiratory Respiratory: bilateral: CTA - Cardiovascular Heart sounds: normal: S1, S2 - Integumentary Integumentary Comment(s): Incisions clean and dry bilaterally Weight 2 SOHAN serous in nature approximately 20 mL - Labs CBC & Chem 7: 06/23/22 04:10 06/21/22 11:50 Labs: Abnormal Lab Results - Last 24 Hours (Table) 06/23/22 Range/Units 04:10 RBC 3.48 L (3.80-5.40) m/uL Hgb 10.2 L (11.4-16.0) gm/dL Hct 31.2 L (34.0-46.0) % Plt Count 129 L (150-450) k/uL Assessment and Plan Assessment: Impression: Patient postop day #3 bilateral implant removal/nausea and vomiting improved Hematoma expressed right surgical site; at this time SOHAN drain is working the output is serous in nature Plan: Dressing changed Teach patient and drain care Patient ready for discharge if okay with medicine Follow-up Dr. Ferrari in approximately 1 week
[2022-06-23] MEDS: PROPRANOLOL LA 60 MG CAP.SA.24H PO SCH (15:10)
--- NOTE | 2022-06-23 15:11 | P.DS ---
Providers Date of admission: 06/21/22 14:27 Attending physician: Chioma Whitlock Consults: 06/21/22 14:27 Consult Physician Routine Consulting Provider: Kennedy Noel Consult Reason/Comments: Medical management Do you want consulting provider notified?: Already Contacted Primary care physician: Lilly Martinez Patient Condition at Discharge: Stable Plan - Discharge Summary New Discharge Prescriptions: New Ferrous Sulfate [Iron (65 MG Elemental)] 325 mg PO BID-W/MEALS tab Continue risperiDONE [RisperDAL] 1 mg PO BID Citalopram Hydrobromide [Citalopram HBr] 20 mg PO BID ALPRAZolam [ALPRAZolam XR] 2 mg PO BID Mirabegron [Myrbetriq] 50 mg PO DAILY HYDROcodone/APAP 5-325MG [[place] 5-325] 1 tab PO Q6HR PRN PRN Reason: Pain Trihexyphenidyl HCl 5 mg PO BID Propranolol HCl [Propranolol HCl ER] 120 mg PO PC-LUNCH Memantine HCl 10 mg PO BID Donepezil [Aricept] 5 mg PO HS traZODone HCL 150 mg PO HS Discharge Medication List risperiDONE [RisperDAL] 1 mg PO BID 07/25/17 [History] ALPRAZolam [ALPRAZolam XR] 2 mg PO BID 02/23/22 [History] Citalopram Hydrobromide [Citalopram HBr] 20 mg PO BID 02/23/22 [History] Donepezil [Aricept] 5 mg PO HS 02/23/22 [History] Memantine HCl 10 mg PO BID 02/23/22 [History] Propranolol HCl [Propranolol HCl ER] 120 mg PO PC-LUNCH 02/23/22 [History] Trihexyphenidyl HCl 5 mg PO BID 02/23/22 [History] traZODone HCL 150 mg PO HS 02/23/22 [History] HYDROcodone/APAP 5-325MG [[place] 5-325] 1 tab PO Q6HR PRN 06/21/22 [History] Mirabegron [Myrbetriq] 50 mg PO DAILY 06/21/22 [History] Ferrous Sulfate [Iron (65 MG Elemental)] 325 mg PO BID-W/MEALS tab 06/23/22 [Rx] Follow up Appointment(s)/Referral(s): Lilly Martinez MD [Primary Care Provider] - 1-2 days Chioma Whitlock MD [STAFF PHYSICIAN] - 10 Days Activity/Diet/Wound Care/Special Instructions: teach patient and drain care wear bra at all times to report to ER any concerns, Dr. Jaffe covering me until July 05. Discharge Disposition: HOME SELF-CARE
--- NOTE | 2022-06-23 18:18 | P.PN ---
Progress Note - Text Progress Note Date: 06/23/22 - Chief Complaint Bruising at surgical site Hospital course This is a pleasant 66-year-old patient who follows with Dr. Lilly Martinez. Chronic stable medical conditions include hypertension, osteoporosis, anxiety, depression, some cognitive impairment, urinary incontinence. Patient on 06/20/2022 underwent bilateral implant removal with removal of implant capsules. This was result of rupture of the same. Patient was sent over the bilateral SOHAN drains. Patient came back to the ER as patient was having some nausea and vomiting. She also noticed some drainage from the inferior side of the right wound. The SOHAN drain was nondraining. She was seen by Dr. Lamar stephens in the ER and about 200 mL of hematoma/dark blood was expressed from the area of incision on the right implant removal site. Left breast site also draining some having some drainage. Patient was very anxious in the ER. Home medications ordered. Appetite is okay. No fever no chills. Has a dressing on the chest. 06/22/2022: Decreased appetite. Anxiety better. Some drop in hemoglobin. We'll add ferrous sulfate. Continue IV fluids. Encourage oral intake. Have the patient sit up in a chair. 06/23/2022: Patient had a BM for about a week. Given lactulose. Been given a soapsuds enema. Had a good BM. Medically stable otherwise. Discussed with patient. Current medications reviewed. Past medical history to include: Hypertension, osteoarthritis, anxiety, depression, cognitive impairment, urinary incontinence. Uses a walker because of recent knee immobilizer. Social history: No smoking or alcohol. . Physical examination: VITAL SIGNS: 98.2, 70, 18, 1 52 x 80, 98% room air GENERAL: Comfortable EYES: Pupils equal. Conjunctiva normal. HEENT: External appearance of nose and ears normal, oral cavity grossly normal. NECK: JVD not raised; masses not palpable. HEART: First and second heart sounds are normal; no edema. LUNGS: Respiratory rate normal; clear to auscultation. CHEST wall: Dressing across the chest. SOHAN drain. ABDOMEN: Soft, nontender, liver spleen not palpable, no masses palpable. PSYCH: Alert and oriented x3; mood and affect less anxiousl. MUSCULOSKELETAL:No Clubbing/cyanosis;muscles-grossly intact, evidence of OA INVESTIGATIONS, reviewed in the clinical context: June 23: Hemoglobin 10.2 June 22: WBC 12 hemoglobin 10.6 platelets 170 June 21: White count 7.7 hemoglobin 13 platelets 163 potassium 4 BUN 20 creatinine 0.8 Previous labs: Hemoglobin 15 on June 20 Assessment and plan: -Right breast hematoma, removed in the ER. By her surgeon Follow H&H. Dressing to continue -bilateral implant removal with removal of implant capsules. For rupture of the capsules on 06/20/2022 -Anxiety not otherwise specified, other psychiatry disorder Xanax, Celexa, trazodone -Acute postprocedure blood loss anemia Ferrous sulfate. -Mild cognitive impairment Aricept, Namenda -Urinary stress incontinence Myrbetriq -Essential hypertension Propranolol ER 120 mg -Acute constipation from pain medications decreased activity. Add Metamucil. Responded well to enema Care was discussed with the patient. Medications as above
== END 2022-06-23 16:43 | disposition home or self-care (01) ==
LOC: EC 09:15 → 6NMEDSUR 14:27 → 4SSUR 17:48
PROVIDERS: ADMIT Surgery; ATTEND Surgery
DX: L76.32 Postprocedural hematoma of skin and subcutaneous tissue following other procedure (principal); D62 Acute posthemorrhagic anemia; I10 Essential (primary) hypertension; F41.9 Anxiety disorder, unspecified; J84.10 Pulmonary fibrosis, unspecified; L92.8 Other granulomatous disorders of the skin and subcutaneous tissue; K59.03 Drug induced constipation; T40.605A Adverse effect of unspecified narcotics, initial encounter; J98.11 Atelectasis; F32.A Depression, unspecified; M81.0 Age-related osteoporosis without current pathological fracture; G31.84 Mild cognitive impairment of uncertain or unknown etiology; N39.3 Stress incontinence (female) (male); Z79.899 Other long term (current) drug therapy; Z96.653 Presence of artificial knee joint, bilateral; Z80.0 Family history of malignant neoplasm of digestive organs; Y83.4 Other reconstructive surgery as the cause of abnormal reaction of the patient, or of later complication, without mention of misadventure at the time of the procedure
CPT/HCPCS: 96376 ×2; 96372 ×2; 96360; 96361 ×2; 96374; 96375; 99284; 36415; 93005; 80053; 82550; 83690; 83735; 84484; 85025 ×3; 81001; 71046; 74018; G0378 ×3; J0780 ×2; J2765; J2405; J1170; J1644 ×2

== ENCOUNTER 2022-06-27 12:28 | Emergency (ER) | payer MEDICARE ==
[2022-06-27 12:33] VITALS: TEMP 98.2
[2022-06-27 13:11] LABS: Basophils % (A) 1 %; Eosinophils # (A) 0.2 k/uL (0-0.7); Eosinophils % (A) 2 %; HCT 35.6 % (34.0-46.0); Lymphocytes # (A) 1.4 k/uL (1.0-4.8); Lymphocytes % (A) 17 %; MCH 29.6 pg (25.0-35.0); MCHC 33.7 g/dL (31.0-37.0); MCV 87.7 fL (80.0-100.0); Mean Platelet Volume 7.5; Monocytes # (A) 0.7 k/uL (0-1.0); Monocytes % (A) 8 %; Neutrophils # (A) 5.6 k/uL (1.3-7.7); Neutrophils % (A) 70 %; Platelet Count 233 k/uL (150-450); RBC 4.06 m/uL (3.80-5.40)
[2022-06-27 13:24] LABS: ALT 25 U/L (4-34); AST 26 U/L (14-36); African American GFR (CKD) >90 (>60 ml/min/1.73 sqM); Albumin 3.8 g/dL (3.5-5.0); Alkaline Phosphatase 77 U/L (38-126); Anion Gap 8 mmol/L; Blood Urea Nitrogen 10 mg/dL (7-17); Calcium 8.3 mg/dL (8.4-10.2); Carbon Dioxide 26 mmol/L (22-30); Chloride 106 mmol/L (98-107); Glucose 104 mg/dL (74-99); Non-African American GFR(CKD) 88 (>60 ml/min/1.73 sqM); Potassium 3.5 mmol/L (3.5-5.1); Sodium 140 mmol/L (137-145); Total Bilirubin 0.8 mg/dL (0.2-1.3); Total Protein 6.2 g/dL (6.3-8.2)
[2022-06-27 13:32] LABS: INR 0.9 (<1.2); Partial Thromboplastin Time 22.1 sec (22.0-30.0); Prothrombin Time 10.4 sec (9.0-12.0)
[2022-06-27] MEDS ORDERED: SODIUM CHLORIDE 0.9% 1,000 ML IV ONE (14:58)
--- NOTE | 2022-06-27 15:03 | ED ---
General Adult HPI - General Chief complaint: Dizziness Stated complaint: revisit - catheter trouble, weakness Time Seen by Provider: 06/27/22 13:23 Source: patient, RN notes reviewed, old records reviewed Mode of arrival: ambulatory Limitations: no limitations - History of Present Illness Initial comments: 66 yo female presenting for evaluation of lightheadedness. Patient is status post bilateral breast implant removal. She states she's had some dark drainage coming from her right breast drain over the past 24 hours. No fever. She's had poor appetite and poor intake as well. No fever. No significant pain. - Related Data Home Medications Medication Instructions Recorded Confirmed risperiDONE [RisperDAL] 1 mg PO BID 07/25/17 06/21/22 ALPRAZolam [ALPRAZolam XR] 2 mg PO BID 02/23/22 06/21/22 Citalopram Hydrobromide 20 mg PO BID 02/23/22 06/21/22 [Citalopram HBr] Donepezil [Aricept] 5 mg PO HS 02/23/22 06/21/22 Memantine HCl 10 mg PO BID 02/23/22 06/21/22 Propranolol HCl [Propranolol HCl 120 mg PO PC-LUNCH 02/23/22 06/21/22 ER] Trihexyphenidyl HCl 5 mg PO BID 02/23/22 06/21/22 traZODone HCL 150 mg PO HS 02/23/22 06/21/22 HYDROcodone/APAP 5-325MG [[place] 1 tab PO Q6HR PRN 06/21/22 06/21/22 5-325] Mirabegron [Myrbetriq] 50 mg PO DAILY 06/21/22 06/21/22 Previous Rx's Medication Instructions Recorded Ferrous Sulfate [Iron (65 MG 325 mg PO BID-W/MEALS tab 06/23/22 Elemental)] Allergies Allergy/AdvReac Type Severity Reaction Status Date / Time No Known Allergies Allergy Verified 06/27/22 12:33 Review of Systems ROS Statement: Those systems with pertinent positive or pertinent negative responses have been documented in the HPI. ROS Other: All systems not noted in ROS Statement are negative. Past Medical History Past Medical History: Hypertension, Osteoarthritis (OA) Additional Past Medical History / Comment(s): uses walker, left leg in knee immobilizer. Recent injury to left knee states "knee gave out", narrow esophagus History of Any Multi-Drug Resistant Organisms: None Reported Past Surgical History: Joint Replacement Additional Past Surgical History / Comment(s): left knee replacement, and repair, right knee replacement and revision, ruptured ovarian cyst repair Past Anesthesia/Blood Transfusion Reactions: No Reported Reaction Additional Past Anesthesia/Blood Transfusion Reaction / Comment(s): no problems with prior blood transfusion Past Psychological History: Anxiety Smoking Status: Never smoker Past Alcohol Use History: None Reported Past Drug Use History: None Reported - Past Family History Mother Family Medical History: No Reported History Father Family Medical History: Cancer Additional Family Medical History / Comment(s): Jaw and pancreatic cancer. Brother(s) Family Medical History: Cancer Additional Family Medical History / Comment(s): cancer General Exam Limitations: no limitations General appearance: alert, in no apparent distress Head exam: Present: atraumatic, normocephalic Eye exam: Present: normal appearance, PERRL ENT exam: Present: mucous membranes dry Neck exam: Present: normal inspection. Absent: tenderness, meningismus Respiratory exam: Absent: respiratory distress, wheezes Cardiovascular Exam: Present: regular rate, normal rhythm GI/Abdominal exam: Present: soft. Absent: distended, tenderness, guarding Neurological exam: Present: alert, oriented X3, CN II-XII intact. Absent: motor sensory deficit Skin exam: Present: warm, dry Course Vital Signs 06/27/22 12:30 Temperature 98.2 F Pulse Rate 94 Respiratory 20 Rate Blood Pressure 168/94 O2 Sat by Pulse 98 Oximetry EKG Findings - EKG Comments: EKG Findings:: EKG: Sinus rhythm rate of 88, normal MD interval, QRS duration 80, QTC 4050 ST segment elevation, inverted T waves inferiorly. Medical Decision Making - Medical Decision Making 66-year-old female presenting for evaluation of weakness, fatigue, and drainage from her right breast. Patient is status post bilateral breast implant removal. Patient had a SOHAN drain in the right breast which has had some serosanguineous drainage. Patient also admits that she has not been drinking enough fluid. In the emergency department she does receive EKG, IV, laboratory testing. Her hemoglobin is improved at 12. Her white blood cell count is normal. She has normal electrolytes. She has negative urinalysis. She's given a liter fluid and is feeling better. I did discuss the case with her surgeon. I lateral breasts are soft, no erythema, no induration, no drainable abscess, no purulent drainage. At this point the patient is encouraged to drink more fluids at home and return with worsening or changing symptoms. - Lab Data Result diagrams: 06/27/22 12:37 06/27/22 12:37 Lab Results 06/27/22 06/27/22 06/27/22 Range/Units 12:37 12:37 12:37 WBC 8.0 (3.8-10.6) k/uL RBC 4.06 (3.80-5.40) m/uL Hgb 12.0 (11.4-16.0) gm/dL Hct 35.6 (34.0-46.0) % MCV 87.7 (80.0-100.0) fL MCH 29.6 (25.0-35.0) pg MCHC 33.7 (31.0-37.0) g/dL RDW 14.0 (11.5-15.5) % Plt Count 233 (150-450) k/uL MPV 7.5 Neutrophils % 70 % Lymphocytes % 17 % Monocytes % 8 % Eosinophils % 2 % Basophils % 1 % Neutrophils # 5.6 (1.3-7.7) k/uL Lymphocytes # 1.4 (1.0-4.8) k/uL Monocytes # 0.7 (0-1.0) k/uL Eosinophils # 0.2 (0-0.7) k/uL Basophils # 0.0 (0-0.2) k/uL PT 10.4 (9.0-12.0) sec INR 0.9 (<1.2) APTT 22.1 (22.0-30.0) sec Sodium 140 (137-145) mmol/L Potassium 3.5 (3.5-5.1) mmol/L Chloride 106 (98-107) mmol/L Carbon Dioxide 26 (22-30) mmol/L Anion Gap 8 mmol/L BUN 10 (7-17) mg/dL Creatinine 0.72 (0.52-1.04) mg/dL Est GFR (CKD-EPI)AfAm >90 (>60 ml/min/1.73 sqM) Est GFR (CKD-EPI)NonAf 88 (>60 ml/min/1.73 sqM) Glucose 104 H (74-99) mg/dL Calcium 8.3 L (8.4-10.2) mg/dL Total Bilirubin 0.8 (0.2-1.3) mg/dL AST 26 (14-36) U/L ALT 25 (4-34) U/L Alkaline Phosphatase 77 (38-126) U/L Troponin I (0.000-0.034) ng/mL Total Protein 6.2 L (6.3-8.2) g/dL Albumin 3.8 (3.5-5.0) g/dL Urine Color Urine Appearance (Clear) Urine pH (5.0-8.0) Ur Specific [place] (1.001-1.035) Urine Protein (Negative) Urine Glucose (UA) (Negative) Urine Ketones (Negative) Urine Blood (Negative) Urine Nitrite (Negative) Urine Bilirubin (Negative) Urine Urobilinogen (<2.0) mg/dL Ur Leukocyte Esterase (Negative) Urine RBC (0-5) /hpf Urine WBC (0-5) /hpf Ur Squamous Epith Cells (0-4) /hpf Urine Mucus (None) /hpf 06/27/22 06/27/22 Range/Units 12:37 16:38 WBC (3.8-10.6) k/uL RBC (3.80-5.40) m/uL Hgb (11.4-16.0) gm/dL Hct (34.0-46.0) % MCV (80.0-100.0) fL MCH (25.0-35.0) pg MCHC (31.0-37.0) g/dL RDW (11.5-15.5) % Plt Count (150-450) k/uL MPV Neutrophils % % Lymphocytes % % Monocytes % % Eosinophils % % Basophils % % Neutrophils # (1.3-7.7) k/uL Lymphocytes # (1.0-4.8) k/uL Monocytes # (0-1.0) k/uL Eosinophils # (0-0.7) k/uL Basophils # (0-0.2) k/uL PT (9.0-12.0) sec INR (<1.2) APTT (22.0-30.0) sec Sodium (137-145) mmol/L Potassium (3.5-5.1) mmol/L Chloride (98-107) mmol/L Carbon Dioxide (22-30) mmol/L Anion Gap mmol/L BUN (7-17) mg/dL Creatinine (0.52-1.04) mg/dL Est GFR (CKD-EPI)AfAm (>60 ml/min/1.73 sqM) Est GFR (CKD-EPI)NonAf (>60 ml/min/1.73 sqM) Glucose (74-99) mg/dL Calcium (8.4-10.2) mg/dL Total Bilirubin (0.2-1.3) mg/dL AST (14-36) U/L ALT (4-34) U/L Alkaline Phosphatase (38-126) U/L Troponin I 0.013 (0.000-0.034) ng/mL Total Protein (6.3-8.2) g/dL Albumin (3.5-5.0) g/dL Urine Color Yellow Urine Appearance Clear (Clear) Urine pH 7.0 (5.0-8.0) Ur Specific [place] 1.013 (1.001-1.035) Urine Protein Negative (Negative) Urine Glucose (UA) Negative (Negative) Urine Ketones 1+ H (Negative) Urine Blood Negative (Negative) Urine Nitrite Negative (Negative) Urine Bilirubin Negative (Negative) Urine Urobilinogen <2.0 (<2.0) mg/dL Ur Leukocyte Esterase Small H (Negative) Urine RBC <1 (0-5) /hpf Urine WBC 1 (0-5) /hpf Ur Squamous Epith Cells 1 (0-4) /hpf Urine Mucus Occasional H (None) /hpf Disposition Clinical Impression: Dehydration Disposition: HOME SELF-CARE Condition: Fair Instructions (If sedation given, give patient instructions): Dizziness (ED), Dehydration (ED) Is patient prescribed a controlled substance at d/c from ED?: No Referrals: Lilly Martinez MD [Primary Care Provider] - 1-2 days Time of Disposition: 17:06
[2022-06-27 16:50] LABS: Appearance,Urine Clear (Clear); Bilirubin,Urine Negative (Negative); Blood,Urine Negative (Negative); Color,Urine Yellow; Glucose,Urine (UA) Negative (Negative); Ketones,Urine 1+ (Negative); Leukocyte Esterase,Urine Small (Negative); Mucus,Urine Occasional /hpf; Nitrite,Urine Negative (Negative); Protein,Urine Negative (Negative); RBC,Urine <1 /hpf (0-5); Specific Gravity,Urine 1.013 (1.001-1.035); Squamous Epithelial Cell,Urine 1 /hpf (0-4); Urobilinogen,Urine <2.0 mg/dL (<2.0); WBC,Urine 1 /hpf (0-5)
[2022-06-27 18:15] VITALS: BP 136/78; PULSE 80; RESP 18
== END 2022-06-27 18:15 | disposition home or self-care (01) ==
LOC: EC 12:28
DX: E86.0 Dehydration (principal); I10 Essential (primary) hypertension; M19.90 Unspecified osteoarthritis, unspecified site; F41.9 Anxiety disorder, unspecified; Z79.899 Other long term (current) drug therapy; Z79.811 Long term (current) use of aromatase inhibitors
CPT/HCPCS: 36415; 80053; 81001; 84484; 85025; 85610; 85730; 96360; 99284

== ENCOUNTER → 2022-07-04 | Outpatient (CLI) | payer MEDICARE ==
[2022-07-04 12:08] VITALS: BP 153/89; PULSE 80; RESP 18; TEMP 98.6
--- NOTE | 2022-07-04 12:35 | P.PN ---
Progress Note - Text Progress Note Date: 07/04/22 Vicky is a 66 year old white female status post bilateral implant removal on 06-20-22. Postoperatively she has had some nausea and vomiting. She is not using any pain medications at this time. She is not having any fever or chills. He was seen in the emergency room last week at which time her hemoglobin was noted to be 12, and she was treated and released. At this time she has minimal output from the right breast drain it is dark in nature. It is less than 15 mL per day. Examination: Lungs: Clear Heart: Regular rate and rhythm Incision: Clean and dry bilateral Grade SOHAN drain minimal output No evidence of left breast hematoma Plan: Removal right breast drain Follow-up next week If the nausea continues to follow with primary care doctor Removal of nevus right breast next week CC: Dr. Martinez
== END ==
LOC: WWCWWP 11:44
PROVIDERS: ATTEND Surgery
DX: Z53.9 Procedure and treatment not carried out, unspecified reason (principal)

== ENCOUNTER 2022-09-02 06:37 | Emergency (ER) | payer MEDICARE ==
[2022-09-02 06:47] VITALS: RESP 18
[2022-09-02] MEDS ORDERED: SODIUM CHLORIDE 0.9% 1,000 ML IV STA (07:55)
[2022-09-02 08:47] LABS: Basophils % (A) 0 %; Eosinophils % (A) 0 %; HCT 40.7 % (34.0-46.0); HGB 13.4 gm/dL (11.4-16.0); Hypochromasia Slight; Lymphocytes # (A) 1.6 k/uL (1.0-4.8); Lymphocytes % (A) 10 %; MCH 26.5 pg (25.0-35.0); MCHC 32.8 g/dL (31.0-37.0); MCV 80.9 fL (80.0-100.0); Mean Platelet Volume 7.9; Monocytes # (A) 1.2 k/uL (0-1.0); Monocytes % (A) 8 %; Neutrophils # (A) 11.6 k/uL (1.3-7.7); Neutrophils % (A) 77 %; Platelet Count 208 k/uL (150-450); RBC 5.03 m/uL (3.80-5.40); RDW 14.5 % (11.5-15.5); WBC 15.1 k/uL (3.8-10.6)
[2022-09-02 08:58] LABS: Amorphous Sediment,Urine Rare /hpf; Appearance,Urine Clear (Clear); Bilirubin,Urine Negative (Negative); Blood,Urine Negative (Negative); Color,Urine Yellow; Glucose,Urine (UA) Negative (Negative); Ketones,Urine Negative (Negative); Leukocyte Esterase,Urine Large (Negative); Nitrite,Urine Negative (Negative); PH, Urine 6.5 (5.0-8.0); Protein,Urine Negative (Negative); RBC,Urine 1 /hpf (0-5); Specific Gravity,Urine 1.008 (1.001-1.035); Squamous Epithelial Cell,Urine 1 /hpf (0-4); Urobilinogen,Urine <2.0 mg/dL (<2.0); WBC,Urine 2 /hpf (0-5)
[2022-09-02 09:00] LABS: INR 1.1 (<1.2); Partial Thromboplastin Time 23.2 sec (22.0-30.0); Prothrombin Time 11.5 sec (9.0-12.0)
[2022-09-02 09:02] LABS: ALT 53 U/L (4-34); AST 58 U/L (14-36); African American GFR (CKD) >90 (>60 ml/min/1.73 sqM); Alkaline Phosphatase 79 U/L (38-126); Anion Gap 3 mmol/L; Blood Urea Nitrogen 18 mg/dL (7-17); Calcium 8.8 mg/dL (8.4-10.2); Carbon Dioxide 27 mmol/L (22-30); Chloride 105 mmol/L (98-107); Glucose 119 mg/dL (74-99); Non-African American GFR(CKD) 85 (>60 ml/min/1.73 sqM); Sodium 135 mmol/L (137-145); Total Protein 6.9 g/dL (6.3-8.2)
[2022-09-02 09:11] LABS: Potassium 4.2 mmol/L (3.5-5.1)
--- NOTE | 2022-09-02 09:27 | ED ---
General Adult HPI - General Chief complaint: Back Pain/Injury Stated complaint: stiffness in legs Time Seen by Provider: 09/02/22 06:45 Source: patient Mode of arrival: wheelchair Limitations: no limitations - History of Present Illness Initial comments: [id number] female with past nuchal history of bipolar disorder, hypertension who presents to the emergency department with a sensation that she has weakness in her lower extremities. Patient states that she feels extremely weak and stiff in her lower extremities especially from her knee to her feet. She has had difficulty ambulating. She is supposed to use a walker however she has not been using it. She denies any falls. No headache or visual changes. No fevers. Denies any neck pain. She denies any numbness or tingling. When discussing the patient's care with her he states that the symptoms have been chronic for the patient. She has already been through physical therapy for her lower extremity weakness. She is supposed to ambulate with a walker however she never does. She sees Dr. Pollack from psychiatry. The physician a few months ago and therefore she was unable to get her prescriptions filled for a period of time. states that she still is not on the Xanax 2 mg twice a day that she used to take. feels that her mental status has be en deteriorating due to the lack of benzos in her system. He has been attempting to find her new psychiatrist however he states that this has been difficult with his insurance. states that he brought her into the emergency department because she seemed very anxious and was insistent on going. He does not feel that the patient has any new or worsening symptoms somewhat she has aren't been dealing with for the past several months. Patient denies any chest pain or shortness of breath. No abdominal pain. Does admit to some diarrhea. No changes in her urination. No other alleviating, precipitating or modifying factors - Related Data Home Medications Medication Instructions Recorded Confirmed risperiDONE [RisperDAL] 1 mg PO BID 07/25/17 07/04/22 ALPRAZolam [ALPRAZolam XR] 2 mg PO BID 02/23/22 07/04/22 Citalopram Hydrobromide 20 mg PO BID 02/23/22 07/04/22 [Citalopram HBr] Donepezil [Aricept] 5 mg PO HS 02/23/22 07/04/22 Memantine HCl 10 mg PO BID 02/23/22 07/04/22 Propranolol HCl [Propranolol HCl 120 mg PO PC-LUNCH 02/23/22 07/04/22 ER] Trihexyphenidyl HCl 5 mg PO BID 02/23/22 07/04/22 traZODone HCL 150 mg PO HS 02/23/22 07/04/22 Mirabegron [Myrbetriq] 50 mg PO DAILY 06/21/22 07/04/22 Previous Rx's Medication Instructions Recorded Diphenox-Atrop 2.5-0.025 mg 1 - 2 tab PO QID PRN #24 tab 09/02/22 [Lomotil] Allergies Allergy/AdvReac Type Severity Reaction Status Date / Time No Known Allergies Allergy Verified 09/02/22 06:47 Review of Systems ROS Statement: Those systems with pertinent positive or pertinent negative responses have been documented in the HPI. ROS Other: All systems not noted in ROS Statement are negative. Past Medical History Past Medical History: Hypertension, Osteoarthritis (OA) Additional Past Medical History / Comment(s): uses walker, left leg in knee immobilizer. Recent injury to left knee states "knee gave out", narrow esophagus History of Any Multi-Drug Resistant Organisms: None Reported Past Surgical History: Joint Replacement Additional Past Surgical History / Comment(s): left knee replacement, and repair, right knee replacement and revision, ruptured ovarian cyst repair Past Anesthesia/Blood Transfusion Reactions: No Reported Reaction Additional Past Anesthesia/Blood Transfusion Reaction / Comment(s): no problems with prior blood transfusion Past Psychological History: Anxiety Smoking Status: Never smoker Past Alcohol Use History: None Reported Past Drug Use History: None Reported - Past Family History Mother Family Medical History: No Reported History Father Family Medical History: Cancer Additional Family Medical History / Comment(s): Jaw and pancreatic cancer. Brother(s) Family Medical History: Cancer Additional Family Medical History / Comment(s): cancer General Exam Limitations: altered mental status General appearance: alert, anxious Head exam: Present: atraumatic, normocephalic, normal inspection ENT exam: Present: normal exam, mucous membranes moist Neck exam: Present: normal inspection. Absent: tenderness, meningismus, lymphadenopathy Respiratory exam: Present: normal lung sounds bilaterally. Absent: respiratory distress, wheezes, rales, rhonchi, stridor Cardiovascular Exam: Present: regular rate, normal rhythm, normal heart sounds. Absent: systolic murmur, diastolic murmur, rubs, gallop, clicks GI/Abdominal exam: Present: soft, normal bowel sounds. Absent: distended, tenderness, guarding, rebound, rigid Extremities exam: Present: normal inspection, full ROM, normal capillary refill, other (5/5 muscle strength all extremities). Absent: tenderness, pedal edema, joint swelling, calf tenderness Back exam: Present: normal inspection Neurological exam: Present: alert, oriented X3 Psychiatric exam: Present: anxious, flat affect Skin exam: Present: warm, dry, intact, normal color. Absent: rash Course Vital Signs 09/02/22 09/02/22 06:44 11:17 Temperature 97.9 F 98 F Pulse Rate 69 80 Respiratory 18 18 Rate Blood Pressure 172/89 132/78 O2 Sat by Pulse 99 100 Oximetry EKG Findings - EKG Comments: EKG Findings:: EKG demonstrates sinus bradycardia with a rate of 54. ND interval 135. QRS 83. QTC of 334. No acute ST segment elevations or depressions. EKG interpreted by myself Medical Decision Making - Medical Decision Making Upon arrival patient was placed into room 10. A thorough history and physical exam was performed. feels that the patient's symptoms have been chronic however I did recommend testing for weakness. Patient has full strength in her lower extremity. She is able to ambulate however slowly. IV is established and laboratory studies were conducted. Patient does provide a urine sample. Upon return of the results they are discussed with the patient and her at bedside. I did offer admission for rehab placement however the patient does not want this. They do have an appointment with Dr. Merrill coming up in a couple weeks for which I did recommend that the patient does need physical therapy again. I did provide them with a list of resources in regards to mental health assistance. I offered to write the patient is short prescription for the Xanax however the states that the patient has been off of the medication for such a significant period of time that he does not feel 3 days would benefit the patient. I do agree with this. Patient will be discharged home at this time with a prescription for Lomotil for diarrhea. Instructed to take the medications as directed. Diarrhea is not consistent with C. diff diarrhea. They are to see their primary care doctor at her scheduled appointment in the is to bring the patient back should she have any new or worsening symptoms. All parties were agreeable and the patient was discharged in stable condition - Lab Data Result diagrams: 09/02/22 08:17 09/02/22 08:17 Lab Results 09/02/22 09/02/22 09/02/22 Range/Units 08:07 08:17 08:17 WBC 15.1 H (3.8-10.6) k/uL RBC 5.03 (3.80-5.40) m/uL Hgb 13.4 (11.4-16.0) gm/dL Hct 40.7 (34.0-46.0) % MCV 80.9 (80.0-100.0) fL MCH 26.5 (25.0-35.0) pg MCHC 32.8 (31.0-37.0) g/dL RDW 14.5 (11.5-15.5) % Plt Count 208 (150-450) k/uL MPV 7.9 Neutrophils % 77 % Lymphocytes % 10 % Monocytes % 8 % Eosinophils % 0 % Basophils % 0 % Neutrophils # 11.6 H (1.3-7.7) k/uL Lymphocytes # 1.6 (1.0-4.8) k/uL Monocytes # 1.2 H (0-1.0) k/uL Eosinophils # 0.0 (0-0.7) k/uL Basophils # 0.0 (0-0.2) k/uL Hypochromasia Slight PT 11.5 (9.0-12.0) sec INR 1.1 (<1.2) APTT 23.2 (22.0-30.0) sec Sodium (137-145) mmol/L Potassium (3.5-5.1) mmol/L Chloride (98-107) mmol/L Carbon Dioxide (22-30) mmol/L Anion Gap mmol/L BUN (7-17) mg/dL Creatinine (0.52-1.04) mg/dL Est GFR (CKD-EPI)AfAm (>60 ml/min/1.73 sqM) Est GFR (CKD-EPI)NonAf (>60 ml/min/1.73 sqM) Glucose (74-99) mg/dL Plasma Lactic Acid [place] (0.7-2.0) mmol/L Calcium (8.4-10.2) mg/dL Magnesium (1.6-2.3) mg/dL Total Bilirubin (0.2-1.3) mg/dL AST (14-36) U/L ALT (4-34) U/L Alkaline Phosphatase (38-126) U/L Troponin I (0.000-0.034) ng/mL Total Protein (6.3-8.2) g/dL Albumin (3.5-5.0) g/dL TSH (0.465-4.680) mIU/L Urine Color Yellow Urine Appearance Clear (Clear) Urine pH 6.5 (5.0-8.0) Ur Specific [place] 1.008 (1.001-1.035) Urine Protein Negative (Negative) Urine Glucose (UA) Negative (Negative) Urine Ketones Negative (Negative) Urine Blood Negative (Negative) Urine Nitrite Negative (Negative) Urine Bilirubin Negative (Negative) Urine Urobilinogen <2.0 (<2.0) mg/dL Ur Leukocyte Esterase Large H (Negative) Urine RBC 1 (0-5) /hpf Urine WBC 2 (0-5) /hpf Ur Squamous Epith Cells 1 (0-4) /hpf Amorphous Sediment Rare H (None) /hpf 09/02/22 09/02/22 09/02/22 Range/Units 08:17 08:17 08:17 WBC (3.8-10.6) k/uL RBC (3.80-5.40) m/uL Hgb (11.4-16.0) gm/dL Hct (34.0-46.0) % MCV (80.0-100.0) fL MCH (25.0-35.0) pg MCHC (31.0-37.0) g/dL RDW (11.5-15.5) % Plt Count (150-450) k/uL MPV Neutrophils % % Lymphocytes % % Monocytes % % Eosinophils % % Basophils % % Neutrophils # (1.3-7.7) k/uL Lymphocytes # (1.0-4.8) k/uL Monocytes # (0-1.0) k/uL Eosinophils # (0-0.7) k/uL Basophils # (0-0.2) k/uL Hypochromasia PT (9.0-12.0) sec INR (<1.2) APTT (22.0-30.0) sec Sodium 135 L (137-145) mmol/L Potassium 4.2 (3.5-5.1) mmol/L Chloride 105 (98-107) mmol/L Carbon Dioxide 27 (22-30) mmol/L Anion Gap 3 mmol/L BUN 18 H (7-17) mg/dL Creatinine 0.74 (0.52-1.04) mg/dL Est GFR (CKD-EPI)AfAm >90 (>60 ml/min/1.73 sqM) Est GFR (CKD-EPI)NonAf 85 (>60 ml/min/1.73 sqM) Glucose 119 H (74-99) mg/dL Plasma Lactic Acid [place] 1.0 (0.7-2.0) mmol/L Calcium 8.8 (8.4-10.2) mg/dL Magnesium 2.0 (1.6-2.3) mg/dL Total Bilirubin 1.0 (0.2-1.3) mg/dL AST 58 H (14-36) U/L ALT 53 H (4-34) U/L Alkaline Phosphatase 79 (38-126) U/L Troponin I <0.012 (0.000-0.034) ng/mL Total Protein 6.9 (6.3-8.2) g/dL Albumin 4.0 (3.5-5.0) g/dL TSH 0.711 (0.465-4.680) mIU/L Urine Color Urine Appearance (Clear) Urine pH (5.0-8.0) Ur Specific [place] (1.001-1.035) Urine Protein (Negative) Urine Glucose (UA) (Negative) Urine Ketones (Negative) Urine Blood (Negative) Urine Nitrite (Negative) Urine Bilirubin (Negative) Urine Urobilinogen (<2.0) mg/dL Ur Leukocyte Esterase (Negative) Urine RBC (0-5) /hpf Urine WBC (0-5) /hpf Ur Squamous Epith Cells (0-4) /hpf Amorphous Sediment (None) /hpf Disposition Clinical Impression: Mood disorder, Diarrhea, Weakness Disposition: HOME SELF-CARE Condition: Stable Instructions (If sedation given, give patient instructions): Acute Diarrhea ( ED) Additional Instructions: Please use the Lomotil as needed for your diarrhea. I recommend physical therapy. I will have my gearcase assembler attempt to set this up for you. Please try and make an appointment with one of the psychiatrists on the list. Return to the emergency room for any new or worsening symptoms Prescriptions: Diphenox-Atrop 2.5-0.025 mg [Lomotil] 1 - 2 tab PO QID PRN #24 tab PRN Reason: Diarrhea Is patient prescribed a controlled substance at d/c from ED?: No Referrals: Cassandra Merrill MD [STAFF PHYSICIAN] - 1-2 days Time of Disposition: 10:14
[2022-09-02] MEDS ORDERED: DIPHENOX-ATROP STARTER PACK 8 TAB BTL PO STA (10:10)
[2022-09-02 11:18] VITALS: BP 132/78; PULSE 80; TEMP 98
== END 2022-09-02 11:18 | disposition home or self-care (01) ==
LOC: EC 06:37
DX: F39 Unspecified mood [affective] disorder (principal); R53.1 Weakness; R19.7 Diarrhea, unspecified; M19.90 Unspecified osteoarthritis, unspecified site; F41.9 Anxiety disorder, unspecified; Z79.899 Other long term (current) drug therapy
CPT/HCPCS: 36415; 80053; 81001; 83605; 83735; 84443; 84484; 85025; 85610; 85730; 93005; 96360; 96361; 99284

== ENCOUNTER 2023-01-14 09:38 | Emergency (ER) | payer MEDICARE ==
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
[2023-01-14 11:41] LABS: ALT 21 U/L (4-34); AST 26 U/L (14-36); African American GFR (CKD) >90 (>60 ml/min/1.73 sqM); Albumin 3.9 g/dL (3.5-5.0); Alcohol <10 mg/dL; Alkaline Phosphatase 113 U/L (38-126); Anion Gap 8 mmol/L; Blood Urea Nitrogen 8 mg/dL (7-17); Calcium 9.3 mg/dL (8.4-10.2); Carbon Dioxide 25 mmol/L (22-30); Chloride 109 mmol/L (98-107); Glucose 102 mg/dL (74-99); Non-African American GFR(CKD) 81 (>60 ml/min/1.73 sqM); Potassium 3.3 mmol/L (3.5-5.1); Sodium 142 mmol/L (137-145); Total Bilirubin 0.7 mg/dL (0.2-1.3); Total Protein 6.7 g/dL (6.3-8.2)
[2023-01-14 12:02] LABS: Appearance,Urine Clear (Clear); Bilirubin,Urine Negative (Negative); Blood,Urine Negative (Negative); Color,Urine Light Yellow; Glucose,Urine (UA) Negative (Negative); Ketones,Urine Negative (Negative); Leukocyte Esterase,Urine Negative (Negative); Nitrite,Urine Negative (Negative); PH, Urine 6.5 (5.0-8.0); Protein,Urine Negative (Negative); Specific Gravity,Urine 1.004 (1.001-1.035); Urobilinogen,Urine <2.0 mg/dL (<2.0)
[2023-01-14] MEDS ORDERED: POTASSIUM CHLORIDE ER 20 MEQ TAB.ER PO STA (12:05)
[2023-01-14 12:11] LABS: Amphetamine Screen,Urine Not Detected (NotDetected); Barbiturate Screen,Urine Not Detected (NotDetected); Benzodiazepines Screen,Urine Detected (NotDetected); Cocaine Screen,Urine Not Detected (NotDetected); Methadone Screen, Urine Not Detected (NotDetected); Opiate Screen,Urine Not Detected (NotDetected); Oxycodone Screen, Urine Not Detected (NotDetected); Phencyclidine Screen,Urine Not Detected (NotDetected); Tricyclic Antidepressant,Urine Not Detected (NotDetected); Urn Cannabinoid Scrn Not Detected (NotDetected)
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
[2023-01-14 12:52] LABS: Partial Thromboplastin Time 23.9 sec (22.0-30.0); Prothrombin Time 10.8 sec (9.0-12.0)
[2023-01-14 12:58] LABS: Anisocytosis Slight; Basophils % (A) 0 %; Eosinophils # (A) 0.1 k/uL (0-0.7); Eosinophils % (A) 1 %; HCT 43.3 % (34.0-46.0); HGB 13.8 gm/dL (11.4-16.0); Lymphocytes # (A) 1.1 k/uL (1.0-4.8); Lymphocytes % (A) 16 %; MCH 26.1 pg (25.0-35.0); MCHC 31.8 g/dL (31.0-37.0); MCV 82.1 fL (80.0-100.0); Mean Platelet Volume 7.8; Monocytes # (A) 0.4 k/uL (0-1.0); Monocytes % (A) 6 %; Neutrophils # (A) 5.3 k/uL (1.3-7.7); Neutrophils % (A) 75 %; Platelet Count 192 k/uL (150-450); RBC 5.27 m/uL (3.80-5.40); RDW 16.2 % (11.5-15.5); WBC 7.1 k/uL (3.8-10.6)
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
--- NOTE | 2023-01-14 12:59 | XR ---
EXAMINATION TYPE: XR chest 1V portable DATE OF EXAM: 01/14/2023 COMPARISON: 06/21/2022 INDICATION: Trauma TECHNIQUE: Single frontal view of the chest is obtained. FINDINGS: The heart size is normal. The pulmonary vasculature is normal. No suspicious consolidations. Some scarring medially at the left base. Chronic calcified left hilar adenopathy is present. IMPRESSION: 1. No acute pulmonary process.
[2023-01-14] MEDS: ATORVASTATIN 40 MG TAB PO SCH (19:53)
[2023-01-14] MEDS: MEMANTINE 10 MG TAB PO SCH (19:53)
[2023-01-14] MEDS: amLODIPine 5 MG TAB PO SCH (19:53)
[2023-01-14] MEDS: CITALOPRAM HYDROBROMIDE 20 MG TAB PO SCH (19:53)
[2023-01-14] MEDS: traZODone HCL 50 MG TAB PO SCH (19:53)
[2023-01-14] MEDS: DONEPEZIL 5 MG TAB PO SCH ×2 (20:03→20:06)
[2023-01-14] MEDS: TRIHEXYPHENIDYL 2 MG TAB PO SCH (20:03)
[2023-01-14] MEDS: risperiDONE 1 MG TAB PO SCH (20:04)
[2023-01-14] MEDS: PROPRANOLOL LA 60 MG CAP.SA.24H PO SCH (20:04)
[2023-01-14] MEDS: ALPRAZolam 1 MG TAB PO SCH (22:57)
[2023-01-15] MEDS: risperiDONE 1 MG TAB PO SCH ×2 (09:05→20:28)
[2023-01-15] MEDS: ALPRAZolam 1 MG TAB PO SCH ×4 (09:05→23:10)
[2023-01-15] MEDS: CITALOPRAM HYDROBROMIDE 20 MG TAB PO SCH ×2 (09:05→20:28)
[2023-01-15] MEDS: MEMANTINE 10 MG TAB PO SCH ×2 (09:05→20:28)
[2023-01-15] MEDS: amLODIPine 5 MG TAB PO SCH (09:05)
[2023-01-15] MEDS: TRIHEXYPHENIDYL 2 MG TAB PO SCH ×2 (09:35→20:29)
[2023-01-15] MEDS: Mirabegron [Myrbetriq] 50 MG Tab.Er.24h PO SCH (09:36)
[2023-01-15] MEDS: ATORVASTATIN 40 MG TAB PO SCH (20:27)
[2023-01-15] MEDS: PROPRANOLOL LA 60 MG CAP.SA.24H PO SCH (20:28)
[2023-01-15] MEDS: traZODone HCL 50 MG TAB PO SCH (20:28)
[2023-01-15] MEDS: DONEPEZIL 5 MG TAB PO SCH (20:28)
[2023-01-16] MEDS: CITALOPRAM HYDROBROMIDE 20 MG TAB PO SCH ×2 (08:17→21:34)
[2023-01-16] MEDS: risperiDONE 1 MG TAB PO SCH ×2 (08:17→21:33)
[2023-01-16] MEDS: amLODIPine 5 MG TAB PO SCH (08:17)
[2023-01-16] MEDS: ALPRAZolam 1 MG TAB PO SCH ×4 (08:17→19:47)
[2023-01-16] MEDS: MEMANTINE 10 MG TAB PO SCH ×2 (08:17→21:33)
[2023-01-16] MEDS: Mirabegron [Myrbetriq] 50 MG Tab.Er.24h PO SCH (08:18)
[2023-01-16] MEDS: TRIHEXYPHENIDYL 2 MG TAB PO SCH ×2 (08:40→21:49)
[2023-01-16] MEDS: ATORVASTATIN 40 MG TAB PO SCH (21:33)
[2023-01-16] MEDS: traZODone HCL 50 MG TAB PO SCH (21:34)
[2023-01-16] MEDS: DONEPEZIL 5 MG TAB PO SCH (21:49)
[2023-01-16] MEDS: PROPRANOLOL LA 60 MG CAP.SA.24H PO SCH (21:49)
[2023-01-17] MEDS: CITALOPRAM HYDROBROMIDE 20 MG TAB PO SCH ×2 (08:24→22:42)
[2023-01-17] MEDS: MEMANTINE 10 MG TAB PO SCH ×2 (08:24→22:41)
[2023-01-17] MEDS: risperiDONE 1 MG TAB PO SCH ×2 (08:24→22:42)
[2023-01-17] MEDS: ALPRAZolam 1 MG TAB PO SCH ×4 (08:24→22:48)
[2023-01-17] MEDS ORDERED: amLODIPine 5 MG TAB PO SCH (09:00)
[2023-01-17] MEDS: TRIHEXYPHENIDYL 2 MG TAB PO SCH ×2 (10:23→22:49)
[2023-01-17] MEDS: Mirabegron [Myrbetriq] 50 MG Tab.Er.24h PO SCH (10:26)
[2023-01-17 20:37] VITALS: BP 130/76; PULSE 68; RESP 17; TEMP 97.2
[2023-01-17] MEDS ORDERED: ATORVASTATIN 40 MG TAB PO SCH (21:00)
[2023-01-17] MEDS ORDERED: traZODone HCL 50 MG TAB PO SCH (21:00)
[2023-01-17 21:18] LABS: Anisocytosis Slight; Basophils % (A) 0 %; Eosinophils # (A) 0.2 k/uL (0-0.7); Eosinophils % (A) 2 %; HCT 44.3 % (34.0-46.0); HGB 14.3 gm/dL (11.4-16.0); Lymphocytes % (A) 27 %; MCH 26.6 pg (25.0-35.0); MCHC 32.3 g/dL (31.0-37.0); MCV 82.1 fL (80.0-100.0); Mean Platelet Volume 7.5; Monocytes # (A) 0.7 k/uL (0-1.0); Monocytes % (A) 10 %; Neutrophils # (A) 4.3 k/uL (1.3-7.7); Neutrophils % (A) 58 %; Platelet Count 182 k/uL (150-450); RDW 16.1 % (11.5-15.5); WBC 7.4 k/uL (3.8-10.6)
[2023-01-17 21:24] LABS: Albumin 3.9 g/dL (3.5-5.0); Calcium 9.2 mg/dL (8.4-10.2); Potassium 3.8 mmol/L (3.5-5.1); Total Bilirubin 0.6 mg/dL (0.2-1.3); Total Protein 6.8 g/dL (6.3-8.2)
[2023-01-17] MEDS: PROPRANOLOL LA 60 MG CAP.SA.24H PO SCH (22:48)
[2023-01-17] MEDS: DONEPEZIL 5 MG TAB PO SCH (22:48)
[2023-01-18] MEDS: ALPRAZolam 1 MG TAB PO SCH (02:29)
== END 2023-01-18 07:18 ==
LOC: EC 09:38
DX: F41.9 Anxiety disorder, unspecified (principal); F29 Unspecified psychosis not due to a substance or known physiological condition; I10 Essential (primary) hypertension; M19.90 Unspecified osteoarthritis, unspecified site; Z79.899 Other long term (current) drug therapy; Y04.0XXA Assault by unarmed brawl or fight, initial encounter; Z20.822 Contact with and (suspected) exposure to COVID-19
CPT/HCPCS: 82075; 36415; 80053; 84484; 85025; 85610; 85730; 81003; 80306; 73030; 73590; 71045; 72125; 70450; 99285; G0480; 80320

== ENCOUNTER 2023-01-28 22:15 | Observation (INO) | payer MEDICARE ==
[2023-01-29 00:11] LABS: African American GFR (CKD) >90 (>60 ml/min/1.73 sqM); Alcohol <10 mg/dL; Anion Gap 4 mmol/L; Blood Urea Nitrogen 13 mg/dL (7-17); Calcium 8.4 mg/dL (8.4-10.2); Carbon Dioxide 26 mmol/L (22-30); Chloride 109 mmol/L (98-107); Glucose 100 mg/dL (74-99); Non-African American GFR(CKD) 90 (>60 ml/min/1.73 sqM); Sodium 139 mmol/L (137-145)
[2023-01-29 00:42] LABS: Basophils % (A) 0 %; Eosinophils # (A) 0.2 k/uL (0-0.7); Eosinophils % (A) 2 %; HCT 36.7 % (34.0-46.0); HGB 11.9 gm/dL (11.4-16.0); Lymphocytes # (A) 1.9 k/uL (1.0-4.8); Lymphocytes % (A) 31 %; MCH 26.8 pg (25.0-35.0); MCHC 32.4 g/dL (31.0-37.0); MCV 82.7 fL (80.0-100.0); Mean Platelet Volume 7.7; Monocytes # (A) 0.6 k/uL (0-1.0); Monocytes % (A) 11 %; Neutrophils # (A) 3.2 k/uL (1.3-7.7); Neutrophils % (A) 52 %; Platelet Count 145 k/uL (150-450); RBC 4.44 m/uL (3.80-5.40); RDW 15.6 % (11.5-15.5); WBC 6.1 k/uL (3.8-10.6)
--- NOTE | 2023-01-29 01:15 | CT ---
EXAM: CT Head Without Intravenous Contrast CLINICAL HISTORY: Fall TECHNIQUE: Axial computed tomography images of the head/brain without intravenous contrast. CTDI is 49.2 mGy and DLP is 1261.4 mGy-cm. This CT exam was performed using one or more of the following dose reduction techniques: automated exposure control, adjustment of the mA and/or kV according to patient size, and/or use of iterative reconstruction technique. COMPARISON: 01/14/2022. FINDINGS: Brain: No acute hemorrhage or abnormal extra-axial fluid collection. No acute stroke. Mild supratentorial periventricular and subcortical white matter changes. Age-appropriate generalized atrophy. Ventricles: No hydrocephalus. No midline shift. Bones/joints: Unremarkable. No acute fracture. Soft tissues: Unremarkable. Sinuses: Unremarkable as visualized. No acute sinusitis. IMPRESSION: No acute post-traumatic intracranial abnormality.
--- NOTE | 2023-01-29 01:30 | XR ---
EXAM: XR Bilateral Knees, 3 Views CLINICAL HISTORY: ITS.REASON XR Reason: pain TECHNIQUE: Three views of the bilateral knees. COMPARISON: 09/09/2017. FINDINGS: Bones/joints: Bilateral knee prostheses are noted in place and are normal anatomic position. No acute fracture. No dislocation. No joint effusions. Soft tissues: The soft tissues are unremarkable. IMPRESSION: 1. Bilateral knee prostheses are noted in place and are normal anatomic position. 2. No joint effusions.
--- NOTE | 2023-01-29 02:23 | ED ---
General Adult HPI - General Source: patient, RN notes reviewed, old records reviewed Mode of arrival: EMS Limitations: no limitations <Roni Barth - Last Filed: 01/29/23 04:51> <Brigido Dobbs - Last Filed: 01/29/23 08:51> - General Chief complaint: Psychiatric Symptoms Stated complaint: Mental health Time Seen by Provider: 01/28/23 22:50 - History of Present Illness Initial comments: Patient is a 67-year-old female who presents emergency department after being brought in by EMS for psychiatric concerns. Per the story, patient was driving a car, got out, knocked on someone's front door and said that her legs were hurting and sat down in the front yard and did not want to move. She apparently just recently released from inpatient psychiatry per EMS as a defender wristband on her. Patient denies any visual or auditory hallucinations. She denies any suicidal or homicidal ideations, attempts complaints. Complains of chronic bilateral knee pain which are from prior knee replacements. Denies any trauma. States there were hurting her today which is why she laid on the progress. Does not appear confused. Seems suspicious and unwilling to answer questions regarding her psychiatric history. Presents for further evaluation at this time. (Roni Barth) - Related Data Home Medications Medication Instructions Recorded Confirmed risperiDONE [RisperDAL] 1 mg PO BID 07/25/17 01/14/23 ALPRAZolam [ALPRAZolam XR] 2 mg PO BID 02/23/22 01/14/23 Citalopram Hydrobromide 20 mg PO BID 02/23/22 01/14/23 [Citalopram HBr] Donepezil [Aricept] 5 mg PO HS 02/23/22 01/14/23 Memantine HCl 10 mg PO BID 02/23/22 01/14/23 Propranolol HCl [Propranolol HCl 120 mg PO HS 02/23/22 01/14/23 ER] Trihexyphenidyl HCl 5 mg PO BID 02/23/22 01/14/23 Mirabegron [Myrbetriq] 50 mg PO DAILY 06/21/22 01/14/23 Atorvastatin [Lipitor] 40 mg PO HS 01/14/23 01/14/23 amLODIPine [Norvasc] 5 mg PO DAILY 01/14/23 01/14/23 traZODone HCL [Desyrel] 50 mg PO HS 01/14/23 01/14/23 Allergies Allergy/AdvReac Type Severity Reaction Status Date / Time No Known Allergies Allergy Verified 01/28/23 22:19 Review of Systems ROS Other: All systems not noted in ROS Statement are negative. <Roni Barth - Last Filed: 01/29/23 04:51> ROS Other: All systems not noted in ROS Statement are negative. <Brigido Dobbs - Last Filed: 01/29/23 08:51> ROS Statement: Those systems with pertinent positive or pertinent negative responses have been documented in the HPI. Review of Systems: CONST: Denies fever EYES: Denies blurry vision ENT: Denies nasal congestion C/V: Denies Chest pain RESP: Denies shortness of breath GI: Denies abdominal pain : Denies dysuria SKIN: Denies rash. MSK: Endorses bilateral knee pain NEURO: Denies headache PSYCH: Denies suicidal and homicidal ideations/plans/attempts. Denies visual or auditory hallucinations. (Roni Barth) Past Medical History Past Medical History: Hypertension, Osteoarthritis (OA) Additional Past Medical History / Comment(s): uses walker, left leg in knee immobilizer. Recent injury to left knee states "knee gave out", narrow esophagus History of Any Multi-Drug Resistant Organisms: None Reported Past Surgical History: Joint Replacement Additional Past Surgical History / Comment(s): left knee replacement, and repair, right knee replacement and revision, ruptured ovarian cyst repair Past Anesthesia/Blood Transfusion Reactions: No Reported Reaction Additional Past Anesthesia/Blood Transfusion Reaction / Comment(s): no problems with prior blood transfusion Past Psychological History: Anxiety Smoking Status: Never smoker Past Alcohol Use History: None Reported Past Drug Use History: None Reported - Past Family History Mother Family Medical History: No Reported History Father Family Medical History: Cancer Additional Family Medical History / Comment(s): Jaw and pancreatic cancer. Brother(s) Family Medical History: Cancer Additional Family Medical History / Comment(s): cancer <Roni Barth - Last Filed: 01/29/23 04:51> General Exam Limitations: no limitations <Roni Barth - Last Filed: 01/29/23 04:51> - General Exam Comments Initial Comments: General: Appears in no acute distress. HEAD: Normal with no signs of head trauma. EYES: PERRLA, EOMI, conjunctiva normal, no discharge. Pupils 3 mm and equal bilaterally. ENT: Hearing grossly intact, normal oropharynx. RESPIRATORY: Clear breath sounds bilaterally. No wheezes, rales, or rhonchi. C/V: Regular rate and rhythm. S1 and S2 auscultated, peripheral pulses 2+ and intact throughout ABD: Abd is soft, nontender, nondistended EXT: Normal range of motion, no obvious deformity. No obvious injuries. Pelvis stable. No back tenderness palpation. SKIN: Old scars located over bilateral anterior knees. NEURO: Alert and oriented 4. No obvious deficits. Moving all 4 extremities without issue. (Roni Barth) Course Vital Signs 01/28/23 01/29/23 01/29/23 22:19 00:34 02:42 Temperature 97.7 F Pulse Rate 91 89 73 Respiratory 18 18 18 Rate Blood Pressure 152/85 141/86 127/75 O2 Sat by Pulse 100 100 98 Oximetry 01/29/23 06:25 Temperature Pulse Rate 105 H Respiratory 18 Rate Blood Pressure 152/83 O2 Sat by Pulse 97 Oximetry Medical Decision Making - Lab Data Result diagrams: 01/29/23 00:33 01/28/23 23:39 <Roni Barth - Last Filed: 01/29/23 04:51> - Lab Data Result diagrams: 01/29/23 00:33 01/28/23 23:39 <Brigido Dobbs - Last Filed: 01/29/23 08:51> - Medical Decision Making Was pt. sent in by a medical professional or institution (, PA, MANAGER TITLE, urgent care, hospital, or group home...) When possible be specific @ -No Did you speak to anyone other than the patient for history (EMS, parent, family, police, friend...)? What history was obtained from this source @ -No Did you review nursing and triage notes (agree or disagree)? Why? @ -I reviewed and agree with nursing and triage notes Were old charts reviewed (outside hosp., previous admission, EMS record, old EKG, old radiological studies, urgent care reports/EKG's, group home records)? Report findings @ -No old charts were reviewed Differential Diagnosis (chest pain, altered mental status, abdominal pain women, abdominal pain men, vaginal bleeding, weakness, fever, dyspnea, syncope, headache, dizziness, GI bleed, back pain, seizure, CVA, palpatations, mental health, musculoskeletal)? @ -Differential Mental Health Depression, anxiety, bipolar, psychosis, schizophrenia, borderline personality, situational depression, adjustment disorder, behavioral disorder, brain tumor, malingering, substance abuse, encephalopathy, medication reaction, dementia, hypothyroidism, degenerative neurologic disorder, lupus.... This is not meant to be all-inclusive list EKG interpreted by me (3pts min.). @ -None done X-rays interpreted by me (1pt min.). @ -Bilateral knee x-ray showed knee replacements but no obvious acute process. CT interpreted by me (1pt min.). @ -CT brain shows no obvious acute intracranial process. U/S interpreted by me (1pt. min.). @ -None done What testing was considered but not performed or refused? (CT, X-rays, U/S, labs)? Why? @ -None What meds were considered but not given or refused? Why? @ -None Did you discuss the management of the patient with other professionals (professionals i.e. , PA, MANAGER TITLE, lab, RT, psych nurse, social studies department chair, environmental officer, teacher, command center officer, briefcase sewer)? Give summary @ -Discussed with EPS, and there is concern that is maybe more dementia and not psychiatry despite the recent psychiatric admission. She'll discuss the case with her psychiatrist who also evaluated the patient. Patient may require admission for placement. Was smoking cessation discussed for >3mins.? @ -No Was critical care preformed (if so, how long)? @ -No Were there social determinants of health that impacted care today? How? (Homelessness, low income, unemployed, alcoholism, drug addiction, transportati on, low edu. Level, literacy, decrease access to med. care, prison, rehab)? @ -No Was there de-escalation of care discussed even if they declined (Discuss DNR or withdrawal of care, Hospice)? DNR status @ -No What co-morbidities impacted this encounter? (DM, HTN, Smoking, COPD, CAD, Cancer, CVA, ARF, Chemo, Hep., AIDS, mental health diagnosis, sleep apnea, morbid obesity)? @ -Reported history of psychiatric illness Was patient admitted / discharged? Hospital course, mention meds given and route, prescriptions, significant lab abnormalities, going to OR and other pertinent info. @ -Based on the patient's presentation and physical exam, presents for psychiatric evaluation. Brought in by EMS for abnormal behavior. Was placed in green scrubs. Complaining of bilateral knee pain. We will obtain the x-rays, CT brain, as well as basic labs. Vital signs within acceptable limits. Patient was in agreement this plan. Patient will require psychiatric evaluation. Labs are within acceptable limits. Imaging is unremarkable. At this time patient is medically cleared for reevaluation by psychiatry. Disposition is pending psychiatric evaluation. EPS is notified. EPS has evaluated the patient and is waiting on urine studies. Believes there may be a component dementia to this. She reached out to the patient's who states that the patient's memory has gotten worse and he wanted to be placed as he can no longer handle her at home. Despite being recently placed in geriatric psychiatry. EPS believes this may be more of a dementia case with med ical admission for placement. She will discuss the case with psychiatry. Urine studies pending. Undiagnosed new problem with uncertain prognosis? @ -No Drug Therapy requiring intensive monitoring for toxicity (Heparin, Nitro, Insulin, Cardizem)? @ -No Were any procedures done? @ -No Diagnosis/symptom? @ -Bilateral knee pain Acute, or Chronic, or Acute on Chronic? @ -Chronic Uncomplicated (without systemic symptoms) or Complicated (systemic symptoms)? @ -Uncomplicated Side effects of treatment? @ -No Exacerbation, Progression, or Severe Exacerbation? @ -No Poses a threat to life or bodily function? How? (Chest pain, USA, NV, pneumonia, PE, COPD, DKA, ARF, appy, cholecystitis, CVA, Diverticulitis, Homicidal, Suicidal, threat to staff... and all critical care pts) @ -No Diagnosis/symptom? @ -Encounter for psychiatric evaluation Acute, or Chronic, or Acute on Chronic? @ -Acute Uncomplicated (without systemic symptoms) or Complicated (systemic symptoms)? @ -Uncomplicated Side effects of treatment? @ -none Exacerbation, Progression, or Severe Exacerbation] @ -no Poses a threat to life or bodily function? @ -no (Roni Barth) Was patient admitted / discharged? Hospital course, mention meds given and route, prescriptions, significant lab abnormalities, going to OR and other pertinent info. @ -Patient was evaluated by EPS and they determined that the patient was not a mental health patient and that the patient was just getting progressive demen tia. was spoken to him he stated he could no longer take care of her at home with her dementia. I spoke with Dr. petit he agreed to admit the patient admitted the patient I wrote admitting orders Undiagnosed new problem with uncertain prognosis? @ -No Drug Therapy requiring intensive monitoring for toxicity (Heparin, Nitro, Insulin, Cardizem)? @ -No Were any procedures done? @ -No Diagnosis/symptom? @ -Altered mental status Acute, or Chronic, or Acute on Chronic? @ -Acute on chronic Uncomplicated (without systemic symptoms) or Complicated (systemic symptoms)? @ -Complicated Side effects of treatment? @ -No Exacerbation, Progression, or Severe Exacerbation? @ -No Poses a threat to life or bodily function? How? (Chest pain, USA, NV, pneumonia, PE, COPD, DKA, ARF, appy, cholecystitis, CVA, Diverticulitis, Homicidal, Suicidal, threat to staff... and all critical care pts) @ -No (Brigido Dobbs) - Lab Data Lab Results 01/28/23 01/29/23 01/29/23 Range/Units 23:39 00:33 07:28 WBC 6.1 (3.8-10.6) k/uL RBC 4.44 (3.80-5.40) m/uL Hgb 11.9 (11.4-16.0) gm/dL Hct 36.7 (34.0-46.0) % MCV 82.7 (80.0-100.0) fL MCH 26.8 (25.0-35.0) pg MCHC 32.4 (31.0-37.0) g/dL RDW 15.6 H (11.5-15.5) % Plt Count 145 L (150-450) k/uL MPV 7.7 Neutrophils % 52 % Lymphocytes % 31 % Monocytes % 11 % Eosinophils % 2 % Basophils % 0 % Neutrophils # 3.2 (1.3-7.7) k/uL Lymphocytes # 1.9 (1.0-4.8) k/uL Monocytes # 0.6 (0-1.0) k/uL Eosinophils # 0.2 (0-0.7) k/uL Basophils # 0.0 (0-0.2) k/uL Sodium 139 (137-145) mmol/L Potassium (3.5-5.1) mmol/L Chloride 109 H (98-107) mmol/L Carbon Dioxide 26 (22-30) mmol/L Anion Gap 4 mmol/L BUN 13 (7-17) mg/dL Creatinine 0.69 (0.52-1.04) mg/dL Est GFR (CKD-EPI)AfAm >90 (>60 ml/min/1.73 sqM) Est GFR (CKD-EPI)NonAf 90 (>60 ml/min/1.73 sqM) Glucose 100 H (74-99) mg/dL Calcium 8.4 (8.4-10.2) mg/dL Urine Color Colorless Urine Appearance Clear (Clear) Urine pH 6.5 (5.0-8.0) Ur Specific [place] 1.005 (1.001-1.035) Urine Protein Negative (Negative) Urine Glucose (UA) Negative (Negative) Urine Ketones Negative (Negative) Urine Blood Negative (Negative) Urine Nitrite Negative (Negative) Urine Bilirubin Negative (Negative) Urine Urobilinogen <2.0 (<2.0) mg/dL Ur Leukocyte Esterase Large H (Negative) Urine RBC 1 (0-5) /hpf Urine WBC 2 (0-5) /hpf Ur Squamous Epith Cells 1 (0-4) /hpf Urine Bacteria Rare H (None) /hpf Urine Mucus Rare H (None) /hpf Serum Alcohol <10 mg/dL Disposition <Roni Barth - Last Filed: 01/29/23 04:51> Time of Disposition: 08:51 <Brigido Dobbs - Last Filed: 01/29/23 08:51> Clinical Impression: Knee pain, Altered mental status, Dementia Disposition: ADMITTED IP TO THIS HOSP Referrals: Lilly Martinez MD [Primary Care Provider] - 1-2 days
[2023-01-29] MEDS ORDERED: LORazepam 0.5 MG TAB PO STA ×2 (04:51→05:58)
[2023-01-29 08:00] LABS: Appearance,Urine Clear (Clear); Bacteria,Urine Rare /hpf; Bilirubin,Urine Negative (Negative); Blood,Urine Negative (Negative); Color,Urine Colorless; Glucose,Urine (UA) Negative (Negative); Ketones,Urine Negative (Negative); Leukocyte Esterase,Urine Large (Negative); Mucus,Urine Rare /hpf; Nitrite,Urine Negative (Negative); PH, Urine 6.5 (5.0-8.0); Protein,Urine Negative (Negative); RBC,Urine 1 /hpf (0-5); Specific Gravity,Urine 1.005 (1.001-1.035); Squamous Epithelial Cell,Urine 1 /hpf (0-4); Urobilinogen,Urine <2.0 mg/dL (<2.0); WBC,Urine 2 /hpf (0-5)
[2023-01-29] MEDS ORDERED: SODIUM CHLORIDE 0.9% 1,000 ML IV ONE (08:51)
--- NOTE | 2023-01-29 12:11 | P.HPIM ---
History of Present Illness This is a pleasant 67 years old female with past medical history of Hypertension, Osteoarthritis , uses walker, left leg in knee immobilizer. , left knee replacement, and repair, right knee replacement and revision, , Anxiety Patient is lying in bed, answers questions appropriately but slowly, she has tremor of the head and upper and lower extremity,SITTER at bedside. Patient states that she lost her medication and she drove her car to hospital but she lost her way to [facility] was found in the ER by someone and brought to emergency room by police, this story was confirmed by the Ko whom I called and I talked to him he says that last night she took his car and then he was told that she was seen in the yard and brought by police to the hospital. He haven't seen her since then. He states that last week she came to medical and Hospital this facility. Patient has been evaluated by EPS nursing and transferred to geriatric psychiatric unit. As per she was in [facility] and [place] and she was released last Sunday. He states that over the last 2 days she was still confused at her baseline. Patient kole carlson thinks this is her baseline and he denies any new complaints. However the when I talked to him he does not want her to go back to his home and he wants her to [facility], explained to the patient cannot live in the hospital. to come tomorrow to see the patient and discuss her further care states that he has been given her clonazepam 0.5 mg Patient is asking about her home medication which she did not get yet as she describes. Patient has been complaining of from frontal headache of one day's lactic pressure with no neurological deficit as she describes, no weakness or numbness, no double vision or slurred speech or difficulty swallowing. Patient also denies chest pain or dyspnea. Denies urinary or GI complaints like no diarrhea or vomiting or urgency of urination or dysuria. She only had some nausea. She denies smoking alcohol or illicit drugs I called the from work after patient gave me verbal consent at [phone] and left a message to call back MAPS was checked and she was given clonazepam 0.5 mg 3 tablets over 3 days on 01/27/23 and 1 mg, also 3 tablets over 3 days on 01/27/23. She has alprazolam Xanax 2 mg, 60 tablets over 30 days on 12/27/22 Vitals stable, afebrile She has unremarkable CBC, BMP, urine analysis. SERUM alcohol less than 10 Knee x-ray: Bilateral prostheses, no joint effusion CT of the brain: No acute abnormality Emergency room patient received Ativan 0.5 mg 2 Review of Systems Review of systems CONSTITUTIONAL: No fever, no malaise, no fatigue. HEENT: No recent visual problems or hearing problems. Denied any sore throat. CARDIOVASCULAR: No orthopnea, PND, no palpitations, no syncope. PULMONARY: No shortness of breath, no cough, no hemoptysis. GASTROINTESTINAL: No diarrhea, no nausea, no vomiting, no abdominal pain. Normoactive bowel sounds. NEUROLOGICAL: No headaches, no weakness, no numbness. HEMATOLOGICAL: Denies any bleeding or petechiae. GENITOURINARY: Denies any burning micturition, frequency, or urgency. MUSCULOSKELETAL/RHEUMATOLOGICAL: Denies any joint pain, swelling, or any muscle pain. ENDOCRINE: Denies any polyuria or polydipsia. Past Medical History Past Medical History: Hypertension, Osteoarthritis (OA) Additional Past Medical History / Comment(s): uses walker, left leg in knee immobilizer. Recent injury to left knee states "knee gave out", narrow esophagus History of Any Multi-Drug Resistant Organisms: None Reported Past Surgical History: Joint Replacement Additional Past Surgical History / Comment(s): left knee replacement, and repair, right knee replacement and revision, ruptured ovarian cyst repair Past Anesthesia/Blood Transfusion Reactions: No Reported Reaction Additional Past Anesthesia/Blood Transfusion Reaction / Comment(s): no problems with prior blood transfusion Past Psychological History: Anxiety Smoking Status: Never smoker Past Alcohol Use History: None Reported Past Drug Use History: None Reported - Past Family History Mother Family Medical History: No Reported History Father Family Medical History: Cancer Additional Family Medical History / Comment(s): Jaw and pancreatic cancer. Brother(s) Family Medical History: Cancer Additional Family Medical History / Comment(s): cancer Medications and Allergies Home Medications Medication Instructions Recorded Confirmed Type risperiDONE [RisperDAL] 1 mg PO BID 07/25/17 01/14/23 History ALPRAZolam [ALPRAZolam XR] 2 mg PO BID 02/23/22 01/14/23 History Citalopram Hydrobromide 20 mg PO BID 02/23/22 01/14/23 History [Citalopram HBr] Donepezil [Aricept] 5 mg PO HS 02/23/22 01/14/23 History Memantine HCl 10 mg PO BID 02/23/22 01/14/23 History Propranolol HCl [Propranolol HCl 120 mg PO HS 02/23/22 01/14/23 History ER] Trihexyphenidyl HCl 5 mg PO BID 02/23/22 01/14/23 History Mirabegron [Myrbetriq] 50 mg PO DAILY 06/21/22 01/14/23 History Atorvastatin [Lipitor] 40 mg PO HS 01/14/23 01/14/23 History amLODIPine [Norvasc] 5 mg PO DAILY 01/14/23 01/14/23 History traZODone HCL [Desyrel] 50 mg PO HS 01/14/23 01/14/23 History Allergies Allergy/AdvReac Type Severity Reaction Status Date / Time No Known Allergies Allergy Verified 01/28/23 22:19 Physical Exam Vitals: Vital Signs Temp Pulse Pulse Resp BP BP Pulse Ox 01/29/23 10:25 98.7 F 105 H 18 165/83 97 01/29/23 09:51 98.4 F 75 18 151/80 98 01/29/23 06:25 105 H 18 152/83 97 01/29/23 02:42 73 18 127/75 98 01/29/23 00:34 89 18 141/86 100 01/28/23 22:19 97.7 F 91 18 152/85 100 Intake and Output 01/28/23 01/29/23 01/29/23 22:59 06:59 14:59 Other: Weight 79.379 kg -GENERAL: The patient is alert and oriented x3, slowly to respond, not in any acute distress. Well developed, well nourished. She has tremor of the head arms and legs HEENT: Pupils are round and equally reacting to light. EOMI. No scleral icterus. No conjunctival pallor. Normocephalic, atraumatic. No pharyngeal erythema. No thyromegaly. CARDIOVASCULAR: S1 and S2 present. No murmurs, rubs, or gallops. PULMONARY: Chest is clear to auscultation, no wheezing or crackles. ABDOMEN: Soft, nontender, nondistended, normoactive bowel sounds. No palpable organomegaly. MUSCULOSKELETAL: No joint swelling or deformity. EXTREMITIES: No cyanosis, clubbing, or pedal edema. NEUROLOGICAL: Gross neurological examination did not reveal any focal deficits. SKIN: No rashes. no petechiae. Results CBC & Chem 7: 01/29/23 00:33 01/28/23 23:39 Labs: Abnormal Lab Results - Last 24 Hours (Table) 01/28/23 01/29/23 01/29/23 Range/Units 23:39 00:33 07:28 RDW 15.6 H (11.5-15.5) % Plt Count 145 L (150-450) k/uL Chloride 109 H (98-107) mmol/L Glucose 100 H (74-99) mg/dL Ur Leukocyte Esterase Large H (Negative) Urine Bacteria Rare H (None) /hpf Urine Mucus Rare H (None) /hpf Assessment and Plan Assessment: ongoing memory problems, mostly related progressive dementia. 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 Continue same treatment. Continue with symptomatic treatment. Resume home medication. Monitor labs and vitals. DVT and GI prophylaxis. Further recommendations as per clinical course of the patient DVT prophylaxis: Subcutaneous heparin GI Prophylaxis: Pepcid PT/OT: Pending Prognosis is guarded
[2023-01-29] MEDS: CITALOPRAM HYDROBROMIDE 20 MG TAB PO SCH ×2 (12:15→20:35)
[2023-01-29] MEDS: amLODIPine 5 MG TAB PO SCH (12:15)
[2023-01-29] MEDS: MEMANTINE 10 MG TAB PO SCH ×2 (12:16→20:36)
[2023-01-29] MEDS: TRIHEXYPHENIDYL 2 MG TAB PO SCH ×2 (12:16→20:37)
[2023-01-29] MEDS: risperiDONE 1 MG TAB PO SCH ×2 (12:16→20:36)
[2023-01-29] MEDS: clonazePAM 1 MG TAB PO SCH (12:23)
[2023-01-29] MEDS ORDERED: busPIRone HCl 10 MG TAB PO PRN (13:01)
--- NOTE | 2023-01-29 13:09 | P.CN ---
Psychiatric Consult - . Consult date: 01/29/23 Consult:: 01/29/23 12:45 IDENTIFYING DATA: This patient is a 67-year-old female with history of dementia, who currently lives with her in a house. REASON FOR REFERRAL: Psychiatry was consulted for "anxiety, OCD, bipolar". HISTORY OF PRESENT ILLNESS: The patient presented to the hospital yesterday via EMS. Patient apparently was confused while driving and got lost and side on someone's lawn and they called the police. Patient apparently was recently discharged from [facility] inpatient psychiatric unit. Patient was seen lying in bed today and agreeable to speak to rewriter. She states she told her that her feet were hurting and she took his car and was driving to go to the hospital and was trying to go to [facility] however, lost. She states that she knows her full name and stated it, she believed that she was "66 years old". She also noted that she was in [facility]. She knew the correct year and struggled with the date however did not did know the correct month. She did not remember 3 words after 5 minutes. She did claim that she was feeling anxious, denies any depression at this time. Claims that her sleep has been on and off, appetite as been fair into denying any paranoia at this time. At this time patient denies any suicidal or homical ideations, intent or plan. Patient denies any auditory, visual hallucinations and denies any paranoia or delusions. Patients admits to using no recreational drugs or cigarettes PAST PSYCHIATRIC HISTORY: Patient has a a history of dementia and anxiety. Patient is currently on Risperdal, trazodone, Celexa, Klonopin and Aricept and Namenda. Patient was last admitted to [facility] psychiatric unit about a week ago. Patient denies any psychiatric outpatient follow-up. Patient denies any history of suicide attempts in the past. Past Medical History: Hypertension, Osteoarthritis (OA) Additional Past Medical History / Comment(s): uses walker, left leg in knee immobilizer. Recent injury to left knee states "knee gave out", narrow esophagus History of Any Multi-Drug Resistant Organisms: None Reported Past Surgical History: Joint Replacement Additional Past Surgical History / Comment(s): left knee replacement, and repair, right knee replacement and revision, ruptured ovarian cyst repair Past Anesthesia/Blood Transfusion Reactions: No Reported Reaction Additional Past Anesthesia/Blood Transfusion Reaction / Comment(s): no problems with prior blood transfusion Past Psychological History: Anxiety Smoking Status: Never smoker Past Alcohol Use History: None Reported Past Drug Use History: None Reported ALLERGIES: as per EMR. CHEMICAL DEPENDENCY HISTORY: as per HPI. FAMILY PSYCHIATRIC/SUBSTANCE USE HISTORY: denies SOCIAL HISTORY: Patient was born and raised in [place]. She states that she completed high school and some college. 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 She claims that she does not have any kids, she lives with her in a house. MENTAL STATUS EXAM: General Appearance: Patient appears to be tall, poor dentition, stated age is alert, comes to cooperate, Patient appears to have fair hygiene and grooming wearing hospital gown with poor eye contact. Behavior: Patient is calmly lying in bed without any agitated behavior. Speech: Patient's speech is fluent and nonpressured. Mood/Affect: Patient reports their mood is "anxious", affect is congruent and constricted Suicidality/Homicidality: Patient denies having any suicidal or homicidal ideation intent or plan. Perceptions: Patient denies any visual hallucinations and denies any auditory hallucinations Though content/process: Rambles at times, concrete. Delusions or paranoia. Memory and concentration: AOX2, does not know the correct date today. Cannot spell "WORLD" backwards. He was not able to recall 3 of 3 words after 5 minutes. Judgment and insight: Limited IMPRESSIONS: Major neurocognitive disorder PLAN: -At this time patient DOES NOT meet criteria for inpatient psychiatric admission. -Delirium precautions recommended with patient including - avoiding use of narcotics and CARGOMAN sedatives, limit anticholinergic medications when possible, frequent re-orientation, minimize use of restraints, open window shades during the day and close them at night -Would recommend the following medication changes/additions: Continue with current psychiatric medications. Ordered an EKG to check QTC level due to patient's dose of Celexa. consider keeping lower dose of klonopin active due to risk of withdrawal delirium. added melatonin 3 mg qhs for sleep and buspar 10 mg tid prn for anxiety. -SW/case advocate to look into placement as it appears she is not able to be taken care of at home. -Communicated plan to patient's nurse -Psychiatry will sign off at this time -Please contact with any questions. 01/29/23 13:02
[2023-01-29 13:27] LABS: Urine Alcohol Negative (Negative); Urine Barbiturate Negative (Negative); Urine Cocaine Negative (Negative); Urine Methadone Negative (Negative); Urine Opiates Negative (Negative); Urine Phencyclidine Negative (Negative)
[2023-01-29] MEDS: HEPARIN SODIUM,PORCINE/PF 5,000 UNIT/0.5 ML SYRINGE SQ SCH (20:36)
[2023-01-29] MEDS: FAMOTIDINE 20 MG/2 ML VIAL IV SCH (20:36)
[2023-01-29] MEDS ORDERED: DONEPEZIL 5 MG TAB PO SCH (21:00)
[2023-01-29] MEDS ORDERED: MELATONIN 3 MG TABLET PO SCH (21:00)
[2023-01-29] MEDS ORDERED: PROPRANOLOL LA 60 MG CAP.SA.24H PO SCH (21:00)
[2023-01-29] MEDS ORDERED: traZODone HCL 50 MG TAB PO SCH (21:00)
[2023-01-29] MEDS ORDERED: ATORVASTATIN 40 MG TAB PO SCH (21:00)
[2023-01-30] MEDS: FAMOTIDINE 20 MG/2 ML VIAL IV SCH (09:00)
[2023-01-30] MEDS: clonazePAM 1 MG TAB PO SCH (09:00)
[2023-01-30] MEDS ORDERED: Mirabegron [Myrbetriq] 50 MG Tab.Er.24h PO SCH (09:00)
[2023-01-30] MEDS: amLODIPine 5 MG TAB PO SCH (09:00)
[2023-01-30] MEDS: CITALOPRAM HYDROBROMIDE 20 MG TAB PO SCH (09:00)
[2023-01-30] MEDS: HEPARIN SODIUM,PORCINE/PF 5,000 UNIT/0.5 ML SYRINGE SQ SCH (09:01)
[2023-01-30] MEDS: MEMANTINE 10 MG TAB PO SCH (09:01)
[2023-01-30] MEDS: risperiDONE 1 MG TAB PO SCH (09:01)
[2023-01-30] MEDS: TRIHEXYPHENIDYL 2 MG TAB PO SCH (09:02)
[2023-01-30 13:11] VITALS: BP 145/84; PULSE 72; RESP 18; TEMP 98.4
[2023-01-30 13:13] VITALS: BMI 27.3
--- NOTE | 2023-01-31 01:06 | P.DS ---
Providers Date of admission: 01/29/23 08:52 Attending physician: Chato Reynolds MD Consults: 01/29/23 12:02 Consult Physician Routine Consulting Provider: Alex Galindo Consult Reason/Comments: anxiety ,OCD , Bipolar Do you want consulting provider notified?: Yes Primary care physician: Lilly Martinez [facility] Course: Diagnoses: ongoing memory problems, mostly related progressive dementia. Possible Alzheimer dementia anxiety, bipolar illness, obsessive-compulsive disorder and history of panic disorder Inability to take her off herself History of osteoarthritis with knee pain, history of knee replacement Hypertension Hospital course: This is a pleasant 67 years old female with past medical history of Hypertension, Osteoarthritis , uses walker, left leg in knee immobilizer. , left knee replacement, and repair, right knee replacement and revision, ,Anxiety Patient states that she lost her medication and she drove her car to hospital but she lost her way to [facility] and she was found in the yard by someone and brought to emergency room by police, this story was confirmed by the Ko whom he says that last night she took his car and then he was told that she was seen in the yard and brought by police to the hospital. He haven't seen her since then. He states that last week she came to medical and Hospital this facility. Patient has been evaluated by EPS nursing and transferred to geriatric psychiatric unit. As per she was in ([facility]) in [place] and she was released last Sunday. He states that over the last 2 days she was still confused at her baseline. Patient thinks this is her baseline and he denies any new complaints. However the when I talked to him he does not want her to go back to his home and he wants her to [facility], and he is agreeable to talk director social welfare for placement however I spoke to our shelter case manager and apparently her cannot afford send her to rehab now as she doesn't have medicated but as per shelter case manager patient is going to apply for Medicaid this time. Alternatively told me he is agreeable to take her home. Also I told me that she has appointment with [facility] tomorrow, both patient and agreeable to follow up with it. I recommended to the hospital the patient to avoid driving by the patient has she will be at risk of accidents given her dementia and memory problem Patient denies any other symptoms, patient was very pleasant relaxed today and willing to go home today. No new complaint. Patient was evaluated and cleared for discharge by psychiatrist with sign of the case Problems and management plan were discussed with the patient and he verbalized understanding and acceptance Patient was found stable and can be discharged home in guarded prognosis however he needs follow-up as an outpatient. Patient was instructed to follow up with PCP Dr. Martinez within one week and patient agrees Patient was instructed to follow up with her psychiatrist at [facility] tomorrow and she is agreeable Physical exam -Gen: patient is a AAOx3, no distress. Memory problems CVS: S1-S2, RRR, no murmur Lungs: B/L CTA, no wheezing Abdomen: soft, no distention, no tenderness, positive bowel sounds Extremity: no leg edema or induration Time spent more than 35 minutes Plan - Discharge Summary Discharge Rx Participant: Yes New Discharge Prescriptions: New RX: Melatonin 3 mg PO HS 30 Days #30 tab Continue RX: Citalopram Hydrobromide [Citalopram HBr] 20 mg PO BID RX: Mirabegron [Myrbetriq] 50 mg PO DAILY RX: amLODIPine [Norvasc] 5 mg PO DAILY RX: clonazePAM [KlonoPIN] See Taper PO DIRECTED RX: Trihexyphenidyl HCl 5 mg PO BID RX: Propranolol HCl [Propranolol HCl ER] 120 mg PO HS RX: Memantine HCl 10 mg PO BID RX: Donepezil [Aricept] 5 mg PO HS RX: traZODone HCL [Desyrel] 50 mg PO HS RX: Atorvastatin [Lipitor] 40 mg PO HS RX: risperiDONE 0.5 mg PO BID Discharge Medication List RX: Citalopram Hydrobromide [Citalopram HBr] 20 mg PO BID 02/23/22 [History] RX: Donepezil [Aricept] 5 mg PO HS 02/23/22 [History] RX: Memantine HCl 10 mg PO BID 02/23/22 [History] RX: Propranolol HCl [Propranolol HCl ER] 120 mg PO HS 02/23/22 [History] RX: Trihexyphenidyl HCl 5 mg PO BID 02/23/22 [History] RX: Mirabegron [Myrbetriq] 50 mg PO DAILY 06/21/22 [History] RX: Atorvastatin [Lipitor] 40 mg PO HS 01/14/23 [History] RX: amLODIPine [Norvasc] 5 mg PO DAILY 01/14/23 [History] RX: traZODone HCL [Desyrel] 50 mg PO HS 01/14/23 [History] RX: clonazePAM [KlonoPIN] See Taper PO DIRECTED 01/29/23 [History] RX: risperiDONE 0.5 mg PO BID 01/29/23 [History] RX: Melatonin 3 mg PO HS 30 Days #30 tab 01/30/23 [Rx] Follow up Appointment(s)/Referral(s): Lilly Martinez MD [Primary Care Provider] - 1-2 days (The office was not available to make appointment please call and make follow up appointment.) Activity/Diet/Wound Care/Special Instructions: Heart healthy diet activity is restricted till you see your doctor we recommend to avoid driving vehicle or using heavy machineries We recommend to follow up with your psychiatrist tomorrow,as you informed the medical team Discharge/Stand Alone Forms: Who Do I Call?, Assisted Living Facilities, Community Resources, Help In The Home Discharge Disposition: HOME SELF-CARE
[2023-02-01] MEDS ORDERED: clonazePAM 0.5 MG TAB PO SCH (09:00)
== END 2023-01-30 15:01 | disposition home or self-care (01) ==
LOC: EC 22:15 → 5NMEDONC 01-29 08:52 → INTOOBSV 01-29 08:52 → 5NMEDONC 01-29 09:18
PROVIDERS: ADMIT Internal Medicine; ATTEND Internal Medicine
DX: F03.94 Unspecified dementia, unspecified severity, with anxiety (principal); R41.3 Other amnesia; F31.9 Bipolar disorder, unspecified; F42.9 Obsessive-compulsive disorder, unspecified; F41.0 Panic disorder [episodic paroxysmal anxiety]; F41.9 Anxiety disorder, unspecified; G89.29 Other chronic pain; M25.561 Pain in right knee; M25.562 Pain in left knee; I10 Essential (primary) hypertension; M19.90 Unspecified osteoarthritis, unspecified site; R25.1 Tremor, unspecified; R51.9 Headache, unspecified; R11.0 Nausea; Z79.899 Other long term (current) drug therapy; Z96.653 Presence of artificial knee joint, bilateral; Z87.42 Personal history of other diseases of the female genital tract; Z98.890 Other specified postprocedural states; Z80.0 Family history of malignant neoplasm of digestive organs
CPT/HCPCS: 96376; 96372 ×2; 96374; 82075; 99285; 51798; 36415; 93005; 97162; 97166; 80048; 85025; 81001; 80306; 73560; 70450; G0480; J1644 ×2; 80320